=== PATIENT | male | born 1945 | race Caucasian/White ===

== ENCOUNTER 2018-04-08 09:46 | Inpatient (IN) ==
[2018-04-08] MEDS ORDERED: Morphine Inj 4 MG/ML Vial IV.PUSH ONE (11:22)
[2018-04-08] MEDS ORDERED: MethylPREDNISolone Sod Succinate Inj 125 MG/2 ML Vial IV.PUSH ONE (11:22)
[2018-04-08] MEDS ORDERED: Sod Chloride 0.9% Inj 1,000 ML IV.SIG ONE (11:22)
--- NOTE | 2018-04-08 11:30 | ED ---
HPI General Chief Complaint: Abdominal Pain Stated Complaint: Abdominal Complaint/Asthma Time Seen by Provider: 04/08/18 10:39 Source: patient Mode of arrival: ambulatory Limitations: no limitations History of Present Illness HPI narrative: 72-year-old male who presents to the ED for evaluation of abdominal pain. Patient has had abdominal pain, white stools, nausea vomiting as well as shortness of breath for the past week or 2. Per patient the pain has worsened for the past week and he has not been able to keep much down. Per patient he was seen by for his asthma and was given prednisone but he states that the pain is does he was given was too low for him. Per patient he usually takes high doses of steroids when he gets about exacerbation and believes that this is the reason his shortness of breath still present. Per patient he is never had a white stools before. The white stool starts in once today. Per patient or solid. No liquidy. No chest pain but has shortness of breath with exertion as well as with wheezing. Uses inhalers at home with some relief. He denies any vomiting today and states that yesterday he felt very thirsty and had to drink a lot of water and was able to keep it down. Patient the pain currently is 4 out of 10 and is mostly diffuse in the abdomen but nothing seems to reproduce it on not. Denies any surgeries to his abdomen. No other medical issues. No blood in his stool. No blood thinners. No cardiac history Related Data Home Medications Medication Instructions Recorded Confirmed albuterol sulfate 2 puff INHALATION Q4-6H PRN 04/08/18 04/08/18 ipratropium-albuterol 3 ml INHALATION QID PRN 04/08/18 04/08/18 montelukast 10 mg PO QPM 04/08/18 04/08/18 omeprazole 40 mg PO DAILY 04/08/18 04/08/18 tamsulosin 0.4 mg PO DAILY 04/08/18 04/08/18 Allergies Allergy/AdvReac Type Severity Reaction Status Date / Time No Known Allergies Allergy Verified 04/08/18 10:44 Review of Systems ROS: all other systems reviewed are negative [facility] Medical History Medical History Diabetes (Acute) GERD (gastroesophageal reflux disease) (Acute) GERD (gastroesophageal reflux disease) (Acute) Pneumonia (Acute) Prostate enlargement (Acute) Surgical History Surgical History H/O shoulder surgery (Acute) History of back surgery (Acute) Hx of tonsillectomy (Acute) S/P wrist surgery (Acute) Social History Social History Substance History: No History of Abuse Second Hand Smoke Exposure: No Smoking Status: Current every day smoker Tobacco Type: Cigarettes How Often Do You Have a Drink Containing Alcohol: Unable to Obtain Recent Travel in [facility] within the Last 8 Weeks: Yes Recent Out of Country Travel within the Last 8 Weeks: No Immunization History Tetanus Immunization: <5 Years Exam Narrative Exam Narrative: GENERAL: Well-appearing in no distress. SKIN: Focused skin assessment warm/dry. HEAD: Atraumatic. Normocephalic. EYES: Pupils equal and round. No scleral icterus. No injection or drainage. ENT: No nasal bleeding or discharge. Mucous membranes pink and moist. Tongue is midline. No uvula deviation. NECK: Trachea midline. No JVD. CARDIOVASCULAR: Regular rate and rhythm. No murmur appreciated. RESPIRATORY: No accessory muscle use. Clear to auscultation. Breath sounds equal bilaterally. GASTROINTESTINAL: Abdomen soft, tender to palpation of the abdomen, nondistended. Hepatic and splenic margins not palpable. MUSCULOSKELETAL: No obvious deformities. No clubbing. No cyanosis. No edema. Full range of motion of the upper and lower extremities bilaterally. 2+ pulses bilaterally. NEUROLOGICAL: Awake and alert. No obvious cranial nerve deficits. Motor grossly within normal limits. Normal speech. PSYCHIATRIC: Appropriate mood and affect; insight and judgment normal. Course Initial Documented Vital Signs Temperature 97.9 F 04/08/18 09:51 Pulse Rate 95 H 04/08/18 09:51 Respiratory Rate 22 04/08/18 09:51 Blood Pressure 166/93 H 04/08/18 09:51 Pulse Oximetry 96 04/08/18 09:51 Last Documented Vital Signs Temperature 97.9 F 04/08/18 09:51 Pulse Rate 68 04/08/18 13:30 Respiratory Rate 19 04/08/18 13:30 Blood Pressure 136/78 04/08/18 13:30 Pulse Oximetry 96 04/08/18 13:30 Medical Decision Making MDM Narrative Medical decision making narrative: 72-year-old male who presents to the ED for evaluation of abdominal pain. Patient was properly examined and was found to have signs and symptoms consistent with appears to be abdominal pain. Unclear etiology. Labs and imaging ordered. Labs and imaging showed what appears to be acute liver injury. Unclear etiology at this time. I order hepatitis panel as well as ultrasound. Ultrasound and CAT scan cannot really visualize the gallbladder although appears to be present. At this time patient would require HIDA scan for further evaluation and treatment as well as GI consult for further evaluation of the symptoms. Case discussed with my attending who agrees with plan. Case discussed with the residents for readmission to their service. Medical Screen Exam Complete: Yes Emergency Medical Condition: Yes Differential Diagnosis Differential Diagnosis: Acute abdomen versus abdominal pain versus gastroenteritis versus gastritis versus white stools versus CHF versus ACS versus diverticulitis Medical Records Medical records reviewed: Yes I reviewed the patient's medical records. Lab Data Lab results reviewed: Yes I reviewed the patient's lab results. Result diagrams: 04/08/18 11:25 04/08/18 11:25 Lab Results 04/08/18 04/08/18 04/08/18 Range/Units 11:00 11:25 11:25 WBC 8.0 (4.0-11.0) th/mm3 RBC 4.88 (4.50-5.90) mil/mm3 Hgb 15.2 (13.0-17.0) gm/dL Hct 43.6 (39.0-51.0) % MCV 89.2 (80.0-100.0) fL MCH 31.2 (27.0-34.0) pg MCHC 34.9 (32.0-36.0) % RDW 15.4 (11.6-17.2) % Plt Count 213 (150-450) th/mm3 MPV 8.7 (7.0-11.0) fL Prelim Diff (Auto) Manual diff required WBC Differential Manual diff final Seg Neuts % (Manual) 46 (16-70) % Band Neuts % (Manual) 10 H (0-6) % Lymphocytes % (Manual) 25 (9-44) % Monocytes % (Manual) 13 H (0-8) % Eosinophils % (Manual) 4 (0-4) % Basophils % (Manual) 1 (0-2) % Myelocytes % (Man) 1 H (0-0) % Abs Neuts (Manual) 4.6 (1.8-7.7) th/mm3 Differential Comment . Platelet Estimate Normal (Normal) Platelet Morphology Normal (Normal) Sodium 134 L (136-145) meq/L Potassium 3.9 (3.5-5.1) meq/L Chloride 103 (98-107) meq/L Carbon Dioxide 22.3 (21.0-32.0) meq/L Anion Gap 9 (5-15) meq/L BUN 14 (7-18) mg/dL Creatinine 1.46 H (0.60-1.30) mg/dL Estimated GFR 48 L (>89) mL/min Random Glucose 120 H (74-106) mg/dL Lactic Acid (0.4-2.0) mmol/L Calcium 8.4 L (8.5-10.1) mg/dL Magnesium 2.1 (1.5-2.5) mg/dL Total Bilirubin 6.9 H (0.2-1.0) mg/dL AST 276 H (15-37) U/L ALT 424 H (12-78) U/L Alkaline Phosphatase 540 H (45-117) U/L Troponin I Less than 0.02 L (0.02-0.05) ng/mL Total Protein 6.9 (6.4-8.2) g/dL Albumin 3.1 L (3.4-5.0) g/dL Lipase 161 (73-393) U/L Urine Color Francine (Yellw/Straw) Urine Clarity Clear (Clear) Urine pH 6.0 (5.0-8.5) Ur Specific Gardner 1.005 (1.002-1.035) Urine Protein 30 H (Neg-Trace) mg/dL Urine Glucose (UA) Negative (Negative) mg/dL Urine Ketones Negative (Negative) mg/dL Urine Occult Blood Moderate H (Negative) Urine Nitrate Negative (Negative) Urine Bilirubin Negative (Negative) Urine Urobilinogen Less than 2 (Less than 2) mg/dL Ur Leukocyte Esterase Negative (Negative) Urine RBC 4 H (0-3) /hpf Urine WBC Less than 1 (0-5) /hpf Ur Squamous Epith Cells <1 (0-5) /hpf Urine Mucus Few H (Occasional) /lpf Micro UA Comment Culture not ind Ur Microscopic Review Not Reportable Urine Culture Comments Culture not ind 04/08/18 Range/Units 11:49 WBC (4.0-11.0) th/mm3 RBC (4.50-5.90) mil/mm3 Hgb (13.0-17.0) gm/dL Hct (39.0-51.0) % MCV (80.0-100.0) fL MCH (27.0-34.0) pg MCHC (32.0-36.0) % RDW (11.6-17.2) % Plt Count (150-450) th/mm3 MPV (7.0-11.0) fL Prelim Diff (Auto) WBC Differential Seg Neuts % (Manual) (16-70) % Band Neuts % (Manual) (0-6) % Lymphocytes % (Manual) (9-44) % Monocytes % (Manual) (0-8) % Eosinophils % (Manual) (0-4) % Basophils % (Manual) (0-2) % Myelocytes % (Man) (0-0) % Abs Neuts (Manual) (1.8-7.7) th/mm3 Differential Comment Platelet Estimate (Normal) Platelet Morphology (Normal) Sodium (136-145) meq/L Potassium (3.5-5.1) meq/L Chloride (98-107) meq/L Carbon Dioxide (21.0-32.0) meq/L Anion Gap (5-15) meq/L BUN (7-18) mg/dL Creatinine (0.60-1.30) mg/dL Estimated GFR (>89) mL/min Random Glucose (74-106) mg/dL Lactic Acid Less than 0.4 L (0.4-2.0) mmol/L Calcium (8.5-10.1) mg/dL Magnesium (1.5-2.5) mg/dL Total Bilirubin (0.2-1.0) mg/dL AST (15-37) U/L ALT (12-78) U/L Alkaline Phosphatase (45-117) U/L Troponin I (0.02-0.05) ng/mL Total Protein (6.4-8.2) g/dL Albumin (3.4-5.0) g/dL Lipase (73-393) U/L Urine Color (Yellw/Straw) Urine Clarity (Clear) Urine pH (5.0-8.5) Ur Specific Gardner (1.002-1.035) Urine Protein (Neg-Trace) mg/dL Urine Glucose (UA) (Negative) mg/dL Urine Ketones (Negative) mg/dL Urine Occult Blood (Negative) Urine Nitrate (Negative) Urine Bilirubin (Negative) Urine Urobilinogen (Less than 2) mg/dL Ur Leukocyte Esterase (Negative) Urine RBC (0-3) /hpf Urine WBC (0-5) /hpf Ur Squamous Epith Cells (0-5) /hpf Urine Mucus (Occasional) /lpf Micro UA Comment Ur Microscopic Review Urine Culture Comments Imaging Data Attestation: I personally reviewed and interpreted this imaging study as follows : Radiologist's impression: Abdomen/Pelvis CT 04/08/18 11:22 CONCLUSION: 1. Unremarkable CT scan of the abdomen and pelvis for patient's age. Chest X-Ray 04/08/18 11:22 CONCLUSION: Mild left ventricular hypertrophy otherwise negative Gallbladder Ultrasound 04/08/18 12:29 CONCLUSION: 1. Poorly visualized gallbladder. HIDA scan may help if cholecystitis is suspected. ECG Data Attestation: I personally reviewed and interpreted this ECG as follows: Interpretation: EKG shows sinus rhythm with no sign of acute ischemia and arrhythmia read by me and attending. Ventricular rate of 80 bpm, VA interval of 177 ms. Discharge Plan Discharge Order Discharge Orders: ED Use Only Admit Order (Routine); Ordered 04/08/18 Ordered By: Cholo Garcia Physicians Team ED Provider: Cesar Black ED Midlevel Provider: Cholo Garcia Rxs /Orders / Referrals /Forms Prescriptions: No Action omeprazole 40 mg Capsule,Delayed Release(Dr/Ec) 40 mg PO DAILY RF: 0 tamsulosin 0.4 mg Capsule 0.4 mg PO DAILY RF: 0 montelukast 10 mg Tablet 10 mg PO QPM RF: 0 ipratropium-albuterol 0.5 mg-3 mg(2.5 mg base)/3 mL Solution For Nebulization 3 ml INHALATION QID PRN (Reason: Dyspnea) RF: 0 albuterol sulfate 90 mcg/actuation Hfa Aerosol Inhaler 2 puff INHALATION Q4-6H PRN (Reason: Respiratory Distress) RF: 0 Discharge Interventions Interventions: Vital Signs Last Done: 04/08/18 13:30 Status ED Status: Admitted Patient
[2018-04-08 12:04] LABS: Hematocrit 43.6 % (39.0-51.0); Hemoglobin 15.2 gm/dL (13.0-17.0); Mean Corpuscular HGB Conc 34.9 % (32.0-36.0); Mean Corpuscular Hemoglobin 31.2 pg (27.0-34.0); Mean Corpuscular Volume 89.2 fL (80.0-100.0); Mean Platelet Volume 8.7 fL (7.0-11.0); Platelet Count 213 th/mm3 (150-450); Red Blood Count 4.88 mil/mm3 (4.50-5.90); Red Cell Distribution Width 15.4 % (11.6-17.2)
[2018-04-08 12:12] LABS: Bilirubin,Urine Negative (Negative); Clarity,Urine Clear (Clear); Color,Urine Amber (Yellw/Straw); Glucose,Urine (UA) Negative (Negative); Leukocyte Esterase,Urine Negative (Negative); Mucus,Urine Few /lpf (Occasional); Nitrite,Urine Negative (Negative); Specific Gravity,Urine 1.005 (1.002-1.035); Squamous Epithelial Cell,Urine <1 /hpf (0-5)
[2018-04-08 12:26] LABS: Alkaline Phosphatase 540 U/L (45-117); Total Protein 6.9 g/dL (6.4-8.2)
[2018-04-08 12:29] LABS: Alanine Aminotransferase 424 U/L (12-78); Albumin 3.1 g/dL (3.4-5.0); Anion Gap 9 meq/L (5-15); Aspartate Aminotransferase 276 U/L (15-37); Blood Urea Nitrogen 14 mg/dL (7-18); Calcium 8.4 mg/dL (8.5-10.1); Carbon Dioxide 22.3 meq/L (21.0-32.0); Chloride 103 meq/L (98-107); Glomerular Filtration Rate 48 mL/min (>89); Glucose,Random 120 mg/dL (74-106); Lipase 161 U/L (73-393); Magnesium 2.1 mg/dL (1.5-2.5); Potassium 3.9 meq/L (3.5-5.1); Sodium 134 meq/L (136-145)
--- NOTE | 2018-04-08 12:31 | XR ---
EXAM DATE: 04/08/2018 12:20 PM EST AGE/SEX: 72 years / Male INDICATIONS: Cough. CLINICAL DATA: This is the patient's initial encounter. Patient reports that signs and symptoms have been present for 2 days and indicates a pain score of 0/10. MEDICAL/SURGICAL HISTORY: Diabetes mellitus type II. Gastroesophageal reflux disease. Tonsille ctomy. Shoulder surgery, back surgery. COMPARISON: No prior exams available for comparison. FINDINGS: A single AP view of the chest demonstrates the lungs to be symmetrically aerated without evidence of mass, infiltrate or effusion. Mild left ventricular hypertrophy. Osseous structures are intact. CONCLUSION: Mild left ventricular hypertrophy otherwise negative Electronically signed by: Leo Mcdonald MD Board Certified Radiologist 04/08/2018 12:30 PM EST
[2018-04-08 12:48] LABS: Eosinophils 4 % (0-4); Lymphocytes 25 % (9-44); Monocytes 13 % (0-8); Myelocytes 1 % (0-0)
[2018-04-08 12:51] LABS: Platelet Morphology Normal (Normal)
[2018-04-08 12:52] LABS: Platelet Estimate Normal (Normal)
--- NOTE | 2018-04-08 13:22 | CT ---
EXAM DATE: 04/08/2018 1:05 PM EST AGE/SEX: 72 years / Male INDICATIONS: Diffuse abdomen pain and white stool. CLINICAL DATA: This is the patient's initial encounter. Patient reports that signs and symptoms have been present for 1 day and indicates a pain score of 7/10. MEDICAL/SURGICAL HISTORY: Diabetes. Asthma. Gastroesophageal reflux disease. None. ORAL CONTRAST: No oral contrast ingested. RADIATION DOSE: 15.93 CTDI (mGy) COMPARISON: No prior exams available for comparison. TECHNIQUE: Multiple contiguous axial images were obtained through the abdomen and pelvis following b olus infusion of 95 ml Omnipaque 350 (iohexol) nonionic water-soluble contrast as a single exam dos e. No oral contrast ingested. Using automated exposure control and adjustment of the mA and/or kV ac cording to patient size, radiation dose was kept as low as reasonably achievable to obtain optimal di agnostic quality images. DICOM format image data is available electronically for review and comparis on. FINDINGS: Lower Lungs: The visualized lower lungs are clear. Liver: The liver has a homogeneous density without space-occupying lesion. There is no dilation of th e biliary tree. The gallbladder is contracted. Spleen: Homogeneous density without enlargement. Pancreas: Unremarkable without mass or calcification. Kidneys: Normal in size and shape. No evidence of mass or hydronephrosis. Adrenal Glands: Unremarkable. Aorta: The aorta and proximal iliac vessels are grossly unremarkable without aneurysmal dilation. Bowel/Mesentery: The bowel loops are grossly unremarkable. The cecum and sigmoid colon have a normal configuration. The appendix is unremarkable. No inflammatory changes. There is stool throughout the colon. No free fluid. Abdominal Wall: Intact. Retroperitoneum: No evidence of adenopathy in the retrocrural, para-aortic, or deep pelvic regions. Bladder: Contours are smooth. Reproductive Organs: No abnormal masses or calcifications seen. Inguinal: The inguinal region is unremarkable without evidence of adenopathy. Bony Structures: Primary bony degenerative changes. Lumbar spinal fusion at L4-5. CONCLUSION: 1. Unremarkable CT scan of the abdomen and pelvis for patient's age. Electronically signed by: Norbert Hendrickson MD Board Certified Radiologist 04/08/2018 1:21 PM EST
--- NOTE | 2018-04-08 13:52 | US ---
EXAM DATE: 04/08/2018 1:33 PM EST AGE/SEX: 72 years / Male INDICATIONS: Right upper quadrant pain. CLINICAL DATA: This is the patient's initial encounter. Patient reports that signs and symptoms have been present for 4 - 6 days and indicates a pain score of 3/10. MEDICAL/SURGICAL HISTORY: Gastroesophageal reflux disease. Diabetes. Pneumonia. Prostate enlarg ement. Tonsillectomy. Shoulder surgery. Back surgery. Wrist surgery. [place] [facility] [place]AST[place]. . MEASUREMENTS: Liver:__ 16.6 cm. Common Bile Duct:__ 5mm. FINDINGS: Liver: Increased echogenicity without focal lesion or ductal dilatation. Portal Vein: Hepatopedal flow seen in portal vein. Common Duct: No intraluminal mass or stone visualized. Gallbladder: Gallbladder is contracted and poorly visualized. This is similar to what was seen on th e CT scan of 04/08/2018. Chronic cholecystitis could be a consideration. Pancreas: Not well visualized. Right Kidney: Normal echogenicity and cortical thickness. No mass or hydronephrosis. CONCLUSION: 1. Poorly visualized gallbladder. HIDA scan may help if cholecystitis is suspected. Electronically signed by: Leo Mcdonald MD Board Certified Radiologist 04/08/2018 1:51 PM EST
[2018-04-08] MEDS ORDERED: Bisacodyl 10 MG Supp RECTAL PRN (15:09)
[2018-04-08 16:11] LABS: Hepatitis A IgM Antibody Nonreactive (Nonreactive); Hepatitits B Surface Antigen Nonreactive (Nonreactive)
--- NOTE | 2018-04-08 16:13 | P.HPFP ---
History of Present Illness Service: vice president of compliance inpatient medicine service Primary Care Physician: Caesar Faria History of Present Illness: Patient is a 72 yo M with hx of asthma, borderline DM, GERD, and BPH who presents with almost a week of abdominal pain after eating, white stools, lack of appetite. Patient was diagnosed with an asthma exacerbation about 2 weeks ago. He presented to an urgent care and was prescribed Augmenyin, chlorpheniramine, guaifenesin, methylprednisolone, oxymetazoline. Patient reports that the medications helped his asthma symptoms for a few days, but then 8 days into Augmentin treatment, patient started to experience upset stomach and white stools starting around Sunday of last week, which was also soon after he went to the local [employer]. While at the races, he had a beer or 2 and an energy drink. Patient reports that his breathing is still not back to baseline and he still feels like he is having an asthma exacerbation. He describes his stools as white like chalk. He had two episodes of white stools last night. When he initially presented he had a band of abdominal pain at the level of his umbilicus. He described the pain as feeling like the flu. Patient reports that he no longer has the constant abdominal pain, but rather has abdominal pain within an hour of eating. Patient reports that he has had subjective fever, chills, night swats, feeling hot and cold within the last week , including last night. He reports some nausea and vomiting, decreased appetite , tolerating liquids well. Patient reported some dysuria about 2 days ago, which he describes as mild discomfort associated with very dark urine, deep yellow almost orange. Patient reports that as a baby, he had a blood transfusion soon after for maternal hemorrhage. Patient also reports having a fish sandwich from [employer] several weeks prior to presenting today. 6-7 years ago, patient did have an episode of jaundice. He presented to the hospital where they did a bunch of tests but couldn't find anything. He has a h/o low back surgery, lumbar screws and plates. 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 This includes certification that hospital inpatient services are reasonable and necessary and in the case of services not specified as inpatient-only under 42 CFR 419.22(n), that they are appropriately provided as inpatient services in accordance to with the 2-midnight benchmark under 43 CFR 412.3(e) Estimated Total Length of Stay (Days): 2 Plans for Post Hospital Care: Not yet determined Review of Systems Reports + fever or chills No polyuria, polydipsia Denies vision changes, eye pain, hearing changes, rhinorrhea, sore throat Denies sore throat, runny nose, cough No chest pain, palpitations, reports + shortness of breath + abdominal pain after eating Denies constipation, diarrhea, vomiting, black or bloody stools, reports + nausea + some dysuria, possible hematuria Denies muscle/joint pain, weakness, headache No rashes, itching PMFSH - History History Provided By: Patient, Family Member - Medical History Medical History: Medical History (Last Reviewed 04/08/18 @ 15:13 by Ranjit Coleman MD) Diabetes GERD (gastroesophageal reflux disease) GERD (gastroesophageal reflux disease) Pneumonia Prostate enlargement - Surgical History Surgical History: Surgical History (Last Reviewed 04/08/18 @ 15:13 by Ranjit Coleman MD) H/O shoulder surgery History of back surgery Hx of tonsillectomy S/P wrist surgery - Tobacco History Second Hand Smoke Exposure: No Tobacco Use In Past 30 Days: No Smoking Status: Current every day smoker Tobacco Type: Cigarettes - Alcohol History How Often Do You Have a Drink Containing Alcohol: Unable to Obtain - Substance Use History Substance History: No History of Abuse - Travel History Recent Travel in the [place] Within the Last 8 Weeks: Yes Recent Travel Out of the Country Within the Last 8 Weeks: No - Immunization History Tetanus Immunization: <5 Years Medications and Allergies Active Medications: Active Medications Al Hydroxide/Mg Hydroxide (Milk Of Magnesia Liq) 30 ml PO Q12H PRN PRN Reason: Mild Constipation Bisacodyl (Dulcolax Supp) 10 mg RECTAL DAILY PRN PRN Reason: SEVERE CONSITIPATION Lactulose (Lactulose Liq) 30 ml PO DAILY PRN PRN Reason: SEVERE CONSITIPATION Senna/Docusate Sodium (Марина-Colace) 1 tab PO BID EVERARDO Sennosides (Senokot) 17.2 mg PO Q12H PRN PRN Reason: Moderate Constipation Sodium Chloride (Ns Flush) 2 ml IV.FLUSH BID EVERARDO Sodium Chloride (Ns Flush) 2 ml IV.FLUSH PRN PRN PRN Reason: FLUSH AFTER USING IV ACCESS Allergies Allergy/AdvReac Type Severity Reaction Status Date / Time No Known Allergies Allergy Verified 04/08/18 10:44 Home Medications Medication Instructions Recorded Confirmed Type albuterol sulfate 2 puff INHALATION Q4-6H PRN 04/08/18 04/08/18 History ipratropium-albuterol 3 ml INHALATION QID PRN 04/08/18 04/08/18 History montelukast 10 mg PO QPM 04/08/18 04/08/18 History omeprazole 40 mg PO DAILY 04/08/18 04/08/18 History tamsulosin 0.4 mg PO DAILY 04/08/18 04/08/18 History Exam Vital signs: Vital Signs 04/08/18 09:51 04/08/18 09:54 04/08/18 12:01 Temperature 97.9 F Pulse Rate 95 H 88 68 Respiratory Rate 22 19 22 Blood Pressure 166/93 H 136/78 Pulse Oximetry 96 95 04/08/18 13:30 Temperature Pulse Rate 68 Respiratory Rate 19 Blood Pressure 136/78 Pulse Oximetry 96 Intake & Output 04/07/18 04/08/18 04/08/18 18:59 06:59 18:59 Intake Total 1000 / 1000 Balance 1000 / 1000 Weight 104.326 kg Intake: IV 1000 / 1000 NS Inj 1,000 ML @ Wide Open IV. 1000 / 1000 SIG BOLUS ONE Rx#:[id number] Narrative: GENERAL: Well-appearing in no distress. SKIN: Focused skin assessment warm/dry. HEAD: Atraumatic. Normocephalic. EYES: Pupils equal and round. + scleral and sublingual icterus. No injection or drainage. ENT: No nasal bleeding or discharge. Mucous membranes pink and moist. Tongue is midline. No uvula deviation. NECK: Trachea midline. No JVD. CARDIOVASCULAR: Regular rate and rhythm. No murmur appreciated. RESPIRATORY: No accessory muscle use. Clear to auscultation. Breath sounds equal bilaterally. GASTROINTESTINAL: Abdomen soft, nontender to palpation of the abdomen, nondistended. Hepatic and splenic margins not palpable. Negative Osei sign. MUSCULOSKELETAL: No obvious deformities. No clubbing. No cyanosis. No edema. Full range of motion of the upper and lower extremities bilaterally. 2+ pulses bilaterally. NEUROLOGICAL: Awake and alert. No obvious cranial nerve deficits. Motor grossly within normal limits. Normal speech. PSYCHIATRIC: Appropriate mood and affect; insight and judgment normal. Results - Labs Result diagrams: 04/08/18 11:25 04/08/18 11:25 Abnormal lab results 04/08/18 04/08/18 04/08/18 Range/Units 11:00 11:25 11:25 Band Neuts % (Manual) 10 H (0-6) % Monocytes % (Manual) 13 H (0-8) % Myelocytes % (Man) 1 H (0-0) % Sodium 134 L (136-145) meq/L Creatinine 1.46 H (0.60-1.30) mg/dL Estimated GFR 48 L (>89) mL/min Random Glucose 120 H (74-106) mg/dL Lactic Acid (0.4-2.0) mmol/L Calcium 8.4 L (8.5-10.1) mg/dL Total Bilirubin 6.9 H (0.2-1.0) mg/dL AST 276 H (15-37) U/L ALT 424 H (12-78) U/L Alkaline Phosphatase 540 H (45-117) U/L Troponin I Less than 0.02 L (0.02-0.05) ng/mL Albumin 3.1 L (3.4-5.0) g/dL Urine Protein 30 H (Neg-Trace) mg/dL Urine Occult Blood Moderate H (Negative) Urine RBC 4 H (0-3) /hpf Urine Mucus Few H (Occasional) /lpf 04/08/18 Range/Units 11:49 Band Neuts % (Manual) (0-6) % Monocytes % (Manual) (0-8) % Myelocytes % (Man) (0-0) % Sodium (136-145) meq/L Creatinine (0.60-1.30) mg/dL Estimated GFR (>89) mL/min Random Glucose (74-106) mg/dL Lactic Acid Less than 0.4 L (0.4-2.0) mmol/L Calcium (8.5-10.1) mg/dL Total Bilirubin (0.2-1.0) mg/dL AST (15-37) U/L ALT (12-78) U/L Alkaline Phosphatase (45-117) U/L Troponin I (0.02-0.05) ng/mL Albumin (3.4-5.0) g/dL Urine Protein (Neg-Trace) mg/dL Urine Occult Blood (Negative) Urine RBC (0-3) /hpf Urine Mucus (Occasional) /lpf Short CBC 04/08/18 Range/Units 11:25 WBC 8.0 (4.0-11.0) th/mm3 Hgb 15.2 (13.0-17.0) gm/dL Hct 43.6 (39.0-51.0) % Plt Count 213 (150-450) th/mm3 BMP 04/08/18 11:25 Sodium 134 L Potassium 3.9 Chloride 103 Carbon Dioxide 22.3 BUN 14 Creatinine 1.46 H Calcium 8.4 L Cardiac Enzymes 04/08/18 Range/Units 11:25 Troponin I Less than 0.02 L (0.02-0.05) ng/mL Liver Function 04/08/18 Range/Units 11:25 Total Bilirubin 6.9 H (0.2-1.0) mg/dL AST 276 H (15-37) U/L ALT 424 H (12-78) U/L Alkaline Phosphatase 540 H (45-117) U/L Albumin 3.1 L (3.4-5.0) g/dL Urine 04/08/18 Range/Units 11:00 Urine Color Francine (Yellw/Straw) Urine Clarity Clear (Clear) Urine pH 6.0 (5.0-8.5) Ur Specific [place] 1.005 (1.002-1.035) Urine Protein 30 H (Neg-Trace) mg/dL Urine Glucose (UA) Negative (Negative) mg/dL - Imaging Impressions Abdomen/Pelvis CT 04/08/18 11:22 CONCLUSION: 1. Unremarkable CT scan of the abdomen and pelvis for patient's age. Chest X-Ray 04/08/18 11:22 CONCLUSION: Mild left ventricular hypertrophy otherwise negative Gallbladder Ultrasound 04/08/18 12:29 CONCLUSION: 1. Poorly visualized gallbladder. HIDA scan may help if cholecystitis is suspected. Caprini VTE Risk Assessment Caprini VTE Risk Assessment: Moderate/High Risk (score >= 2) Caprini Risk Assessment Model: Point Value = 1 Point Value = 2 Point Value = 3 Point Value = 5 Age 41-60 Minor surgery BMI > 25 kg/m2 Swollen legs Varicose veins or History of unexplained or recurrent spontaneous Oral contraceptives or hormone replacement Sepsis (< 1 month) Serious lung disease, including pneumonia (< 1 month) Abnormal pulmonary function Acute myocardial infarction Congestive heart failure (< 1 month) History of inflammatory bowel disease Medical patient at bed rest Age 61-74 Arthroscopic surgery Major open surgery (> 45 min) Laparoscopic surgery (> 45 min) Malignancy Confined to bed (> 72 hours) Immobilizing plaster cast Central venous access Age >= 75 History of VTE Family history of VTE Factor V Leiden Prothrombin [id number] Lupus anticoagulant Anticardiolipin antibodies Elevated serum homocysteine Heparin-induced thrombocytopenia Other congenital or acquired thrombophilia Stroke (< 1 month) Elective arthroplasty Hip, pelvis, or leg fracture Acute spinal cord injury (< 1 month) Prophylaxis Regimen: Total Risk Factor Score Risk Level Prophylaxis Regimen 0-1 Low Early ambulation 2 Moderate Order ONE of the following: *Sequential Compression Device (SCD) *Heparin 5000 units SQ BID 3-4 Higher Order ONE of the following medications: *Heparin 5000 units SQ TID *Enoxaparin/Lovenox 40 mg SQ daily (WT < 150 kg, CrCl > 30 mL/min) *Enoxaparin/Lovenox 30 mg SQ daily (WT < 150 kg, CrCl > 10-29 mL/min) *Enoxaparin/Lovenox 30 mg SQ BID (WT < 150 kg, CrCl > 30 mL/min) AND/OR *Sequential Compression Device (SCD) 5 or more Highest Order ONE of the following medications: *Heparin 5000 units SQ TID (Preferred with Epidurals) *Enoxaparin/Lovenox 40 mg SQ daily (WT < 150 kg, CrCl > 30 mL/min) *Enoxaparin/Lovenox 30 mg SQ daily (WT < 150 kg, CrCl > 10-29 mL/min) *Enoxaparin/Lovenox 30 mg SQ BID (WT < 150 kg, CrCl > 30 mL/min) AND *Sequential Compression Device (SCD) Assessment and Plan - Assessment (1) Hyperbilirubinemia Code(s): E80.6 - Other disorders of bilirubin metabolism Status: Acute Plan: Patient is elevation of both conjugated and unconjugated bilirubin, but conjugated is elevated over unconjugated. Differential diagnosis includes biliary obstruction, intrahepatic cholestasis, hepatocellular injury, hepatocellular defects of clavicular excretion or sinusoidal reuptake, others. -Total bilirubin, conjugated bilirubin, unconjugated bilirubin, alkaline phosphatase, aminotransferases, AST, ALT, PT/INR, and albumin -Right upper quadrant ultrasound -ERCP -Antimitochondrial antibody to evaluate for primary biliary cholangitis (2) Transaminitis Code(s): R74.0 - Nonspecific elevation of levels of transaminase and lactic acid dehydrogenase [LDH] Status: Acute Plan: -Trend LFTs -GGT -Alkaline phosphatase -Right upper quadrant ultrasound showed poorly visualized gallbladder -ERCP ordered -AMA -Consider liver biopsy -Hepatitis panel ordered and was negative (3) YANG (acute kidney injury) Code(s): N17.9 - Acute kidney failure, unspecified Status: Acute Plan: Unclear if YANG or CKD. Likely prerenal YANG based on the history. -Continue IV fluid hydration -Continue to monitor (4) Asthma Code(s): J45.909 - Unspecified asthma, uncomplicated Status: Acute Plan: Patient required Solu-Medrol and breathing treatments in the emergency department. -Continue prednisone 40 mg p.o. daily -Continue to alternate albuterol nebs and duo nebs -Continue home medication montelukast (5) BPH (benign prostatic hyperplasia) Code(s): N40.0 - Benign prostatic hyperplasia without lower urinary tract symptoms Status: Acute Plan: -Continue home medication of tamsulosin (6) GERD (gastroesophageal reflux disease) Code(s): K21.9 - Gastro-esophageal reflux disease without esophagitis Status: Acute Plan: -Continue home medication of omeprazole with pharmacy replacement - Assessment and Plan Patient is a 72 yo M with hx of asthma, borderline DM, GERD, and BPH who presents with 2 weeks of asthma exacerbation and almost a week of abdominal pain after eating, white stools, lack of appetite with associate fever and chills, found to have hyperbilirubinemia, transaminitis, YANG, on top of his asthma exacerbation. Plan to admit patient to workup this problem with extensive labs and imaging while treating his asthma exacerbation with steroids and breathing treatments. FEN/ppx: Fluids: Maintenance IV fluids Electrolytes: Monitor and replete Nutrition: Regular basic diet as tolerated DVT prophylaxis: Lovenox 40 mg subcu daily GI prophylaxis: Continue patient home medication of PPI
[2018-04-08] MEDS ORDERED: Naloxone Inj 0.4 MG/ML Vial IV.PUSH PRN (16:45)
[2018-04-08] MEDS ORDERED: Morphine Inj 4 MG/ML Vial IV.PUSH PRN (16:45)
[2018-04-08] MEDS: Enoxaparin Inj 40 MG/0.4 ML Syringe SQ SCH (17:57)
[2018-04-08] MEDS: Sod Chloride 0.9% Inj 1,000 ML IV.CONT SCH (17:58)
[2018-04-08] MEDS: Montelukast 10 MG Tablet PO SCH (17:58)
[2018-04-08 18:30] LABS: % Iron Saturation 29.6 % (20-50)
--- NOTE | 2018-04-08 19:54 | MR ---
EXAM DATE: 04/08/2018 7:43 PM EST AGE/SEX: 72 years / Male INDICATIONS: Jaundice. CLINICAL DATA: This is the patient's initial encounter. Patient reports that signs and symptoms have been present for 1 day and indicates a pain score of 4/10. MEDICAL/SURGICAL HISTORY: Diabetes mellitus type II. Gastric bypass. Wrist sx., Bilateral shoul tatum sx. COMPARISON: [facility], CT ABDOMEN & PELVIS W CONTRAST, 04/08/2018. . TECHNIQUE: Multiplanar, multisequence images of the abdomen were obtained without contrast including dedicated cholangiographic images. FINDINGS: Liver: The liver is mildly prominent. Tiny subcentimeter cysts are noted within the liver. No solid hepatic masses are noted.. Scattered fatty infiltration is noted. Intrahepatic Bile Ducts: There is no intrahepatic biliary ductal dilatation. Common Bile Duct: The common bile duct is normal in caliber No filling defects or obstructing lesio ns are identified. Gallbladder: The gallbladder is nondistended and somewhat difficult to evaluate on this examination. Pancreas: The pancreas appears normal in signal with no focal parenchymal abnormalities. The pancrea tic duct is normal in caliber with no filling defects, or obstructing lesions identified. Miscellaneous: The spleen is mildly enlarged. Degenerative changes and scoliosis of the thoracolumbar spine are noted. CONCLUSION: 1. Mild hepatosplenomegaly. 2. Fatty liver. 3. Several tiny subcentimeter hepatic cysts. 4. No biliary ductal dilatation. 5. Degenerative changes and scoliosis of thoracolumbar spine. Electronically signed by: Eros Parry MD Board Certified Radiologist 04/08/2018 7:52 PM EST
[2018-04-08] MEDS ORDERED: predniSONE 20 MG Tablet PO SCH (21:00)
[2018-04-08] MEDS: Senna/Docusate Sodium 8.6/50 MG Tablet PO SCH (21:02)
--- NOTE | 2018-04-08 21:46 | P.HPFP ---
History of Present Illness Primary Care Physician: Caesar Faria History of Present Illness: 72 yo M with hx of asthma, borderline DM, GERD, and BPH presents with about 10 days of intermittent RUQ and epigastric pain and nausea, decreased PO intake and weight loss recently but not before these symptoms. occasional subjective fevers. now with acholic stools as well. Visiting from [place] for two months Inpatient Certification: I certify that the inpatient services were ordered in accordance with Medicare regulations governing the order. This includes certification that hospital inpatient services are reasonable and necessary and in the case of services not specified as inpatient-only under 42 CFR 419.22(n), that they are appropriately provided as inpatient services in accordance to with the 2-midnight benchmark under 43 CFR 412.3(e) Estimated Total Length of Stay (Days): 2 Plans for Post Hospital Care: Not yet determined Review of Systems agree with resident H&P history and ROS [facility] - History History Provided By: Patient, Family Member - Medical History Medical History: Medical History (Last Reviewed 04/08/18 @ 15:13 by Ranjit Coleman MD) Diabetes GERD (gastroesophageal reflux disease) GERD (gastroesophageal reflux disease) Pneumonia Prostate enlargement - Surgical History Surgical History: Surgical History (Last Reviewed 04/08/18 @ 15:13 by Ranjit Coleman MD) H/O shoulder surgery History of back surgery Hx of tonsillectomy S/P wrist surgery - Tobacco History Second Hand Smoke Exposure: No Tobacco Use In Past 30 Days: No Smoking Status: Former smoker Tobacco Type: Cigarettes - Alcohol History How Often Do You Have a Drink Containing Alcohol: 2 to 4 times a month - Substance Use History Substance History: No History of Abuse - Travel History Recent Travel in the [place] Within the Last 8 Weeks: Yes Recent Travel Out of the Country Within the Last 8 Weeks: No - Immunization History Tetanus Immunization: <5 Years Hx Influenza Vaccine This Season: No Medications and Allergies Active Medications: Active Medications Al Hydroxide/Mg Hydroxide (Milk Of James Liq) 30 ml PO Q12H PRN PRN Reason: Mild Constipation Albuterol (Albuterol Neb (Radha)) 2.5 mg NEB Q8HR NEB RADHA Albuterol (Duoneb Neb (Radha)) 1 ampul NEB Q8HR ALT NEB RADHA Last Admin: 04/08/18 20:30 Dose: 1 ampul Bisacodyl (Dulcolax Supp) 10 mg RECTAL DAILY PRN PRN Reason: SEVERE CONSITIPATION Enoxaparin Sodium (Lovenox Inj) 40 mg SQ Q24H [facility] Last Admin: 04/08/18 17:57 Dose: 40 mg Sodium Chloride (Ns Inj) 1,000 mls @ 145 mls/hr IV.CONT .Q6H54M [facility] Last Admin: 04/08/18 17:58 Dose: 145 mls/hr Lactulose (Lactulose Liq) 30 ml PO DAILY PRN PRN Reason: SEVERE CONSITIPATION Montelukast Sodium (Singulair) 10 mg PO DAILY@1800 [facility] Last Admin: 04/08/18 17:58 Dose: 10 mg Morphine Sulfate (Morphine Inj) 4 mg IV.PUSH Q3H PRN PRN Reason: BREAKTHROUGH PAIN Naloxone HCl (Narcan Inj) 0.4 mg IV.PUSH UNSCH PRN PRN Reason: SEE LABEL COMMENTS Pantoprazole Sodium (Protonix) 40 mg PO DAILY [facility] Prednisone (Deltasone) 20 mg PO BID [facility] Senna/Docusate Sodium (Марина-Colace) 1 tab PO BID [facility] Last Admin: 04/08/18 21:02 Dose: Not Given Sennosides (Senokot) 17.2 mg PO Q12H PRN PRN Reason: Moderate Constipation Sodium Chloride (Ns Flush) 2 ml IV.FLUSH BID [facility] Last Admin: 04/08/18 21:02 Dose: Not Given Sodium Chloride (Ns Flush) 2 ml IV.FLUSH PRN PRN PRN Reason: FLUSH AFTER USING IV ACCESS Tamsulosin HCl (Flomax) 0.4 mg PO DAILY [facility] Tramadol HCl (Ultram) 50 mg PO Q4H PRN PRN Reason: PAIN SCALE 3 TO 5 Tramadol HCl (Ultram) 100 mg PO Q4H PRN PRN Reason: PAIN SCALE 6 TO 10 Allergies Allergy/AdvReac Type Severity Reaction Status Date / Time No Known Allergies Allergy Verified 04/08/18 10:44 Home Medications Medication Instructions Recorded Confirmed Type albuterol sulfate 2 puff INHALATION Q4-6H PRN 04/08/18 04/08/18 History ipratropium-albuterol 3 ml INHALATION QID PRN 04/08/18 04/08/18 History montelukast 10 mg PO QPM 04/08/18 04/08/18 History omeprazole 40 mg PO DAILY 04/08/18 04/08/18 History tamsulosin 0.4 mg PO DAILY 04/08/18 04/08/18 History Exam Vital signs: Vital Signs 04/08/18 09:51 04/08/18 09:54 04/08/18 12:01 Temperature 97.9 F Pulse Rate 95 H 88 68 Respiratory Rate 22 19 22 Blood Pressure 166/93 H 136/78 Pulse Oximetry 96 95 04/08/18 13:30 04/08/18 17:18 04/08/18 20:00 Temperature 98 F 98.0 F Pulse Rate 68 78 63 Respiratory Rate 19 17 18 Blood Pressure 136/78 151/87 H 142/67 H Pulse Oximetry 96 95 94 L 04/08/18 20:31 Temperature Pulse Rate 87 Respiratory Rate 18 Blood Pressure Pulse Oximetry 95 Intake & Output 04/08/18 04/08/18 04/09/18 06:59 18:59 06:59 Intake Total 1000 / 1000 Balance 1000 / 1000 Weight 101 kg Intake: IV 1000 / 1000 NS Inj 1,000 ML @ Wide Open IV. 1000 / 1000 SIG BOLUS ONE Rx#:[id number] Other: Weight On Admission 101 kg - Constitutional no acute distress, obese, cooperative - Routine HEENT Exam Head: Present: normocephalic Eye: Present: EOMI, PERRL, scleral injection ENT: Present: mucous membranes moist - Routine Neck Exam Present: supple, full ROM - Routine Respiratory Exam Present: CTA bilaterally. Absent: accessory muscle use, respiratory distress, wheezes, crackles - Routine Cardiovascular Exam Present: RRR, S1, S2. Absent: murmur - Routine Abdominal Exam Present: soft, normoactive bowel sounds. Absent: tenderness, distended, rebound , guarding, mass - Routine Extremities Exam Absent: cyanosis, clubbing, edema - Routine Skin Exam Present: intact, cyanosis. Absent: erythema - Routine Neurological Exam Present: alert, oriented X3. Absent: sensory deficit, motor deficit Results - Labs Result diagrams: 04/08/18 11:25 04/08/18 11:25 Abnormal lab results 04/08/18 04/08/18 04/08/18 Range/Units 11:00 11:25 11:25 Band Neuts % (Manual) 10 H (0-6) % Monocytes % (Manual) 13 H (0-8) % Myelocytes % (Man) 1 H (0-0) % Sodium 134 L (136-145) meq/L Creatinine 1.46 H (0.60-1.30) mg/dL Estimated GFR 48 L (>89) mL/min Random Glucose 120 H (74-106) mg/dL Lactic Acid (0.4-2.0) mmol/L Calcium 8.4 L (8.5-10.1) mg/dL TIBC (250-450) mcg/dL Ferritin (26-388) ng/mL Total Bilirubin 6.9 H (0.2-1.0) mg/dL Direct Bilirubin (0.0-0.2) mg/dL Indirect Bilirubin (0.0-0.8) mg/dL GGT (15-85) U/L AST 276 H (15-37) U/L ALT 424 H (12-78) U/L Alkaline Phosphatase 540 H (45-117) U/L Troponin I Less than 0.02 L (0.02-0.05) ng/mL Albumin 3.1 L (3.4-5.0) g/dL Urine Protein 30 H (Neg-Trace) mg/dL Urine Occult Blood Moderate H (Negative) Urine RBC 4 H (0-3) /hpf Urine Mucus Few H (Occasional) /lpf 04/08/18 04/08/18 Range/Units 11:25 11:49 Band Neuts % (Manual) (0-6) % Monocytes % (Manual) (0-8) % Myelocytes % (Man) (0-0) % Sodium (136-145) meq/L Creatinine (0.60-1.30) mg/dL Estimated GFR (>89) mL/min Random Glucose (74-106) mg/dL Lactic Acid Less than 0.4 L (0.4-2.0) mmol/L Calcium (8.5-10.1) mg/dL TIBC 237 L (250-450) mcg/dL Ferritin 1011 H (26-388) ng/mL Total Bilirubin 7.0 H (0.2-1.0) mg/dL Direct Bilirubin 5.2 H (0.0-0.2) mg/dL Indirect Bilirubin 1.8 H (0.0-0.8) mg/dL GGT 808 H (15-85) U/L AST (15-37) U/L ALT (12-78) U/L Alkaline Phosphatase (45-117) U/L Troponin I (0.02-0.05) ng/mL Albumin (3.4-5.0) g/dL Urine Protein (Neg-Trace) mg/dL Urine Occult Blood (Negative) Urine RBC (0-3) /hpf Urine Mucus (Occasional) /lpf Short CBC 04/08/18 Range/Units 11:25 WBC 8.0 (4.0-11.0) th/mm3 Hgb 15.2 (13.0-17.0) gm/dL Hct 43.6 (39.0-51.0) % Plt Count 213 (150-450) th/mm3 BMP 04/08/18 11:25 Sodium 134 L Potassium 3.9 Chloride 103 Carbon Dioxide 22.3 BUN 14 Creatinine 1.46 H Calcium 8.4 L Cardiac Enzymes 04/08/18 Range/Units 11:25 Troponin I Less than 0.02 L (0.02-0.05) ng/mL Liver Function 04/08/18 04/08/18 Range/Units 11:25 11:25 Total Bilirubin 6.9 H 7.0 H (0.2-1.0) mg/dL Direct Bilirubin 5.2 H (0.0-0.2) mg/dL GGT 808 H (15-85) U/L AST 276 H (15-37) U/L ALT 424 H (12-78) U/L Alkaline Phosphatase 540 H (45-117) U/L Albumin 3.1 L (3.4-5.0) g/dL Urine 04/08/18 Range/Units 11:00 Urine Color Francine (Yellw/Straw) Urine Clarity Clear (Clear) Urine pH 6.0 (5.0-8.5) Ur Specific [place] 1.005 (1.002-1.035) Urine Protein 30 H (Neg-Trace) mg/dL Urine Glucose (UA) Negative (Negative) mg/dL - Imaging Impressions Cholangiopancreatography MRI 04/08/18 00:00 CONCLUSION: 1. Mild hepatosplenomegaly. 2. Fatty liver. 3. Several tiny subcentimeter hepatic cysts. 4. No biliary ductal dilatation. 5. Degenerative changes and scoliosis of thoracolumbar spine. Abdomen/Pelvis CT 04/08/18 11:22 CONCLUSION: 1. Unremarkable CT scan of the abdomen and pelvis for patient's age. Chest X-Ray 04/08/18 11:22 CONCLUSION: Mild left ventricular hypertrophy otherwise negative Gallbladder Ultrasound 04/08/18 12:29 CONCLUSION: 1. Poorly visualized gallbladder. HIDA scan may help if cholecystitis is suspected. Caprini VTE Risk Assessment Caprini VTE Risk Assessment: Moderate/High Risk (score >= 2) (COPD, age of 72) Caprini Risk Assessment Model: Point Value = 1 Point Value = 2 Point Value = 3 Point Value = 5 Age 41-60 Minor surgery BMI > 25 kg/m2 Swollen legs Varicose veins or History of unexplained or recurrent spontaneous Oral contraceptives or hormone replacement Sepsis (< 1 month) Serious lung disease, including pneumonia (< 1 month) Abnormal pulmonary function Acute myocardial infarction Congestive heart failure (< 1 month) History of inflammatory bowel disease Medical patient at bed rest Age 61-74 Arthroscopic surgery Major open surgery (> 45 min) Laparoscopic surgery (> 45 min) Malignancy Confined to bed (> 72 hours) Immobilizing plaster cast Central venous access Age >= 75 History of VTE Family history of VTE Factor V Leiden Prothrombin [id number] Lupus anticoagulant Anticardiolipin antibodies Elevated serum homocysteine Heparin-induced thrombocytopenia Other congenital or acquired thrombophilia Stroke (< 1 month) Elective arthroplasty Hip, pelvis, or leg fracture Acute spinal cord injury (< 1 month) Prophylaxis Regimen: Total Risk Factor Score Risk Level Prophylaxis Regimen 0-1 Low Early ambulation 2 Moderate Order ONE of the following: *Sequential Compression Device (SCD) *Heparin 5000 units SQ BID 3-4 Higher Order ONE of the following medications: *Heparin 5000 units SQ TID *Enoxaparin/Lovenox 40 mg SQ daily (WT < 150 kg, CrCl > 30 mL/min) *Enoxaparin/Lovenox 30 mg SQ daily (WT < 150 kg, CrCl > 10-29 mL/min) *Enoxaparin/Lovenox 30 mg SQ BID (WT < 150 kg, CrCl > 30 mL/min) AND/OR *Sequential Compression Device (SCD) 5 or more Highest Order ONE of the following medications: *Heparin 5000 units SQ TID (Preferred with Epidurals) *Enoxaparin/Lovenox 40 mg SQ daily (WT < 150 kg, CrCl > 30 mL/min) *Enoxaparin/Lovenox 30 mg SQ daily (WT < 150 kg, CrCl > 10-29 mL/min) *Enoxaparin/Lovenox 30 mg SQ BID (WT < 150 kg, CrCl > 30 mL/min) AND *Sequential Compression Device (SCD) Assessment and Plan - Assessment and Plan 1. Acholic stools/ Jaundice: no biliary obstruction on initial imaging including MRCP. however evidence of non specific hepatitis and small hepatic cysts start basic serology work up and will need to consult GI tomorrow 2. Transaminitis: see above 3. YANG recheck after IVF, no baseline established 4. DM: monitor, SSI 5. GERD PPI 6. BPH flomax 7. Asthma home inhalers with this and liver disease, consider A1AT? H&P: Quality - VTE Deep Vein Thrombosis/Pulmonary Embolism Present on Admission: No
[2018-04-09] MEDS: Sod Chloride 0.9% Inj 1,000 ML IV.CONT SCH ×3 (03:10→22:02)
[2018-04-09 08:22] LABS: Hematocrit 40.4 % (39.0-51.0); Mean Corpuscular HGB Conc 34.7 % (32.0-36.0); Mean Corpuscular Volume 89.3 fL (80.0-100.0); Mean Platelet Volume 9.3 fL (7.0-11.0); Platelet Count 220 th/mm3 (150-450); Red Blood Count 4.53 mil/mm3 (4.50-5.90); Red Cell Distribution Width 15.8 % (11.6-17.2); White Blood Count 7.9 th/mm3 (4.0-11.0)
[2018-04-09 08:27] LABS: INR 1.2 Ratio; Prothrombin Time 12.2 sec (9.8-11.6)
[2018-04-09] MEDS: predniSONE 20 MG Tablet PO SCH ×2 (08:27→21:27)
[2018-04-09] MEDS: Senna/Docusate Sodium 8.6/50 MG Tablet PO SCH ×2 (08:27→21:27)
[2018-04-09 08:46] LABS: Anion Gap 10 meq/L (5-15); Aspartate Aminotransferase 301 U/L (15-37); Blood Urea Nitrogen 19 mg/dL (7-18); Calcium 8.4 mg/dL (8.5-10.1); Carbon Dioxide 20.6 meq/L (21.0-32.0); Chloride 104 meq/L (98-107); Glomerular Filtration Rate 52 mL/min (>89); Glucose,Random 159 mg/dL (74-106); Lipase 105 U/L (73-393); Sodium 135 meq/L (136-145)
[2018-04-09 08:49] LABS: Alanine Aminotransferase 447 U/L (12-78); Alkaline Phosphatase 618 U/L (45-117); Total Protein 6.9 g/dL (6.4-8.2)
[2018-04-09 09:12] LABS: Reticulocyte Percent 0.9 % (0.4-3.0)
[2018-04-09] MEDS ORDERED: SINCALIDE IV.SIG ONE (09:23)
[2018-04-09] MEDS ORDERED: SODIUM CHLOR 0.9% IV.SIG ONE (09:23)
[2018-04-09 09:29] LABS: Lactate Dehydrogenase 364 U/L (87-241)
[2018-04-09 09:32] LABS: Lymphocytes 21 % (9-44); Monocytes 7 % (0-8)
[2018-04-09 09:34] LABS: Target Cells 1+
[2018-04-09 09:35] LABS: Platelet Estimate Normal (Normal); Platelet Morphology Normal (Normal)
[2018-04-09 09:47] LABS: Haptoglobin 167 mg/dL (30-200)
--- NOTE | 2018-04-09 11:55 | P.PNFP ---
Subjective Interval history: Patient reports feeling about the same. He denies any significant changes. We discussed his workup and plan of care so far. Patient expressed understanding and consent. <Gab CoreyRanjitAbimael - 04/09/18 11:55> Results - Labs Result diagrams: 04/09/18 07:00 04/09/18 07:00 <JaredRanjit Jasbir - 04/09/18 17:02> Abnormal lab results 04/08/18 04/09/18 04/09/18 Range/Units 11:25 07:00 07:00 Band Neuts % (Manual) 8 H (0-6) % Target Cells 1+ H (None) PT 12.2 H (9.8-11.6) sec Sodium (136-145) meq/L Carbon Dioxide (21.0-32.0) meq/L BUN (7-18) mg/dL Creatinine (0.60-1.30) mg/dL Estimated GFR (>89) mL/min Random Glucose (74-106) mg/dL Calcium (8.5-10.1) mg/dL TIBC 237 L (250-450) mcg/dL % Saturation (20-50) % Ferritin 1011 H (26-388) ng/mL Total Bilirubin 7.0 H (0.2-1.0) mg/dL Direct Bilirubin 5.2 H (0.0-0.2) mg/dL Indirect Bilirubin 1.8 H (0.0-0.8) mg/dL GGT 808 H (15-85) U/L AST (15-37) U/L ALT (12-78) U/L Alkaline Phosphatase (45-117) U/L Lactate Dehydrogenase (87-241) U/L Albumin (3.4-5.0) g/dL 04/09/18 04/09/18 04/09/18 Range/Units 07:00 07:00 07:00 Band Neuts % (Manual) (0-6) % Target Cells (None) PT (9.8-11.6) sec Sodium 135 L (136-145) meq/L Carbon Dioxide 20.6 L (21.0-32.0) meq/L BUN 19 H (7-18) mg/dL Creatinine 1.35 H (0.60-1.30) mg/dL Estimated GFR 52 L (>89) mL/min Random Glucose 159 H (74-106) mg/dL Calcium 8.4 L (8.5-10.1) mg/dL TIBC 235 L (250-450) mcg/dL % Saturation 50.2 H (20-50) % Ferritin 1198 H (26-388) ng/mL Total Bilirubin 7.8 H (0.2-1.0) mg/dL Direct Bilirubin 6.3 H (0.0-0.2) mg/dL Indirect Bilirubin 1.5 H (0.0-0.8) mg/dL GGT (15-85) U/L AST 301 H (15-37) U/L ALT 447 H (12-78) U/L Alkaline Phosphatase 618 H (45-117) U/L Lactate Dehydrogenase 364 H (87-241) U/L Albumin 3.0 L (3.4-5.0) g/dL Short CBC 04/09/18 Range/Units 07:00 WBC 7.9 (4.0-11.0) th/mm3 Hgb 14.0 (13.0-17.0) gm/dL Hct 40.4 (39.0-51.0) % Plt Count 220 (150-450) th/mm3 BMP 04/09/18 07:00 Sodium 135 L Potassium 4.0 Chloride 104 Carbon Dioxide 20.6 L BUN 19 H Creatinine 1.35 H Calcium 8.4 L Liver Function 04/08/18 04/09/18 Range/Units 11:25 07:00 Total Bilirubin 7.0 H 7.8 H (0.2-1.0) mg/dL Direct Bilirubin 5.2 H 6.3 H (0.0-0.2) mg/dL GGT 808 H (15-85) U/L AST 301 H (15-37) U/L ALT 447 H (12-78) U/L Alkaline Phosphatase 618 H (45-117) U/L Albumin 3.0 L (3.4-5.0) g/dL <Ranjit Coleman - 04/09/18 17:02> Abnormal lab results 04/08/18 04/08/18 04/08/18 Range/Units 11:00 11:25 11:25 Band Neuts % (Manual) 10 H (0-6) % Monocytes % (Manual) 13 H (0-8) % Myelocytes % (Man) 1 H (0-0) % Target Cells (None) PT (9.8-11.6) sec Sodium 134 L (136-145) meq/L Carbon Dioxide (21.0-32.0) meq/L BUN (7-18) mg/dL Creatinine 1.46 H (0.60-1.30) mg/dL Estimated GFR 48 L (>89) mL/min Random Glucose 120 H (74-106) mg/dL Lactic Acid (0.4-2.0) mmol/L Calcium 8.4 L (8.5-10.1) mg/dL TIBC (250-450) mcg/dL Ferritin (26-388) ng/mL Total Bilirubin 6.9 H (0.2-1.0) mg/dL Direct Bilirubin (0.0-0.2) mg/dL Indirect Bilirubin (0.0-0.8) mg/dL GGT (15-85) U/L AST 276 H (15-37) U/L ALT 424 H (12-78) U/L Alkaline Phosphatase 540 H (45-117) U/L Lactate Dehydrogenase (87-241) U/L Troponin I Less than 0.02 L (0.02-0.05) ng/mL Albumin 3.1 L (3.4-5.0) g/dL Urine Protein 30 H (Neg-Trace) mg/dL Urine Occult Blood Moderate H (Negative) Urine RBC 4 H (0-3) /hpf Urine Mucus Few H (Occasional) /lpf 04/08/18 04/08/18 04/09/18 Range/Units 11:25 11:49 07:00 Band Neuts % (Manual) 8 H (0-6) % Monocytes % (Manual) (0-8) % Myelocytes % (Man) (0-0) % Target Cells 1+ H (None) PT (9.8-11.6) sec Sodium (136-145) meq/L Carbon Dioxide (21.0-32.0) meq/L BUN (7-18) mg/dL Creatinine (0.60-1.30) mg/dL Estimated GFR (>89) mL/min Random Glucose (74-106) mg/dL Lactic Acid Less than 0.4 L (0.4-2.0) mmol/L Calcium (8.5-10.1) mg/dL TIBC 237 L (250-450) mcg/dL Ferritin 1011 H (26-388) ng/mL Total Bilirubin 7.0 H (0.2-1.0) mg/dL Direct Bilirubin 5.2 H (0.0-0.2) mg/dL Indirect Bilirubin 1.8 H (0.0-0.8) mg/dL GGT 808 H (15-85) U/L AST (15-37) U/L ALT (12-78) U/L Alkaline Phosphatase (45-117) U/L Lactate Dehydrogenase (87-241) U/L Troponin I (0.02-0.05) ng/mL Albumin (3.4-5.0) g/dL Urine Protein (Neg-Trace) mg/dL Urine Occult Blood (Negative) Urine RBC (0-3) /hpf Urine Mucus (Occasional) /lpf 04/09/18 04/09/18 04/09/18 Range/Units 07:00 07:00 07:00 Band Neuts % (Manual) (0-6) % Monocytes % (Manual) (0-8) % Myelocytes % (Man) (0-0) % Target Cells (None) PT 12.2 H (9.8-11.6) sec Sodium 135 L (136-145) meq/L Carbon Dioxide 20.6 L (21.0-32.0) meq/L BUN 19 H (7-18) mg/dL Creatinine 1.35 H (0.60-1.30) mg/dL Estimated GFR 52 L (>89) mL/min Random Glucose 159 H (74-106) mg/dL Lactic Acid (0.4-2.0) mmol/L Calcium 8.4 L (8.5-10.1) mg/dL TIBC (250-450) mcg/dL Ferritin (26-388) ng/mL Total Bilirubin 7.8 H (0.2-1.0) mg/dL Direct Bilirubin 6.3 H (0.0-0.2) mg/dL Indirect Bilirubin 1.5 H (0.0-0.8) mg/dL GGT (15-85) U/L AST 301 H (15-37) U/L ALT 447 H (12-78) U/L Alkaline Phosphatase 618 H (45-117) U/L Lactate Dehydrogenase 364 H (87-241) U/L Troponin I (0.02-0.05) ng/mL Albumin 3.0 L (3.4-5.0) g/dL Urine Protein (Neg-Trace) mg/dL Urine Occult Blood (Negative) Urine RBC (0-3) /hpf Urine Mucus (Occasional) /lpf Short CBC 04/08/18 04/09/18 Range/Units 11:25 07:00 WBC 8.0 7.9 (4.0-11.0) th/mm3 Hgb 15.2 14.0 (13.0-17.0) gm/dL Hct 43.6 40.4 (39.0-51.0) % Plt Count 213 220 (150-450) th/mm3 BMP 04/08/18 04/09/18 11:25 07:00 Sodium 134 L 135 L Potassium 3.9 4.0 Chloride 103 104 Carbon Dioxide 22.3 20.6 L BUN 14 19 H Creatinine 1.46 H 1.35 H Calcium 8.4 L 8.4 L Cardiac Enzymes 04/08/18 Range/Units 11:25 Troponin I Less than 0.02 L (0.02-0.05) ng/mL Liver Function 04/08/18 04/08/18 04/09/18 Range/Units 11:25 11:25 07:00 Total Bilirubin 6.9 H 7.0 H 7.8 H (0.2-1.0) mg/dL Direct Bilirubin 5.2 H 6.3 H (0.0-0.2) mg/dL GGT 808 H (15-85) U/L AST 276 H 301 H (15-37) U/L ALT 424 H 447 H (12-78) U/L Alkaline Phosphatase 540 H 618 H (45-117) U/L Albumin 3.1 L 3.0 L (3.4-5.0) g/dL Urine 04/08/18 Range/Units 11:00 Urine Color Francine (Yellw/Straw) Urine Clarity Clear (Clear) Urine pH 6.0 (5.0-8.5) Ur Specific [place] 1.005 (1.002-1.035) Urine Protein 30 H (Neg-Trace) mg/dL Urine Glucose (UA) Negative (Negative) mg/dL <Gab Ranjit Nicole - 04/09/18 11:55> - Imaging Impressions Cholangiopancreatography MRI 04/08/18 00:00 CONCLUSION: 1. Mild hepatosplenomegaly. 2. Fatty liver. 3. Several tiny subcentimeter hepatic cysts. 4. No biliary ductal dilatation. 5. Degenerative changes and scoliosis of thoracolumbar spine. Hepatobiliary Scan Nuclear Medicine 04/09/18 00:00 CONCLUSION: 1. Suspected poor hepatic function with not only slow uptake of radiotracer from the blood stream but no activity identified in the common bile duct or small bowel. No active disease in the gallbladder which is markedly decompressed. I reviewed the recent CT scan without evidence of biliary dilatation, pancreatic mass, or any other cause for common bile duct obstruction. <JaredRanjit Jasbir - 04/09/18 17:02> Impressions Cholangiopancreatography MRI 04/08/18 00:00 CONCLUSION: 1. Mild hepatosplenomegaly. 2. Fatty liver. 3. Several tiny subcentimeter hepatic cysts. 4. No biliary ductal dilatation. 5. Degenerative changes and scoliosis of thoracolumbar spine. Abdomen/Pelvis CT 04/08/18 11:22 CONCLUSION: 1. Unremarkable CT scan of the abdomen and pelvis for patient's age. Chest X-Ray 04/08/18 11:22 CONCLUSION: Mild left ventricular hypertrophy otherwise negative Gallbladder Ultrasound 04/08/18 12:29 CONCLUSION: 1. Poorly visualized gallbladder. HIDA scan may help if cholecystitis is suspected. <Gab NicoleRanjit - 04/09/18 11:55> Physical Exam Vital signs: Vital Signs 04/08/18 17:18 04/08/18 20:00 04/08/18 20:31 Temperature 98 F 98.0 F Pulse Rate 78 63 87 Respiratory Rate 17 18 18 Blood Pressure 151/87 H 142/67 H Pulse Oximetry 95 94 L 95 04/09/18 00:00 04/09/18 01:05 04/09/18 04:54 Temperature 98.0 F Pulse Rate 72 74 88 Respiratory Rate 20 18 17 Blood Pressure 125/70 Pulse Oximetry 94 L 04/09/18 07:45 04/09/18 07:46 04/09/18 08:00 Temperature 97.4 F L Pulse Rate 66 100 H Respiratory Rate 18 19 Blood Pressure 123/76 Pulse Oximetry 94 L 94 L 94 L 04/09/18 11:00 04/09/18 12:00 Temperature 96.5 F L Pulse Rate 87 87 Respiratory Rate 18 18 Blood Pressure 136/66 Pulse Oximetry 94 L Intake & Output 04/08/18 04/09/18 04/09/18 18:59 06:59 18:59 Intake Total 1000 / 1000 1580 / 1580 Balance 1000 / 1000 1580 / 1580 Weight 101 kg 101 kg Intake: IV 1000 / 1000 1000 / 1000 NS Inj 1,000 ML @ 145 mls/hr IV 1000 / 1000 .CONT .Q6H54M FOR[facility]LY [facility], [facility] Rx#:[id number] NS Inj 1,000 ML @ Wide Open IV. 1000 / 1000 SIG BOLUS ONE Rx#:[id number] Oral 580 / 580 Other: # Voids 3 Weight On Admission 101 kg <Ranjit Coleman - 04/09/18 17:02> Vital Signs 04/08/18 12:01 04/08/18 13:30 04/08/18 17:18 Temperature 98 F Pulse Rate 68 68 78 Respiratory Rate 22 19 17 Blood Pressure 136/78 151/87 H Pulse Oximetry 96 95 04/08/18 20:00 04/08/18 20:31 04/09/18 00:00 Temperature 98.0 F 98.0 F Pulse Rate 63 87 72 Respiratory Rate 18 18 20 Blood Pressure 142/67 H 125/70 Pulse Oximetry 94 L 95 94 L 04/09/18 01:05 04/09/18 04:54 04/09/18 07:45 Temperature Pulse Rate 74 88 66 Respiratory Rate 18 17 18 Blood Pressure Pulse Oximetry 94 L 04/09/18 07:46 04/09/18 08:00 04/09/18 11:00 Temperature 97.4 F L Pulse Rate 100 H 87 Respiratory Rate 19 18 Blood Pressure 123/76 Pulse Oximetry 94 L 94 L Intake & Output 04/08/18 04/09/18 04/09/18 18:59 06:59 18:59 Intake Total 1000 / 1000 1580 / 1580 Balance 1000 / 1000 1580 / 1580 Weight 101 kg 101 kg Intake: IV 1000 / 1000 1000 / 1000 NS Inj 1,000 ML @ 145 mls/hr IV 1000 / 1000 .CONT .Q6H54M [facility] Rx#:[id number] NS Inj 1,000 ML @ Wide Open IV. 1000 / 1000 SIG BOLUS ONE Rx#:[id number] Oral 580 / 580 Other: # Voids 3 Weight On Admission 101 kg <Ranjit Jenkins - 04/09/18 11:55> Narrative: GENERAL: Well-appearing in no distress. SKIN: Focused skin assessment warm/dry. HEAD: Atraumatic. Normocephalic. EYES: Pupils equal and round. + scleral and sublingual icterus. No injection or drainage. ENT: No nasal bleeding or discharge. Mucous membranes pink and moist. Tongue is midline. No uvula deviation. NECK: Trachea midline. No JVD. CARDIOVASCULAR: Regular rate and rhythm. No murmur appreciated. RESPIRATORY: No accessory muscle use. Clear to auscultation. Breath sounds equal bilaterally. GASTROINTESTINAL: Abdomen soft, nontender to palpation of the abdomen, nondistended. Hepatic and splenic margins not palpable. Negative Osei sign. MUSCULOSKELETAL: No obvious deformities. No clubbing. No cyanosis. No edema. Full range of motion of the upper and lower extremities bilaterally. 2+ pulses bilaterally. NEUROLOGICAL: Awake and alert. No obvious cranial nerve deficits. Motor grossly within normal limits. Normal speech. PSYCHIATRIC: Appropriate mood and affect; insight and judgment normal. <Ranjit Jenkins - 04/09/18 14:10> Assessment and Plan - Assessment (1) Hyperbilirubinemia Code(s): E80.6 - Other disorders of bilirubin metabolism Status: Acute (2) Transaminitis Code(s): R74.0 - Nonspecific elevation of levels of transaminase and lactic acid dehydrogenase [LDH] Status: Acute (3) YANG (acute kidney injury) Code(s): N17.9 - Acute kidney failure, unspecified Status: Acute (4) Asthma Code(s): J45.909 - Unspecified asthma, uncomplicated Status: Acute (5) BPH (benign prostatic hyperplasia) Code(s): N40.0 - Benign prostatic hyperplasia without lower urinary tract symptoms Status: Acute (6) GERD (gastroesophageal reflux disease) Code(s): K21.9 - Gastro-esophageal reflux disease without esophagitis Status: Acute <Ranijt Coleman - 04/09/18 17:02> (1) Hyperbilirubinemia Code(s): E80.6 - Other disorders of bilirubin metabolism Status: Acute Plan: Patient is elevation of both conjugated and unconjugated bilirubin, but conjugated is elevated over unconjugated. Differential diagnosis includes biliary obstruction, intrahepatic cholestasis, hepatocellular injury, hepatocellular defects of clavicular excretion or sinusoidal reuptake, others. -Total bilirubin: 6.9, 7.0, 7.8, conjugated/direct bilirubin: 5.2, 6.3, unconjugated/indirect bilirubin: 1.8, 1.5, alkaline phosphatase: 540, 618, aminotransferases, AST: 276, 301, ALT: 424, 447, LDH: 364, PT: 12.2, INR: 1.2, aPTT: 28.5, and albumin: 3.1, 3.0 -Right upper quadrant ultrasound showed: 1. Poorly visualized gallbladder. HIDA scan may help if cholecystitis is suspected. -ERCP showed 1. Mild hepatosplenomegaly. 2. Fatty liver. 3. Several tiny subcentimeter hepatic cysts. 4. No biliary ductal dilatation. 5. Degenerative changes and scoliosis of thoracolumbar spine. -Antimitochondrial antibody pending -considering HIDA -GI consulted (2) Transaminitis Code(s): R74.0 - Nonspecific elevation of levels of transaminase and lactic acid dehydrogenase [LDH] Status: Acute Plan: -Trend LFTs -GGT 808 -Consider liver biopsy -Hepatitis panel ordered and was negative -Total bilirubin: 6.9, 7.0, 7.8, conjugated/direct bilirubin: 5.2, 6.3, unconjugated/indirect bilirubin: 1.8, 1.5, alkaline phosphatase: 540, 618, aminotransferases, AST: 276, 301, ALT: 424, 447, LDH: 364, PT: 12.2, INR: 1.2, aPTT: 28.5, and albumin: 3.1, 3.0 -Right upper quadrant ultrasound showed: 1. Poorly visualized gallbladder. HIDA scan may help if cholecystitis is suspected. -ERCP showed 1. Mild hepatosplenomegaly. 2. Fatty liver. 3. Several tiny subcentimeter hepatic cysts. 4. No biliary ductal dilatation. 5. Degenerative changes and scoliosis of thoracolumbar spine. -Antimitochondrial antibody pending -considering HIDA -GI consulted -Ferritin of 1011, iron 70, TIBC 237, percent saturation 29.6 -Hereditary hemochromatosis DNA ordered (3) YANG (acute kidney injury) Code(s): N17.9 - Acute kidney failure, unspecified Status: Acute Plan: Unclear if YANG or CKD. Likely prerenal YANG based on the history. -Continue IV fluid hydration -Continue to monitor (4) Asthma Code(s): J45.909 - Unspecified asthma, uncomplicated Status: Acute Plan: Patient required Solu-Medrol and breathing treatments in the emergency department. -Continue prednisone 20 mg p.o. bid -Continue to alternate albuterol nebs and duo nebs -Continue home medication montelukast (5) BPH (benign prostatic hyperplasia) Code(s): N40.0 - Benign prostatic hyperplasia without lower urinary tract symptoms Status: Acute Plan: -Continue home medication of tamsulosin (6) GERD (gastroesophageal reflux disease) Code(s): K21.9 - Gastro-esophageal reflux disease without esophagitis Status: Acute Plan: -Continue home medication of omeprazole with pharmacy replacement <Gab NicoleAbimael - 04/09/18 14:14> - Assessment and Plan Patient is a 72 yo M with hx of asthma, borderline DM, GERD, and BPH who presents with 2 weeks of asthma exacerbation and almost a week of abdominal pain after eating, white stools, lack of appetite with associate fever and chills, found to have hyperbilirubinemia, transaminitis, YANG, on top of his asthma exacerbation. Plan to admit patient to workup this problem with extensive labs and imaging while treating his asthma exacerbation with steroids and breathing treatments. FEN/ppx: Fluids: Maintenance IV fluids Electrolytes: Monitor and replete Nutrition: Regular basic diet as tolerated DVT prophylaxis: Lovenox 40 mg subcu daily GI prophylaxis: Continue patient home medication of PPI <Ranjit Jenkins - 04/09/18 14:20> - Attending Attestation The exam, history, and the medical decision-making described in the above note were completed with the assistance of the resident physician. I reviewed and agree with the findings presented. I attest that I had a [id number] encounter with the patient on the same day, and personally performed and documented my assessment and findings in the medical record. feeling better today, no new stool to look at. jaundice improving today. no pain. HIDA showing significant hepatic dysfunction. no clear etiology but much serologic work up pending at this point still. GI consulted to help. Thank you. <Ranjit Coleman - 04/09/18 17:02>
[2018-04-09 13:50] LABS: % Iron Saturation 50.2 % (20-50)
[2018-04-09 13:53] LABS: Alpha Fetoprotein Tumor Marker 1.8 ng/mL (0.5-8.0)
--- NOTE | 2018-04-09 15:50 | NM ---
EXAM DATE: 04/09/2018 3:45 PM EST AGE/SEX: 72 years / Male INDICATIONS: Right upper quadrant pain. CLINICAL DATA: This is the patient's initial encounter. Patient reports that signs and symptoms have been present for 3 days and indicates a pain score of 4/10. MEDICAL/SURGICAL HISTORY: Diabetes mellitus type II. Gastroesophageal reflux disease. Fusion, lumbar. COMPARISON: [facility] [place], CT ABDOMEN & PELVIS W CONTRAST, 04/08/2018. . DOSE: 4.2 mCi Tc-99m mebrofenin i.v. TECHNIQUE: Following the intravenous administration of radiotracer, dynamic sequential images were pe rformed with continuous acquisition. Time-activity curves were generated. FINDINGS: Hepatic Kinetics: There is poor uptake of radiotracer in the liver. No focal defects are seen. The re is decreased rate of washout from the hepatic parenchyma. Biliary Clearance: No activity is identified in the common bile duct, gallbladder or small bowel. Gallbladder: The gallbladder was not identified. The gallbladder was decompressed on the recent CT sc an Biliary-Enteric Reflux: No small bowel activity is identified. CONCLUSION: 1. Suspected poor hepatic function with not only slow uptake of radiotracer from the blood stream bu t no activity identified in the common bile duct or small bowel. No active disease in the gallbladder which is markedly decompressed. I reviewed the recent CT scan without evidence of biliary dilatation , pancreatic mass, or any other cause for common bile duct obstruction. Electronically signed by: Antonio Garcia MD Board Certified Radiologist 04/09/2018 3:48 PM EST
[2018-04-09] MEDS: Enoxaparin Inj 40 MG/0.4 ML Syringe SQ SCH (17:32)
[2018-04-09] MEDS: Montelukast 10 MG Tablet PO SCH (17:32)
--- NOTE | 2018-04-09 19:51 | ECG ---
Date Performed: 04/08/2018 Time Performed: 11:36:25 PTAGE: 72 years EKG: Sinus rhythm MARKED LEFT AXIS DEVIATION RIGHT BUNDLE BRANCH BLOCK POSSIBLE SEPTAL MYOCARDIAL INFARCTION ABNORMAL ECG NO PREVIOUS TRACING DOCTOR: Royer Quigley Interpretating Date/Time 04/09/2018 19:48:57
--- NOTE | 2018-04-09 20:33 | P.CONGI ---
History of Present Illness Consult date: 04/09/18 Consult reason: Possible biliary obstruction Chief complaint: Acute liver injury, cholecystitis vs stone History of Present Illness: Patient seen earlier today. This patient is a 72-year-old male with past medical history significant for asthma, GERD, diabetes and BPH. Surgical history significant for shoulder history, back surgery, tonsillectomy and wrist surgery. Patient presented to [facility] with report of 10-day history of right upper quadrant sharp pain that radiated to epigastric area with nausea. Patient also endorses poor appetite. Upon arrival, patient was noted to have elevated transaminases. Patient reports subjective fevers denies chills. Our service has been consulted to evaluate patient for possible biliary obstruction. Review of Systems All other systems reviewed negative except as stated in HPI PMF - History History Provided By: Patient, Family Member - Medical History Medical History: Medical History (Last Reviewed 04/08/18 @ 15:13 by Ranjit Coleman MD) Diabetes GERD (gastroesophageal reflux disease) GERD (gastroesophageal reflux disease) Pneumonia Prostate enlargement - Surgical History Surgical History: Surgical History (Last Reviewed 04/08/18 @ 15:13 by Ranjit Coleman MD) H/O shoulder surgery History of back surgery Hx of tonsillectomy S/P wrist surgery - Tobacco History Second Hand Smoke Exposure: No Tobacco Use In Past 30 Days: No Smoking Status: Current every day smoker Tobacco Type: Cigarettes - Alcohol History How Often Do You Have a Drink Containing Alcohol: Unable to Obtain - Substance Use History Substance History: No History of Abuse - Travel History Recent Travel in the [place] Within the Last 8 Weeks: Yes Recent Travel Out of the Country Within the Last 8 Weeks: No - Immunization History Tetanus Immunization: <5 Years Hx Influenza Vaccine This Season: No Medications and Allergies Active Medications: Active Medications Al Hydroxide/Mg Hydroxide (Milk Of Magnkd Liq) 30 ml PO Q12H PRN PRN Reason: Mild Constipation Albuterol (Albuterol Neb (Radha)) 2.5 mg NEB Q8HR NEB RADHA Last Admin: 04/09/18 15:17 Dose: Not Given Albuterol (Duoneb Neb (Radha)) 1 ampul NEB Q8HR ALT NEB RADHA Last Admin: 04/09/18 11:00 Dose: 1 ampul Bisacodyl (Dulcolax Supp) 10 mg RECTAL DAILY PRN PRN Reason: SEVERE CONSITIPATION Calcium Carbonate (Tums Chew) 500 mg CHEW BID [facility] Enoxaparin Sodium (Lovenox Inj) 40 mg SQ Q24H [facility] Last Admin: 04/09/18 17:32 Dose: 40 mg Sodium Chloride (Ns Inj) 1,000 mls @ 145 mls/hr IV.CONT .Q6H54M [facility] Last Admin: 04/09/18 03:10 Dose: 145 mls/hr Lactulose (Lactulose Liq) 30 ml PO DAILY PRN PRN Reason: SEVERE CONSITIPATION Latanoprost (Xalatan 0.005% Opth Drops) 1 drop EACH [facility] Montelukast Sodium (Singulair) 10 mg PO DAILY@1800 [facility] Last Admin: 04/09/18 17:32 Dose: Not Given Morphine Sulfate (Morphine Inj) 4 mg IV.PUSH Q3H PRN PRN Reason: BREAKTHROUGH PAIN Naloxone HCl (Narcan Inj) 0.4 mg IV.PUSH UNSCH PRN PRN Reason: SEE LABEL COMMENTS Pantoprazole Sodium (Protonix) 40 mg PO DAILY [facility] Last Admin: 04/09/18 08:27 Dose: 40 mg Prednisone (Deltasone) 20 mg PO BID [facility] Last Admin: 04/09/18 08:27 Dose: 20 mg Senna/Docusate Sodium (Марина-Colace) 1 tab PO BID [facility] Last Admin: 04/09/18 08:27 Dose: 1 tab Sennosides (Senokot) 17.2 mg PO Q12H PRN PRN Reason: Moderate Constipation Sodium Chloride (Ns Flush) 2 ml IV.FLUSH BID [facility] Last Admin: 04/09/18 08:34 Dose: 2 ml Sodium Chloride (Ns Flush) 2 ml IV.FLUSH PRN PRN PRN Reason: FLUSH AFTER USING IV ACCESS Tamsulosin HCl (Flomax) 0.4 mg PO DAILY [facility] Last Admin: 04/09/18 08:27 Dose: 0.4 mg Tramadol HCl (Ultram) 50 mg PO Q4H PRN PRN Reason: PAIN SCALE 3 TO 5 Tramadol HCl (Ultram) 100 mg PO Q4H PRN PRN Reason: PAIN SCALE 6 TO 10 Allergies Allergy/AdvReac Type Severity Reaction Status Date / Time No Known Allergies Allergy Verified 04/08/18 10:44 Home Medications Medication Instructions Recorded Confirmed Type albuterol sulfate 2 puff INHALATION Q4-6H PRN 04/08/18 04/08/18 History ipratropium-albuterol 3 ml INHALATION QID PRN 04/08/18 04/08/18 History montelukast 10 mg PO QPM 04/08/18 04/08/18 History omeprazole 40 mg PO DAILY 04/08/18 04/08/18 History tamsulosin 0.4 mg PO DAILY 04/08/18 04/08/18 History Exam Vital signs: Vital Signs 04/08/18 20:31 04/09/18 00:00 04/09/18 01:05 Temperature 98.0 F Pulse Rate 87 72 74 Respiratory Rate 18 20 18 Blood Pressure 125/70 Pulse Oximetry 95 94 L 04/09/18 04:54 04/09/18 07:45 04/09/18 07:46 Temperature Pulse Rate 88 66 Respiratory Rate 17 18 Blood Pressure Pulse Oximetry 94 L 94 L 04/09/18 08:00 04/09/18 11:00 04/09/18 12:00 Temperature 97.4 F L 96.5 F L Pulse Rate 100 H 87 87 Respiratory Rate 19 18 18 Blood Pressure 123/76 136/66 Pulse Oximetry 94 L 94 L Intake & Output 04/09/18 04/09/18 04/10/18 06:59 18:59 06:59 Intake Total 1580 / 1580 475 / 475 Balance 1580 / 1580 475 / 475 Weight 101 kg Intake: IV 1000 / 1000 NS Inj 1,000 ML @ 145 mls/hr IV 1000 / 1000 .CONT .Q6H54M [facility] Rx#:[id number] Oral 580 / 580 475 / 475 Other: # Voids 3 4 - Constitutional no acute distress, cooperative - Routine HEENT Exam Head: Present: normocephalic - Routine Neck Exam Present: supple - Routine Respiratory Exam Present: accessory muscle use, CTA bilaterally - Routine Cardiovascular Exam Present: RRR - Routine Abdominal Exam Present: soft, normoactive bowel sounds. Absent: tenderness, distended - Routine Extremities Exam Absent: edema - Routine Skin Exam Present: dry, warm - Routine Neurological Exam Present: alert, oriented X3 Results - Labs CBC & Chem 7: 04/09/18 07:00 04/09/18 07:00 Labs: Laboratory Results - last 24 hr 04/08/18 04/09/18 04/09/18 22:15 07:00 07:00 WBC 7.9 RBC 4.53 Hgb 14.0 Hct 40.4 MCV 89.3 MCH 31.0 MCHC 34.7 RDW 15.8 Plt Count 220 MPV 9.3 Prelim Diff (Auto) Manual diff required WBC Differential Manual diff final Seg Neuts % (Manual) 63 Band Neuts % (Manual) 8 H Lymphocytes % (Manual) 21 Monocytes % (Manual) 7 Basophils % (Manual) 1 Abs Neuts (Manual) 5.6 Differential Comment . Platelet Estimate Normal Platelet Morphology Normal Target Cells 1+ H Smear Path Review Retic Count Absolute Retic Haptoglobin PT 12.2 H INR 1.2 APTT 28.5 Sodium Potassium Chloride Carbon Dioxide Anion Gap BUN Creatinine Estimated GFR Random Glucose Calcium Iron TIBC % Saturation Ferritin Total Bilirubin Direct Bilirubin Indirect Bilirubin AST ALT Alkaline Phosphatase Lactate Dehydrogenase Total Protein Albumin Lipase Tumor Marker AFP 04/09/18 04/09/18 04/09/18 07:00 07:00 07:00 WBC RBC Hgb Hct MCV MCH MCHC RDW Plt Count MPV Prelim Diff (Auto) WBC Differential Seg Neuts % (Manual) Band Neuts % (Manual) Lymphocytes % (Manual) Monocytes % (Manual) Basophils % (Manual) Abs Neuts (Manual) Differential Comment Platelet Estimate Platelet Morphology Target Cells Smear Path Review Retic Count 0.9 Absolute Retic 42.0 Haptoglobin 167 PT INR APTT Sodium 135 L Potassium 4.0 Chloride 104 Carbon Dioxide 20.6 L Anion Gap 10 BUN 19 H Creatinine 1.35 H Estimated GFR 52 L Random Glucose 159 H Calcium 8.4 L Iron TIBC % Saturation Ferritin Total Bilirubin 7.8 H Direct Bilirubin 6.3 H Indirect Bilirubin 1.5 H AST 301 H ALT 447 H Alkaline Phosphatase 618 H Lactate Dehydrogenase 364 H Total Protein 6.9 Albumin 3.0 L Lipase 105 Tumor Marker AFP 04/09/18 04/09/18 07:00 07:00 WBC RBC Hgb Hct MCV MCH MCHC RDW Plt Count MPV Prelim Diff (Auto) WBC Differential Seg Neuts % (Manual) Band Neuts % (Manual) Lymphocytes % (Manual) Monocytes % (Manual) Basophils % (Manual) Abs Neuts (Manual) Differential Comment Platelet Estimate Platelet Morphology Target Cells Smear Path Review Retic Count Absolute Retic Haptoglobin PT INR APTT Sodium Potassium Chloride Carbon Dioxide Anion Gap BUN Creatinine Estimated GFR Random Glucose Calcium Iron 118 TIBC 235 L % Saturation 50.2 H Ferritin 1198 H Total Bilirubin Direct Bilirubin Indirect Bilirubin AST ALT Alkaline Phosphatase Lactate Dehydrogenase Total Protein Albumin Lipase Tumor Marker AFP 1.8 - Imaging Impressions Hepatobiliary Scan Nuclear Medicine 04/09/18 00:00 CONCLUSION: 1. Suspected poor hepatic function with not only slow uptake of radiotracer from the blood stream but no activity identified in the common bile duct or small bowel. No active disease in the gallbladder which is markedly decompressed. I reviewed the recent CT scan without evidence of biliary dilatation, pancreatic mass, or any other cause for common bile duct obstruction. Assessment and Plan (1) Biliary obstruction Status: Acute Code(s): K83.1 - Obstruction of bile duct (2) Hyperbilirubinemia Status: Acute Code(s): E80.6 - Other disorders of bilirubin metabolism (3) Transaminitis Status: Acute Code(s): R74.0 - Nonspecific elevation of levels of transaminase and lactic acid dehydrogenase [LDH] - Plan Patient seen earlier today. This patient is a 72-year-old male with past medical history significant for asthma, GERD, diabetes and BPH. Surgical history significant for shoulder history, back surgery, tonsillectomy and wrist surgery. Patient presented to [facility] with report of 10-day history of right upper quadrant sharp pain that radiated to epigastric area with nausea. Patient also endorses poor appetite. Upon arrival, patient was noted to have elevated transaminases. Patient reports subjective fevers denies chills. Our service has been consulted to evaluate patient for possible biliary obstruction. Transaminitis Hyperbilirubinemia Jaundice 04/09/2018 HIDA scan:. Suspected poor hepatic function with not only slow uptake of radiotracer from the blood stream but no activity identified in the common bile duct or small bowel. No active disease in the gallbladder which is markedly decompressed. I reviewed the recent CT scan without evidence of biliary dilatation, pancreatic mass, or any other cause for common bile duct obstruction. 04/08/2018 gallbladder ultrasound:. Poorly visualized gallbladder. HIDA scan may help if cholecystitis is suspected. 04/08/2018 MRCP: Mild hepatosplenomegaly. Fatty liver. Several tiny subcentimeter hepatic cysts. No biliary ductal dilatation. Degenerative changes and scoliosis of thoracolumbar spine. WBC 7.9 hemoglobin 14 hematocrit 40 platelet count 220 INR 1.2 Total bilirubin 7.8 AST 301 ALT 447 alk phos 618 GGT 808 Hepatitis panel nonreactive Plan Regular diet Liver immunology pending HFE pending Avoid hepatotoxins Supportive care PPI Analgesics and antiemetics as per attending Further recommendations to follow This patient has been seen by myself and Dr. Laird and this note is written on his behalf - Attending Attestation Dr. Laird
[2018-04-09] MEDS: Latanoprost 0.005% Opth Drops 2.5 ML Bottle EACH EYE SCH (21:27)
[2018-04-10] MEDS: Sod Chloride 0.9% Inj 1,000 ML IV.CONT SCH ×4 (03:08→23:12)
[2018-04-10 08:08] LABS: Hematocrit 37.6 % (39.0-51.0); Hemoglobin 13.1 gm/dL (13.0-17.0); Mean Corpuscular HGB Conc 34.8 % (32.0-36.0); Mean Corpuscular Hemoglobin 31.6 pg (27.0-34.0); Mean Corpuscular Volume 90.8 fL (80.0-100.0); Mean Platelet Volume 9.4 fL (7.0-11.0); Platelet Count 228 th/mm3 (150-450); Red Blood Count 4.14 mil/mm3 (4.50-5.90); Red Cell Distribution Width 15.9 % (11.6-17.2); White Blood Count 10.2 th/mm3 (4.0-11.0)
[2018-04-10] MEDS: predniSONE 20 MG Tablet PO SCH ×2 (08:17→23:08)
[2018-04-10] MEDS: Senna/Docusate Sodium 8.6/50 MG Tablet PO SCH ×2 (08:17→23:08)
[2018-04-10 08:39] LABS: Albumin 2.8 g/dL (3.4-5.0); Anion Gap 8 meq/L (5-15); Aspartate Aminotransferase 534 U/L (15-37); Blood Urea Nitrogen 21 mg/dL (7-18); Calcium 8.1 mg/dL (8.5-10.1); Carbon Dioxide 22.2 meq/L (21.0-32.0); Chloride 109 meq/L (98-107); Glomerular Filtration Rate 62 mL/min (>89); Glucose,Random 136 mg/dL (74-106); Potassium 4.4 meq/L (3.5-5.1); Sodium 139 meq/L (136-145)
[2018-04-10 08:42] LABS: Alanine Aminotransferase 568 U/L (12-78); Alkaline Phosphatase 556 U/L (45-117); Total Protein 6.1 g/dL (6.4-8.2)
--- NOTE | 2018-04-10 09:15 | P.PNFP ---
Subjective Interval history: Patient complaining of worsening reflux since yesterday afternoon. Patient states that he normally takes his omeprazole in the morning just before breakfast, which she did not get until later in the day yesterday. He notes that the Tums given overnight did hep relieve some of his burning epigastric pain. He also notes that he normally uses Symbicort at home, 2 puffs in the morning 2 puffs in the evening for his asthma. He does not feel significantly short of breath at the moment, but is receiving a breathing treatment. Denies any abdominal pain. Notes that his stools are "creamy white" this morning, which is improved from the chalk white seen prior to admission. He denies headache, nausea, vomiting, chest pain, abdominal pain, leg pain or swelling. Patient would like to discuss the results of the HIDA scan further with GI later today. All questions answered. <Nneka Norman - 04/10/18 09:55> Results - Labs Result diagrams: 04/10/18 06:59 04/10/18 06:59 <Ranjit Coleman - 04/10/18 11:05> Abnormal lab results 04/09/18 04/10/18 04/10/18 Range/Units 07:00 06:59 06:59 RBC 4.14 L (4.50-5.90) mil/mm3 Hct 37.6 L (39.0-51.0) % Chloride 109 H (98-107) meq/L BUN 21 H (7-18) mg/dL Estimated GFR 62 L (>89) mL/min Random Glucose 136 H (74-106) mg/dL Calcium 8.1 L (8.5-10.1) mg/dL TIBC 235 L (250-450) mcg/dL % Saturation 50.2 H (20-50) % Ferritin 1198 H (26-388) ng/mL Total Bilirubin 7.6 H (0.2-1.0) mg/dL AST 534 H (15-37) U/L ALT 568 H (12-78) U/L Alkaline Phosphatase 556 H (45-117) U/L Total Protein 6.1 L D (6.4-8.2) g/dL Albumin 2.8 L (3.4-5.0) g/dL Short CBC 04/10/18 Range/Units 06:59 WBC 10.2 (4.0-11.0) th/mm3 Hgb 13.1 (13.0-17.0) gm/dL Hct 37.6 L (39.0-51.0) % Plt Count 228 (150-450) th/mm3 BMP 04/10/18 06:59 Sodium 139 Potassium 4.4 Chloride 109 H Carbon Dioxide 22.2 BUN 21 H Creatinine 1.16 Calcium 8.1 L Liver Function 04/10/18 Range/Units 06:59 Total Bilirubin 7.6 H (0.2-1.0) mg/dL AST 534 H (15-37) U/L ALT 568 H (12-78) U/L Alkaline Phosphatase 556 H (45-117) U/L Albumin 2.8 L (3.4-5.0) g/dL <Ranjit Coleman - 04/10/18 11:05> Abnormal lab results 04/09/18 04/09/18 04/09/18 Range/Units 07:00 07:00 07:00 RBC (4.50-5.90) mil/mm3 Hct (39.0-51.0) % Band Neuts % (Manual) 8 H (0-6) % Target Cells 1+ H (None) Chloride (98-107) meq/L BUN (7-18) mg/dL Estimated GFR (>89) mL/min Random Glucose (74-106) mg/dL Calcium (8.5-10.1) mg/dL TIBC 235 L (250-450) mcg/dL % Saturation 50.2 H (20-50) % Ferritin 1198 H (26-388) ng/mL Total Bilirubin (0.2-1.0) mg/dL AST (15-37) U/L ALT (12-78) U/L Alkaline Phosphatase (45-117) U/L Lactate Dehydrogenase 364 H (87-241) U/L Total Protein (6.4-8.2) g/dL Albumin (3.4-5.0) g/dL 04/10/18 04/10/18 Range/Units 06:59 06:59 RBC 4.14 L (4.50-5.90) mil/mm3 Hct 37.6 L (39.0-51.0) % Band Neuts % (Manual) (0-6) % Target Cells (None) Chloride 109 H (98-107) meq/L BUN 21 H (7-18) mg/dL Estimated GFR 62 L (>89) mL/min Random Glucose 136 H (74-106) mg/dL Calcium 8.1 L (8.5-10.1) mg/dL TIBC (250-450) mcg/dL % Saturation (20-50) % Ferritin (26-388) ng/mL Total Bilirubin 7.6 H (0.2-1.0) mg/dL AST 534 H (15-37) U/L ALT 568 H (12-78) U/L Alkaline Phosphatase 556 H (45-117) U/L Lactate Dehydrogenase (87-241) U/L Total Protein 6.1 L D (6.4-8.2) g/dL Albumin 2.8 L (3.4-5.0) g/dL Short CBC 04/10/18 Range/Units 06:59 WBC 10.2 (4.0-11.0) th/mm3 Hgb 13.1 (13.0-17.0) gm/dL Hct 37.6 L (39.0-51.0) % Plt Count 228 (150-450) th/mm3 BMP 04/10/18 06:59 Sodium 139 Potassium 4.4 Chloride 109 H Carbon Dioxide 22.2 BUN 21 H Creatinine 1.16 Calcium 8.1 L Liver Function 04/10/18 Range/Units 06:59 Total Bilirubin 7.6 H (0.2-1.0) mg/dL AST 534 H (15-37) U/L ALT 568 H (12-78) U/L Alkaline Phosphatase 556 H (45-117) U/L Albumin 2.8 L (3.4-5.0) g/dL <Nneka Norman - 04/10/18 09:15> - Imaging Impressions Hepatobiliary Scan Nuclear Medicine 04/09/18 00:00 CONCLUSION: 1. Suspected poor hepatic function with not only slow uptake of radiotracer from the blood stream but no activity identified in the common bile duct or small bowel. No active disease in the gallbladder which is markedly decompressed. I reviewed the recent CT scan without evidence of biliary dilatation, pancreatic mass, or any other cause for common bile duct obstruction. <Ranjit Coleman - 04/10/18 11:05> Impressions Hepatobiliary Scan Nuclear Medicine 04/09/18 00:00 CONCLUSION: 1. Suspected poor hepatic function with not only slow uptake of radiotracer from the blood stream but no activity identified in the common bile duct or small bowel. No active disease in the gallbladder which is markedly decompressed. I reviewed the recent CT scan without evidence of biliary dilatation, pancreatic mass, or any other cause for common bile duct obstruction. <Nneka Norman Pearl - 04/10/18 09:15> Physical Exam Vital signs: Vital Signs 04/09/18 12:00 04/09/18 20:00 04/09/18 21:22 Temperature 96.5 F L 97.2 F L Pulse Rate 87 68 89 Respiratory Rate 18 17 16 Blood Pressure 136/66 129/73 Pulse Oximetry 94 L 95 97 04/10/18 00:00 04/10/18 08:00 04/10/18 08:35 Temperature 98.4 F 98.0 F Pulse Rate 77 62 78 Respiratory Rate 17 18 18 Blood Pressure 137/79 142/74 H Pulse Oximetry 94 L 93 L Intake & Output 04/09/18 04/10/18 04/10/18 18:59 06:59 18:59 Intake Total 1475 / 1475 1600 / 1600 Balance 1475 / 1475 1600 / 1600 Weight 101.1 kg Intake: IV 1000 / 1000 1000 / 1000 NS Inj 1,000 ML @ 145 mls/hr IV 1000 / 1000 1000 / 1000 .CONT .Q6H54M [facility] Rx#:[id number] Oral 475 / 475 600 / 600 Other: # Voids 4 2 Date of Last Bowel Movement 04/07/18 <Ranjit Coleman - 04/10/18 11:05> Vital Signs 04/09/18 11:00 04/09/18 12:00 04/09/18 20:00 Temperature 96.5 F L 97.2 F L Pulse Rate 87 87 68 Respiratory Rate 18 18 17 Blood Pressure 136/66 129/73 Pulse Oximetry 94 L 95 04/09/18 21:22 04/10/18 00:00 04/10/18 08:00 Temperature 98.4 F 98.0 F Pulse Rate 89 77 62 Respiratory Rate 16 17 18 Blood Pressure 137/79 142/74 H Pulse Oximetry 97 94 L 93 L 04/10/18 08:35 Temperature Pulse Rate 78 Respiratory Rate 18 Blood Pressure Pulse Oximetry Intake & Output 04/09/18 04/10/18 04/10/18 18:59 06:59 18:59 Intake Total 1475 / 1475 1600 / 1600 Balance 1475 / 1475 1600 / 1600 Weight 101.1 kg Intake: IV 1000 / 1000 1000 / 1000 NS Inj 1,000 ML @ 145 mls/hr IV 1000 / 1000 1000 / 1000 .CONT .Q6H54M [facility] Rx#:[id number] Oral 475 / 475 600 / 600 Other: # Voids 4 2 Date of Last Bowel Movement 04/07/18 <Nneka Norman 04/10/18 09:15> Narrative: GENERAL: Well-appearing in no distress. Currently receiving breathing treatment. SKIN: Warm and dry. HEAD: Atraumatic. Normocephalic. EYES: EOMI. Pupils equal and round. Mild scleral icterus. No injection or drainage. ENT: No nasal bleeding or discharge. Mucous membranes pink and moist. Tongue is midline. No uvula deviation. NECK: Trachea midline. No JVD. CARDIOVASCULAR: Regular rate and rhythm. No murmur appreciated. RESPIRATORY: No accessory muscle use. Clear to auscultation. Breath sounds equal bilaterally. GASTROINTESTINAL: Abdomen soft, nontender to palpation of the abdomen, nondistended. Hepatic and splenic margins not palpable. Negative Osei sign. MUSCULOSKELETAL: No obvious deformities. No clubbing. No cyanosis. No edema. Full range of motion of the upper and lower extremities bilaterally. 2+ pulses bilaterally. NEUROLOGICAL: Awake and alert. No obvious cranial nerve deficits. Motor grossly within normal limits. Normal speech. PSYCHIATRIC: Appropriate mood and affect; insight and judgment normal. <Nneka Norman 04/10/18 09:55> Assessment and Plan - Assessment (1) Hyperbilirubinemia Code(s): E80.6 - Other disorders of bilirubin metabolism Status: Acute (2) Transaminitis Code(s): R74.0 - Nonspecific elevation of levels of transaminase and lactic acid dehydrogenase [LDH] Status: Acute (3) YANG (acute kidney injury) Code(s): N17.9 - Acute kidney failure, unspecified Status: Acute (4) Asthma Code(s): J45.909 - Unspecified asthma, uncomplicated Status: Acute (5) BPH (benign prostatic hyperplasia) Code(s): N40.0 - Benign prostatic hyperplasia without lower urinary tract symptoms Status: Acute (6) GERD (gastroesophageal reflux disease) Code(s): K21.9 - Gastro-esophageal reflux disease without esophagitis Status: Acute <Ranjit Coleman - 04/10/18 11:05> (1) Hyperbilirubinemia Code(s): E80.6 - Other disorders of bilirubin metabolism Status: Acute Plan: Patient is elevation of both conjugated and unconjugated bilirubin, but conjugated is elevated over unconjugated. Differential diagnosis includes biliary obstruction, intrahepatic cholestasis, hepatocellular injury, hepatocellular defects of clavicular excretion or sinusoidal reuptake, others. -Total bilirubin: 7.0 to 7.6 conjugated/direct bilirubin: 5.2 to 6.3 unconjugated/indirect bilirubin: 1.8 to 1.5 -alkaline phosphatase: 540 to 556 -aminotransferases, AST: 276 to 301, ALT: 424 to 447 -LDH: 364 -PT: 12.2, INR: 1.2, aPTT: 28.5, and albumin: 3.1, 3.0 -Hepatitis panel non-reactive -Right upper quadrant ultrasound showed: 1. Poorly visualized gallbladder. HIDA scan may help if cholecystitis is suspected. -ERCP showed 1. Mild hepatosplenomegaly. 2. Fatty liver. 3. Several tiny subcentimeter hepatic cysts. 4. No biliary ductal dilatation. 5. Degenerative changes and scoliosis of thoracolumbar spine. -HIDA scan showed . Suspected poor hepatic function with not only slow uptake of radiotracer from the blood stream but no activity identified in the common bile duct or small bowel. No active disease in the gallbladder which is markedly decompressed. (2) Transaminitis Code(s): R74.0 - Nonspecific elevation of levels of transaminase and lactic acid dehydrogenase [LDH] Status: Acute Plan: Continue to trend LFTs -aminotransferases, AST: 276 to 301, ALT: 424 to 447 -GGT 808 -Consider liver biopsy -Hepatitis panel nonreactive -Ferritin of 1011, iron 70, TIBC 237, percent saturation 29.6 GI consulted: -Ordered liver immunology and HFE, pending -Recommend supportive care (3) YANG (acute kidney injury) Code(s): N17.9 - Acute kidney failure, unspecified Status: Acute Plan: Unclear if YANG or CKD. Likely prerenal YANG based on the history. -Continue IV fluid hydration -Continue to monitor (4) Asthma Code(s): J45.909 - Unspecified asthma, uncomplicated Status: Acute Plan: Patient required Solu-Medrol and breathing treatments in the emergency department. -Continue prednisone 20 mg p.o. bid -Continue to alternate albuterol nebs and duo nebs -Continue home medication montelukast -Continue home Symbicort 2 puffs twice daily (5) BPH (benign prostatic hyperplasia) Code(s): N40.0 - Benign prostatic hyperplasia without lower urinary tract symptoms Status: Acute Plan: -Continue home medication of tamsulosin (6) GERD (gastroesophageal reflux disease) Code(s): K21.9 - Gastro-esophageal reflux disease without esophagitis Status: Acute Plan: -Continue home medication of omeprazole with pharmacy replacement -Given TUMS overnight <Nneka Norman - 04/10/18 11:01> - Assessment and Plan Patient is a 72 yo M with hx of asthma, borderline DM, GERD, and BPH who presents with 2 weeks of asthma exacerbation and almost a week of abdominal pain after eating, white stools, lack of appetite with associate fever and chills, found to have hyperbilirubinemia, transaminitis, YANG, on top of his asthma exacerbation. Plan to admit patient to workup this problem with extensive labs and imaging while treating his asthma exacerbation with steroids and breathing treatments. FEN/ppx: Fluids: Maintenance IV fluids Electrolytes: Monitor and replete Nutrition: Regular basic diet as tolerated DVT prophylaxis: Lovenox 40 mg subcu daily GI prophylaxis: Continue patient home medication of PPI <Nneka Norman - 04/10/18 09:55> - Attending Attestation The exam, history, and the medical decision-making described in the above note were completed with the assistance of the resident physician. I reviewed and agree with the findings presented. I attest that I had a [id number] encounter with the patient on the same day, and personally performed and documented my assessment and findings in the medical record. Patient getting further scanning, discussed poor hepatic function seen on initial HIDA and how he was probably going back today to see where the tracer is now. explained how we are doing a lot of serologic/immunologic testing to see the cause of this hepatic dysfunction but dont have a clear answer yet. Ferritin was very high so HFE pending. other tests negative or pending so far. will add A1c today but no further testing, appreciate GI recommendations. He is not in pain but still having acholic stool. <Ranjit Coleman - 04/10/18 11:05>
[2018-04-10] MEDS: Budesonide-Formoterol 160/4.5 MCG 6 GM Inhaler INH SCH ×2 (12:38→23:09)
[2018-04-10] MEDS: Enoxaparin Inj 40 MG/0.4 ML Syringe SQ SCH (17:23)
[2018-04-10] MEDS: Montelukast 10 MG Tablet PO SCH (17:23)
--- NOTE | 2018-04-10 18:39 | P.PNGI ---
Subjective Interval history: Patient sitting in chair No nausea no vomiting no abdominal pain Agrees to undergo CT guided biopsy of the liver Physical Exam Vital signs: Vital Signs 04/09/18 20:00 04/09/18 21:22 04/10/18 00:00 Temperature 97.2 F L 98.4 F Pulse Rate 68 89 77 Respiratory Rate 17 16 17 Blood Pressure 129/73 137/79 Pulse Oximetry 95 97 94 L 04/10/18 08:00 04/10/18 08:35 04/10/18 11:22 Temperature 98.0 F Pulse Rate 62 78 69 Respiratory Rate 18 18 17 Blood Pressure 142/74 H Pulse Oximetry 93 L 04/10/18 11:43 04/10/18 16:00 04/10/18 16:45 Temperature 98.0 F 97.9 F Pulse Rate 70 92 H 92 H Respiratory Rate 20 20 18 Blood Pressure 162/81 H 160/87 H Pulse Oximetry 93 L 95 Intake & Output 04/09/18 04/10/18 04/10/18 18:59 06:59 18:59 Intake Total 1475 / 1475 1600 / 1600 1999 Balance 1475 / 1475 1600 / 1600 1999 Weight 101.1 kg Intake: IV 1000 / 1000 1000 / 1000 1999 NS Inj 1,000 ML @ 145 mls/hr IV 1000 / 1000 1000 / 1000 1999 .CONT .Q6H54M [facility] Rx#:[id number] Oral 475 / 475 600 / 600 Other: # Voids 4 2 4 Date of Last Bowel Movement 04/10/18 # Bowel Movements 2 - Constitutional no acute distress - Routine HEENT Exam Head: Present: normocephalic, atraumatic Eye: Present: conjunctival icterus - Routine Neck Exam Present: supple - Routine Respiratory Exam Present: CTA bilaterally - Routine Cardiovascular Exam Present: RRR, S1, S2 - Routine Abdominal Exam Present: soft, normoactive bowel sounds. Absent: tenderness, distended - Routine Extremities Exam Present: pulses intact, normal capillary refill - Routine Skin Exam Present: intact, jaundice - Routine Neurological Exam Present: alert, oriented X3 Results - Labs CBC & Chem 7: 04/10/18 06:59 04/10/18 06:59 Laboratory Results - last 24 hr 04/09/18 04/09/18 04/09/18 07:00 07:00 07:00 WBC RBC Hgb Hct MCV MCH MCHC RDW Plt Count MPV Sodium Potassium Chloride Carbon Dioxide Anion Gap BUN Creatinine Estimated GFR Random Glucose Calcium Total Bilirubin AST ALT Alkaline Phosphatase Total Protein Albumin Fkret-9-Tbjgwxkivec 274 H JESSI Screen Neg Anti-Smooth Muscle Ab Negative 04/10/18 04/10/18 06:59 06:59 WBC 10.2 RBC 4.14 L Hgb 13.1 Hct 37.6 L MCV 90.8 MCH 31.6 MCHC 34.8 RDW 15.9 Plt Count 228 MPV 9.4 Sodium 139 Potassium 4.4 Chloride 109 H Carbon Dioxide 22.2 Anion Gap 8 BUN 21 H Creatinine 1.16 Estimated GFR 62 L Random Glucose 136 H Calcium 8.1 L Total Bilirubin 7.6 H AST 534 H ALT 568 H Alkaline Phosphatase 556 H Total Protein 6.1 L D Albumin 2.8 L Xxtst-2-Pxejzlzbksz JESSI Screen Anti-Smooth Muscle Ab Microbiology 04/10/18 08:25 Stool Enteric Pathogens (PCR) - Final No enteric pathogens detected by PCR (No Salmonella sp., Shigella sp., Campylobacter sp., Yersinia enterocolitica, Vibrio sp., Norovirus, or EHEC (Shiga Toxin 1 or Shiga Toxin 2) detected. - Imaging Impressions Hepatobiliary Scan Nuclear Medicine 04/09/18 00:00 CONCLUSION: 1. Suspected poor hepatic function with not only slow uptake of radiotracer from the blood stream but no activity identified in the common bile duct or small bowel. No active disease in the gallbladder which is markedly decompressed. I reviewed the recent CT scan without evidence of biliary dilatation, pancreatic mass, or any other cause for common bile duct obstruction. Assessment and Plan (1) Biliary obstruction Status: Acute Code(s): K83.1 - Obstruction of bile duct (2) Hyperbilirubinemia Status: Acute Code(s): E80.6 - Other disorders of bilirubin metabolism (3) Transaminitis Status: Acute Code(s): R74.0 - Nonspecific elevation of levels of transaminase and lactic acid dehydrogenase [LDH] - Plan Patient seen earlier today. This patient is a 72-year-old male with past medical history significant for asthma, GERD, diabetes and BPH. Surgical history significant for shoulder history, back surgery, tonsillectomy and wrist surgery. Patient presented to [facility] with report of 10-day history of right upper quadrant sharp pain that radiated to epigastric area with nausea. Patient also endorses poor appetite. Upon arrival, patient was noted to have elevated transaminases. Patient reports subjective fevers denies chills. Our service has been consulted to evaluate patient for possible biliary obstruction. Transaminitis Hyperbilirubinemia Jaundice 04/09/2018 HIDA scan:. Suspected poor hepatic function with not only slow uptake of radiotracer from the blood stream but no activity identified in the common bile duct or small bowel. No active disease in the gallbladder which is markedly decompressed. I reviewed the recent CT scan without evidence of biliary dilatation, pancreatic mass, or any other cause for common bile duct obstruction. 04/08/2018 gallbladder ultrasound:. Poorly visualized gallbladder. HIDA scan may help if cholecystitis is suspected. 04/08/2018 MRCP: Mild hepatosplenomegaly. Fatty liver. Several tiny subcentimeter hepatic cysts. No biliary ductal dilatation. Degenerative changes and scoliosis of thoracolumbar spine. WBC 7.9 hemoglobin 14 hematocrit 40 platelet count 220 INR 1.2 Total bilirubin 7.8 AST 301 ALT 447 alk phos 618 GGT 808 Hepatitis panel nonreactive 04/10/2018 Assessment Fatty liver Elevated transaminases Elevated alkaline phosphatase Patient agrees to do CT-guided biopsy of the liver in light of increasing transaminases Today's lab hematocrit 37.6 hemoglobin 13.1 AST 534 ALT 568 alkaline phosphatase 556 Plan Cardiac diet Awaiting liver immunology as well as HFE for hemochromatosis to be resulted CT biopsy of the liver Monitor labs we will do PT/INR in the morning and CBC Avoid hepatotoxins Supportive care PPI Analgesics and antiemetics as per attending Further recommendations to follow This patient has been seen by myself and Dr. Laird and this note is written on his behalf - Attending Attestation Dr. Laird
[2018-04-10 21:42] LABS: Anion Gap 9 meq/L (5-15); Blood Urea Nitrogen 21 mg/dL (7-18); Carbon Dioxide 19.2 meq/L (21.0-32.0); Chloride 107 meq/L (98-107); Glomerular Filtration Rate 52 mL/min (>89); Potassium 4.3 meq/L (3.5-5.1); Sodium 135 meq/L (136-145)
[2018-04-10 21:43] LABS: Albumin 2.9 g/dL (3.4-5.0); Aspartate Aminotransferase 567 U/L (15-37); Calcium 8.3 mg/dL (8.5-10.1); Glucose,Random 180 mg/dL (74-106)
[2018-04-10 21:46] LABS: Alanine Aminotransferase 729 U/L (12-78); Alkaline Phosphatase 570 U/L (45-117); Total Protein 6.4 g/dL (6.4-8.2)
[2018-04-10] MEDS: Latanoprost 0.005% Opth Drops 2.5 ML Bottle EACH EYE SCH (23:10)
[2018-04-11 06:16] LABS: Hematocrit 37.9 % (39.0-51.0); Hemoglobin 13.3 gm/dL (13.0-17.0); Mean Corpuscular Hemoglobin 31.2 pg (27.0-34.0); Mean Corpuscular Volume 89.2 fL (80.0-100.0); Mean Platelet Volume 8.7 fL (7.0-11.0); Platelet Count 255 th/mm3 (150-450); Red Blood Count 4.26 mil/mm3 (4.50-5.90); Red Cell Distribution Width 15.6 % (11.6-17.2); White Blood Count 9.9 th/mm3 (4.0-11.0)
[2018-04-11 06:23] LABS: INR 1.2 Ratio; Prothrombin Time 12.3 sec (9.8-11.6)
[2018-04-11] MEDS: Sod Chloride 0.9% Inj 1,000 ML IV.CONT SCH ×4 (06:28→21:23)
[2018-04-11 06:48] LABS: Alanine Aminotransferase 815 U/L (12-78); Albumin 3.1 g/dL (3.4-5.0); Anion Gap 9 meq/L (5-15); Aspartate Aminotransferase 654 U/L (15-37); Blood Urea Nitrogen 17 mg/dL (7-18); Calcium 8.2 mg/dL (8.5-10.1); Carbon Dioxide 21.9 meq/L (21.0-32.0); Chloride 107 meq/L (98-107); Glomerular Filtration Rate 58 mL/min (>89); Glucose,Random 132 mg/dL (74-106); Potassium 4.3 meq/L (3.5-5.1); Sodium 138 meq/L (136-145)
[2018-04-11 06:51] LABS: Alkaline Phosphatase 595 U/L (45-117); Total Protein 6.6 g/dL (6.4-8.2)
[2018-04-11] MEDS: Budesonide-Formoterol 160/4.5 MCG 6 GM Inhaler INH SCH ×2 (09:48→21:24)
[2018-04-11] MEDS: predniSONE 20 MG Tablet PO SCH ×2 (09:53→21:23)
[2018-04-11] MEDS: Senna/Docusate Sodium 8.6/50 MG Tablet PO SCH ×2 (09:54→21:23)
--- NOTE | 2018-04-11 10:04 | P.PNFP ---
Subjective Interval history: Patient seen examined this morning. Patient states that he is feeling well this morning, denies fever, nausea, vomiting, chest pain, shortness of breath, abdominal pain, or leg pain or swelling. He is to undergo CT-guided biopsy of the liver today. Patient states that he is visiting from [place] and is supposed to return on 04/18/18. He is wondering if he will be cleared for travel by that time. At this point in time, we are waiting the results of the CT-guided biopsy before we are able to discuss a definitive plan of treatment. He does not have any GI outpatient follow-up set up in [place] at this point in time. Discussed with patient that we can talk to case management to find a possible flag decorator they could see him outpatient and notes that she would try and call the patient's PCP and see if they recommend any gastroenterologists in the area for outpatient follow-up. All questions answered. <Nneka Norman - 04/11/18 12:08> Results - Labs Result diagrams: 04/11/18 06:02 04/11/18 06:02 <Ranjit Coleman - 04/11/18 14:54> Abnormal lab results 04/10/18 04/11/18 04/11/18 Range/Units 21:00 06:02 06:02 RBC 4.26 L (4.50-5.90) mil/mm3 Hct 37.9 L (39.0-51.0) % PT (9.8-11.6) sec Sodium 135 L (136-145) meq/L Carbon Dioxide 19.2 L (21.0-32.0) meq/L BUN 21 H (7-18) mg/dL Creatinine 1.35 H (0.60-1.30) mg/dL Estimated GFR 52 L 58 L (>89) mL/min Random Glucose 180 H 132 H (74-106) mg/dL Calcium 8.3 L 8.2 L (8.5-10.1) mg/dL Total Bilirubin 8.8 H 9.5 H (0.2-1.0) mg/dL AST 567 H 654 H (15-37) U/L ALT 729 H 815 H (12-78) U/L Alkaline Phosphatase 570 H 595 H (45-117) U/L Albumin 2.9 L 3.1 L (3.4-5.0) g/dL 04/11/18 Range/Units 06:02 RBC (4.50-5.90) mil/mm3 Hct (39.0-51.0) % PT 12.3 H (9.8-11.6) sec Sodium (136-145) meq/L Carbon Dioxide (21.0-32.0) meq/L BUN (7-18) mg/dL Creatinine (0.60-1.30) mg/dL Estimated GFR (>89) mL/min Random Glucose (74-106) mg/dL Calcium (8.5-10.1) mg/dL Total Bilirubin (0.2-1.0) mg/dL AST (15-37) U/L ALT (12-78) U/L Alkaline Phosphatase (45-117) U/L Albumin (3.4-5.0) g/dL Short CBC 04/11/18 Range/Units 06:02 WBC 9.9 (4.0-11.0) th/mm3 Hgb 13.3 (13.0-17.0) gm/dL Hct 37.9 L (39.0-51.0) % Plt Count 255 (150-450) th/mm3 BMP 04/10/18 04/11/18 21:00 06:02 Sodium 135 L 138 Potassium 4.3 4.3 Chloride 107 107 Carbon Dioxide 19.2 L 21.9 BUN 21 H 17 Creatinine 1.35 H 1.24 Calcium 8.3 L 8.2 L Liver Function 04/10/18 04/11/18 Range/Units 21:00 06:02 Total Bilirubin 8.8 H 9.5 H (0.2-1.0) mg/dL AST 567 H 654 H (15-37) U/L ALT 729 H 815 H (12-78) U/L Alkaline Phosphatase 570 H 595 H (45-117) U/L Albumin 2.9 L 3.1 L (3.4-5.0) g/dL <Ranjit Coleman - 04/11/18 14:54> Abnormal lab results 04/09/18 04/10/18 04/11/18 Range/Units 07:00 21:00 06:02 RBC 4.26 L (4.50-5.90) mil/mm3 Hct 37.9 L (39.0-51.0) % PT (9.8-11.6) sec Sodium 135 L (136-145) meq/L Carbon Dioxide 19.2 L (21.0-32.0) meq/L BUN 21 H (7-18) mg/dL Creatinine 1.35 H (0.60-1.30) mg/dL Estimated GFR 52 L (>89) mL/min Random Glucose 180 H (74-106) mg/dL Calcium 8.3 L (8.5-10.1) mg/dL Total Bilirubin 8.8 H (0.2-1.0) mg/dL AST 567 H (15-37) U/L ALT 729 H (12-78) U/L Alkaline Phosphatase 570 H (45-117) U/L Albumin 2.9 L (3.4-5.0) g/dL Tccnv-2-Rfdxrdxcyfh 274 H (100 - 190) mg/dL 04/11/18 04/11/18 Range/Units 06:02 06:02 RBC (4.50-5.90) mil/mm3 Hct (39.0-51.0) % PT 12.3 H (9.8-11.6) sec Sodium (136-145) meq/L Carbon Dioxide (21.0-32.0) meq/L BUN (7-18) mg/dL Creatinine (0.60-1.30) mg/dL Estimated GFR 58 L (>89) mL/min Random Glucose 132 H (74-106) mg/dL Calcium 8.2 L (8.5-10.1) mg/dL Total Bilirubin 9.5 H (0.2-1.0) mg/dL AST 654 H (15-37) U/L ALT 815 H (12-78) U/L Alkaline Phosphatase 595 H (45-117) U/L Albumin 3.1 L (3.4-5.0) g/dL Hvudp-3-Wisdmhphage (100 - 190) mg/dL Short CBC 04/11/18 Range/Units 06:02 WBC 9.9 (4.0-11.0) th/mm3 Hgb 13.3 (13.0-17.0) gm/dL Hct 37.9 L (39.0-51.0) % Plt Count 255 (150-450) th/mm3 BMP 04/10/18 04/11/18 21:00 06:02 Sodium 135 L 138 Potassium 4.3 4.3 Chloride 107 107 Carbon Dioxide 19.2 L 21.9 BUN 21 H 17 Creatinine 1.35 H 1.24 Calcium 8.3 L 8.2 L Liver Function 04/10/18 04/11/18 Range/Units 21:00 06:02 Total Bilirubin 8.8 H 9.5 H (0.2-1.0) mg/dL AST 567 H 654 H (15-37) U/L ALT 729 H 815 H (12-78) U/L Alkaline Phosphatase 570 H 595 H (45-117) U/L Albumin 2.9 L 3.1 L (3.4-5.0) g/dL <Nneka Norman - 04/11/18 10:04> - Imaging Impressions Hepatobiliary Scan Nuclear Medicine 04/09/18 00:00 CONCLUSION: 1. Suspected poor hepatic function with not only slow uptake of radiotracer from the blood stream but no activity identified in the common bile duct or small bowel. No active disease in the gallbladder which is markedly decompressed. I reviewed the recent CT scan without evidence of biliary dilatation, pancreatic mass, or any other cause for common bile duct obstruction. <Nneka Norman - 04/11/18 10:04> Physical Exam Vital signs: Vital Signs 04/10/18 16:00 04/10/18 16:45 04/10/18 20:00 Temperature 97.9 F 97.8 F Pulse Rate 92 H 92 H 97 H Respiratory Rate 20 18 18 Blood Pressure 160/87 H 136/72 Pulse Oximetry 95 92 L 04/10/18 20:14 04/10/18 20:16 04/10/18 23:38 Temperature 98.0 F Pulse Rate 83 78 Respiratory Rate 18 17 Blood Pressure 131/75 Pulse Oximetry 95 93 L 04/11/18 00:08 04/11/18 08:00 04/11/18 08:16 Temperature 97.8 F Pulse Rate 73 67 80 Respiratory Rate 16 16 16 Blood Pressure 139/77 Pulse Oximetry 94 L 04/11/18 11:00 04/11/18 12:00 Temperature 97.9 F Pulse Rate 72 71 Respiratory Rate 14 15 Blood Pressure 152/70 H Pulse Oximetry 93 L Intake & Output 04/10/18 04/11/18 04/11/18 18:59 06:59 18:59 Intake Total 3500 / 3500 2600 / 2600 Balance 3500 / 3500 2600 / 2600 Weight 101.1 kg Intake: IV 1999 NS Inj 1,000 ML @ 145 mls/hr IV 1999 .CONT .Q6H54M [facility] Rx#:[id number] Oral 1500 / 1500 600 / 600 Other: # Voids 4 2 Date of Last Bowel Movement 04/10/18 04/07/18 04/07/18 # Bowel Movements 1 <Ranjit Coleman K - 04/11/18 14:54> Vital Signs 04/10/18 11:22 04/10/18 11:43 04/10/18 16:00 Temperature 98.0 F 97.9 F Pulse Rate 69 70 92 H Respiratory Rate 17 20 20 Blood Pressure 162/81 H 160/87 H Pulse Oximetry 93 L 95 04/10/18 16:45 04/10/18 20:00 04/10/18 20:14 Temperature 97.8 F Pulse Rate 92 H 97 H 83 Respiratory Rate 18 18 18 Blood Pressure 136/72 Pulse Oximetry 92 L 04/10/18 20:16 04/10/18 23:38 04/11/18 00:08 Temperature 98.0 F Pulse Rate 78 73 Respiratory Rate 17 16 Blood Pressure 131/75 Pulse Oximetry 95 93 L 04/11/18 08:00 04/11/18 08:16 Temperature 97.8 F Pulse Rate 67 80 Respiratory Rate 16 16 Blood Pressure 139/77 Pulse Oximetry 94 L Intake & Output 04/10/18 04/11/18 04/11/18 18:59 06:59 18:59 Intake Total 3500 / 3500 2600 / 2600 Balance 3500 / 3500 2600 / 2600 Weight 101.1 kg Intake: IV 1999 NS Inj 1,000 ML @ 145 mls/hr IV 1999 .CONT .Q6H54M [facility] Rx#:[id number] Oral 1500 / 1500 600 / 600 Other: # Voids 4 2 Date of Last Bowel Movement 04/10/18 04/07/18 # Bowel Movements 1 <Nneka Norman 04/11/18 10:04> Narrative: GENERAL: Well-appearing 74-year-old male, sitting up in bed, in no acute distress. SKIN: Warm and dry. HEAD: Atraumatic. Normocephalic. EYES: EOMI. Pupils equal and round. Mild scleral icterus. No injection or drainage. CARDIOVASCULAR: Regular rate and rhythm. No murmur appreciated. RESPIRATORY: No accessory muscle use. Clear to auscultation. Breath sounds equal bilaterally. GASTROINTESTINAL: Abdomen soft, nontender to palpation of the abdomen, nondistended. Hepatic and splenic margins not palpable. Negative Osei sign. MUSCULOSKELETAL: No obvious deformities. No clubbing. No cyanosis. No edema. Full range of motion of the upper and lower extremities bilaterally. 2+ pulses bilaterally. NEUROLOGICAL: Awake and alert. No obvious cranial nerve deficits. Motor grossly within normal limits. Normal speech. PSYCHIATRIC: Appropriate mood and affect; insight and judgment normal. <Nneka Norman 04/11/18 12:08> Assessment and Plan - Assessment (1) Hyperbilirubinemia Code(s): E80.6 - Other disorders of bilirubin metabolism Status: Acute (2) Transaminitis Code(s): R74.0 - Nonspecific elevation of levels of transaminase and lactic acid dehydrogenase [LDH] Status: Acute (3) YANG (acute kidney injury) Code(s): N17.9 - Acute kidney failure, unspecified Status: Acute (4) Asthma Code(s): J45.909 - Unspecified asthma, uncomplicated Status: Acute (5) BPH (benign prostatic hyperplasia) Code(s): N40.0 - Benign prostatic hyperplasia without lower urinary tract symptoms Status: Acute (6) GERD (gastroesophageal reflux disease) Code(s): K21.9 - Gastro-esophageal reflux disease without esophagitis Status: Acute <Ranjit Coleman 04/11/18 14:54> (1) Hyperbilirubinemia Code(s): E80.6 - Other disorders of bilirubin metabolism Status: Acute Plan: Patient is elevation of both conjugated and unconjugated bilirubin, but conjugated is elevated over unconjugated. Differential diagnosis includes biliary obstruction, intrahepatic cholestasis, hepatocellular injury, hepatocellular defects of clavicular excretion or sinusoidal reuptake, others. -Total bilirubin: 7.0 to 7.6 conjugated/direct bilirubin: 5.2 to 6.3 unconjugated/indirect bilirubin: 1.8 to 1.5 -alkaline phosphatase, continue to increase -aminotransferases, continuing to increase -LDH: 364 -PT: 12.2, INR: 1.2, aPTT: 28.5, and albumin: 3.1, 3.0 -Hepatitis panel non-reactive -Right upper quadrant ultrasound showed: 1. Poorly visualized gallbladder. HIDA scan may help if cholecystitis is suspected. -ERCP showed 1. Mild hepatosplenomegaly. 2. Fatty liver. 3. Several tiny subcentimeter hepatic cysts. 4. No biliary ductal dilatation. 5. Degenerative changes and scoliosis of thoracolumbar spine. -HIDA scan showed . Suspected poor hepatic function with not only slow uptake of radiotracer from the blood stream but no activity identified in the common bile duct or small bowel. No active disease in the gallbladder which is markedly decompressed. (2) Transaminitis Code(s): R74.0 - Nonspecific elevation of levels of transaminase and lactic acid dehydrogenase [LDH] Status: Acute Plan: Continue to trend LFTs -aminotransferases, continue to increase -GGT 808 -Hepatitis panel nonreactive -Ferritin of 1011, iron 70, TIBC 237, percent saturation 29.6 -AFP, CEA, and CA 19-9 negative -JESSI, SMA , mitochondrial M2 negative -A1A elevated, hemochromatosis labs pending GI consulted: -Ordered liver immunology and HFE, pending -Patient scheduled for CT-guided biopsy of the liver today. (3) YANG (acute kidney injury) Code(s): N17.9 - Acute kidney failure, unspecified Status: Acute Plan: Unclear if YANG or CKD. Likely prerenal YANG based on the history. -Continue IV fluid hydration -Continue to monitor (4) Asthma Code(s): J45.909 - Unspecified asthma, uncomplicated Status: Acute Plan: Patient required Solu-Medrol and breathing treatments in the emergency department. -Continue prednisone 20 mg p.o. bid -Continue to alternate albuterol nebs and duo nebs -Continue home medication montelukast -Continue home Symbicort 2 puffs twice daily (5) BPH (benign prostatic hyperplasia) Code(s): N40.0 - Benign prostatic hyperplasia without lower urinary tract symptoms Status: Acute Plan: -Continue home medication of tamsulosin (6) GERD (gastroesophageal reflux disease) Code(s): K21.9 - Gastro-esophageal reflux disease without esophagitis Status: Acute Plan: -Continue home medication of omeprazole with pharmacy replacement -Given TUMS overnight <Nneka Norman - 04/11/18 13:32> - Assessment and Plan Patient is a 72 yo M with hx of asthma, borderline DM, GERD, and BPH who presents with 2 weeks of asthma exacerbation and almost a week of abdominal pain after eating, white stools, lack of appetite with associate fever and chills, found to have hyperbilirubinemia, transaminitis, YANG, on top of his asthma exacerbation. Plan to admit patient to workup this problem with extensive labs and imaging while treating his asthma exacerbation with steroids and breathing treatments. FEN/ppx: Fluids: Maintenance IV fluids Electrolytes: Monitor and replete Nutrition: Regular basic diet as tolerated DVT prophylaxis: Lovenox 40 mg subcu daily GI prophylaxis: Continue patient home medication of PPI dw Dr. Coleman <Nneka Norman - 04/11/18 13:37> - Attending Attestation The exam, history, and the medical decision-making described in the above note were completed with the assistance of the resident physician. I reviewed and agree with the findings presented. I attest that I had a [id number] encounter with the patient on the same day, and personally performed and documented my assessment and findings in the medical record. Had some mild abdominal discomfort but no vomiting. still light colored stools. of note, son had a glucagonoma per patient and his LFTs still uptrending without a diagnosis yet CT guided liver biopsy today need to figure out best way to follow up results if he does not stay discussed either staying in town longer than planned to get outpatient GI appointment or working out sending records to his PCP with good contact to facilitate out of state reference. awaiting GI recommendations after biopsy to help determine discharge timeline. <Ranjit Coleman - 04/11/18 14:54>
[2018-04-11] MEDS ORDERED: fentaNYL Citrate Inj 250 MCG/5 ML Ampul ONE (13:51)
--- NOTE | 2018-04-11 14:25 | P.PNGI ---
Subjective Interval history: Patient awake and alert Laying supine in bed Denies abdominal pain nausea or vomiting. Awaiting CT-guided liver biopsy Physical Exam Vital signs: Vital Signs 04/10/18 16:00 04/10/18 16:45 04/10/18 20:00 Temperature 97.9 F 97.8 F Pulse Rate 92 H 92 H 97 H Respiratory Rate 20 18 18 Blood Pressure 160/87 H 136/72 Pulse Oximetry 95 92 L 04/10/18 20:14 04/10/18 20:16 04/10/18 23:38 Temperature 98.0 F Pulse Rate 83 78 Respiratory Rate 18 17 Blood Pressure 131/75 Pulse Oximetry 95 93 L 04/11/18 00:08 04/11/18 08:00 04/11/18 08:16 Temperature 97.8 F Pulse Rate 73 67 80 Respiratory Rate 16 16 16 Blood Pressure 139/77 Pulse Oximetry 94 L 04/11/18 11:00 04/11/18 12:00 Temperature 97.9 F Pulse Rate 72 71 Respiratory Rate 14 15 Blood Pressure 152/70 H Pulse Oximetry 93 L Intake & Output 04/10/18 04/11/18 04/11/18 18:59 06:59 18:59 Intake Total 3500 / 3500 2600 / 2600 Balance 3500 / 3500 2600 / 2600 Weight 101.1 kg Intake: IV 1999 NS Inj 1,000 ML @ 145 mls/hr IV 1999 .CONT .Q6H54M [facility] Rx#:[id number] Oral 1500 / 1500 600 / 600 Other: # Voids 4 2 Date of Last Bowel Movement 04/10/18 04/07/18 04/07/18 # Bowel Movements 1 - Constitutional no acute distress, cooperative - Routine HEENT Exam Head: Present: normocephalic Eye: Present: conjunctival icterus - Routine Respiratory Exam Present: CTA bilaterally. Absent: accessory muscle use - Routine Abdominal Exam Present: soft, normoactive bowel sounds. Absent: tenderness, distended, organomegaly - Routine Extremities Exam Absent: edema - Routine Skin Exam Present: dry, warm - Routine Neurological Exam Present: alert, oriented X3 Results - Labs CBC & Chem 7: 04/11/18 06:02 04/11/18 06:02 Laboratory Results - last 24 hr 04/09/18 04/10/18 04/10/18 07:00 21:00 21:00 WBC RBC Hgb Hct MCV MCH MCHC RDW Plt Count MPV PT INR Sodium Potassium Chloride Carbon Dioxide Anion Gap BUN Creatinine Estimated GFR Random Glucose Calcium Total Bilirubin AST ALT Alkaline Phosphatase Total Protein Albumin Dmxuw-1-Hzfwdbslkso 274 H Carcinoembryonic Ag 1.5 CA 19-9 Antigen 34.2 04/10/18 04/11/18 04/11/18 21:00 06:02 06:02 WBC 9.9 RBC 4.26 L Hgb 13.3 Hct 37.9 L MCV 89.2 MCH 31.2 MCHC 35.0 RDW 15.6 Plt Count 255 MPV 8.7 PT INR Sodium 135 L 138 Potassium 4.3 4.3 Chloride 107 107 Carbon Dioxide 19.2 L 21.9 Anion Gap 9 9 BUN 21 H 17 Creatinine 1.35 H 1.24 Estimated GFR 52 L 58 L Random Glucose 180 H 132 H Calcium 8.3 L 8.2 L Total Bilirubin 8.8 H 9.5 H AST 567 H 654 H ALT 729 H 815 H Alkaline Phosphatase 570 H 595 H Total Protein 6.4 6.6 Albumin 2.9 L 3.1 L Upfip-4-Patvxkwqiov Carcinoembryonic Ag CA 19-9 Antigen 04/11/18 06:02 WBC RBC Hgb Hct MCV MCH MCHC RDW Plt Count MPV PT 12.3 H INR 1.2 Sodium Potassium Chloride Carbon Dioxide Anion Gap BUN Creatinine Estimated GFR Random Glucose Calcium Total Bilirubin AST ALT Alkaline Phosphatase Total Protein Albumin Yyawk-7-Cktqktvauxz Carcinoembryonic Ag CA 19-9 Antigen Microbiology 04/10/18 08:25 Stool Cryptosporidium Antigen - Final Negative - No Cryptosporicium antigen detected In selected cases of patients with a history of immunosuppression or foreign travel, a full ova and parasites examination may be desired. Contact the microbiology lab if full workup is indicated and subit another specimen for testing. 04/10/18 08:25 Stool Giardia Antigen (LINDA) - Final Negative - No Giardia Antigen detected In selected cases of patients with a history of immunosuppression or foreign travel, a full ova and parasites examination may be desired. Contact the microbiology lab if full workup is indicated and subit another specimen for testing. 04/10/18 08:25 Stool Enteric Pathogens (PCR) - Final No enteric pathogens detected by PCR (No Salmonella sp., Shigella sp., Campylobacter sp., Yersinia enterocolitica, Vibrio sp., Norovirus, or EHEC (Shiga Toxin 1 or Shiga Toxin 2) detected. Assessment and Plan (1) Biliary obstruction Status: Acute Code(s): K83.1 - Obstruction of bile duct (2) Hyperbilirubinemia Status: Acute Code(s): E80.6 - Other disorders of bilirubin metabolism (3) Transaminitis Status: Acute Code(s): R74.0 - Nonspecific elevation of levels of transaminase and lactic acid dehydrogenase [LDH] - Plan Patient seen earlier today. This patient is a 72-year-old male with past medical history significant for asthma, GERD, diabetes and BPH. Surgical history significant for shoulder history, back surgery, tonsillectomy and wrist surgery. Patient presented to [facility] with report of 10-day history of right upper quadrant sharp pain that radiated to epigastric area with nausea. Patient also endorses poor appetite. Upon arrival, patient was noted to have elevated transaminases. Patient reports subjective fevers denies chills. Our service has been consulted to evaluate patient for possible biliary obstruction. Transaminitis Hyperbilirubinemia Jaundice 04/09/2018 HIDA scan:. Suspected poor hepatic function with not only slow uptake of radiotracer from the blood stream but no activity identified in the common bile duct or small bowel. No active disease in the gallbladder which is markedly decompressed. I reviewed the recent CT scan without evidence of biliary dilatation, pancreatic mass, or any other cause for common bile duct obstruction. 04/08/2018 gallbladder ultrasound:. Poorly visualized gallbladder. HIDA scan may help if cholecystitis is suspected. 04/08/2018 MRCP: Mild hepatosplenomegaly. Fatty liver. Several tiny subcentimeter hepatic cysts. No biliary ductal dilatation. Degenerative changes and scoliosis of thoracolumbar spine. WBC 7.9 hemoglobin 14 hematocrit 40 platelet count 220 INR 1.2 Total bilirubin 7.8 AST 301 ALT 447 alk phos 618 GGT 808 Hepatitis panel nonreactive 04/10/2018 Assessment Fatty liver Elevated transaminases Elevated alkaline phosphatase Patient agrees to do CT-guided biopsy of the liver in light of increasing transaminases Today's lab hematocrit 37.6 hemoglobin 13.1 AST 534 ALT 568 alkaline phosphatase 556 04/11/2018 Transaminitis Elevated alk phos without evidence of biliary duct obstruction Hepatic steatosis Patient denies abdominal pain nausea vomiting awaiting CT guided liver biopsy Hemoglobin 13.3 hematocrit 37.9 Tumor marker AFP 1.8 total bilirubin 9.5 AST 654 ALT 815 alk phos 595 trending upward Plan -Cardiac diet -Serum immunology--mitochondria pending -HFE for hemochromatosis pending -CT biopsy of the liver pending -Avoid hepatotoxins -Monitor labs -Analgesics and anti-emetics as per attending -Supportive care -Further recommendations to follow This patient has been seen by myself and Dr. Laird and this note is written on his behalf - Attending Attestation Dr. Laird
--- NOTE | 2018-04-11 14:28 | P.RAD ---
Post CT Procedure Prog Note - Pre Procedure Diagnosis (1) Hyperbilirubinemia (2) Transaminitis - Post Procedure Diagnosis (1) Hyperbilirubinemia (2) Transaminitis - Procedure Information Procedure Date: 04/11/18 Supervising Radiologist: Aleksey Ambrose Jr, MD Proceduralist/Assist: Grupo King Estimated blood loss (mL): 0 Anesthesia: Conscious Sedation - Plan of Activity Patient to Unit: [facility] Patient condition: Good See PACS Report for procedural detail/treatment. Biopsy CT right Liver Specimen: Core Biopsy Findings: Successful liver core bx for function. No bleeding on post ct images. Plan: To [facility]
[2018-04-11] MEDS ORDERED: Lidocaine 1%/Epinephrine 1:100,000 Inj 20 ML Vial I-DERMAL ONE (14:37)
--- NOTE | 2018-04-11 16:38 | CT ---
EXAM DATE: 04/11/2018 2:39 PM EST AGE/SEX: 72 years / Male INDICATIONS: Transaminitis. CLINICAL DATA: This is the patient's initial encounter. Patient reports that signs and symptoms have been present for 1 day and indicates a pain score of 0/10. MEDICAL/SURGICAL HISTORY: Diabetes. Gastroesophageal reflux disease. Pneumonia. . Back surger y. [place] [facility] [place]/08/2018. . SEDATION TIME (min): 15 BIOPSY SITE: . liver MEDICATION(S): 2.5mg midazolam (Versed) IV 150mcg fentanyl (Sublimaze) IV DEVICE(S): 18 gauge BioPince needle One core specimen(s) sent to the laboratory for pathologic evaluation. . . PROCEDURE: CT guided . liver biopsy Conscious sedation with continuous EKG and oximetry monitoring. EKG and oximetry remained stable throughout the procedure. Prior to the procedure informed consent was obtained. Any appropriate prior imaging studies were rev iewed. Using automated exposure control and adjustment of the mA and/or kV according to patient size, radiat ion dose was kept as low as reasonably achievable to obtain optimal diagnostic quality images. DICOM format image data is available electronically for review and comparison. The site was prepped in a sterile fashion. Full sterile technique was used, including cap, mask, leland rile gloves and gown and a large sterile sheet. Hand hygiene and 2% chlorhexidine and/or betadine/al cohol prep was utilized per protocol for cutaneous antisepsis. The skin and subcutaneous tissues wer e infiltrated with local anesthetic solution. With CT guidance the previously identified target was localized. Biopsy was performed using the presc ribed needle as above. Adequate hemostasis was obtained with compression at the puncture site. Follow-up CT scan reveals no hemorrhage. The patient tolerated the procedure well and there were no complications. The patient was returned to the Radiology Outpatient Unit in stable condition. FINDINGS: Successful core sampling of the right lobe of the liver for function. CONCLUSION: 1. Uncomplicated CT guided liver core biopsy. Electronically signed by: Aleksey Ambrose MD Board Certified Radiologist 04/11/2018 4:37 PM EST
[2018-04-11] MEDS: Enoxaparin Inj 40 MG/0.4 ML Syringe SQ SCH (17:05)
[2018-04-11] MEDS: Montelukast 10 MG Tablet PO SCH (17:39)
[2018-04-11] MEDS: Latanoprost 0.005% Opth Drops 2.5 ML Bottle EACH EYE SCH (21:24)
[2018-04-12] MEDS: Sod Chloride 0.9% Inj 1,000 ML IV.CONT SCH ×3 (04:32→20:50)
[2018-04-12 04:56] LABS: Baso # (Auto) 0.1 th/mm3 (0.0-0.2); Eos # (Auto) 0.1 th/mm3 (0.0-0.4); Eos % (Auto) 0.7 % (0.0-4.0); Hematocrit 37.3 % (39.0-51.0); Hemoglobin 13.1 gm/dL (13.0-17.0); Lymph # (Auto) 5.9 th/mm3 (1.0-4.8); Mean Corpuscular HGB Conc 35.1 % (32.0-36.0); Mean Corpuscular Hemoglobin 31.3 pg (27.0-34.0); Mean Corpuscular Volume 89.1 fL (80.0-100.0); Mean Platelet Volume 9.1 fL (7.0-11.0); Mono # (Auto) 0.8 th/mm3 (0.0-0.9); Mono % (Auto) 8.3 % (0.0-8.0); Neut # (Auto) 2.3 th/mm3 (1.8-7.7); Platelet Count 277 th/mm3 (150-450); Red Blood Count 4.18 mil/mm3 (4.50-5.90); Red Cell Distribution Width 15.6 % (11.6-17.2); White Blood Count 9.1 th/mm3 (4.0-11.0)
[2018-04-12 05:17] LABS: Alanine Aminotransferase 959 U/L (12-78); Alkaline Phosphatase 564 U/L (45-117); Total Protein 6.2 g/dL (6.4-8.2)
[2018-04-12 05:23] LABS: Albumin 2.7 g/dL (3.4-5.0); Anion Gap 8 meq/L (5-15); Blood Urea Nitrogen 16 mg/dL (7-18); Calcium 8.1 mg/dL (8.5-10.1); Carbon Dioxide 21.2 meq/L (21.0-32.0); Chloride 106 meq/L (98-107); Glomerular Filtration Rate 71 mL/min (>89); Glucose,Random 164 mg/dL (74-106); Sodium 135 meq/L (136-145)
[2018-04-12 05:26] LABS: Aspartate Aminotransferase 633 U/L (15-37); Potassium 4.7 meq/L (3.5-5.1)
[2018-04-12 05:39] LABS: Lymphocytes 13 % (9-44); Monocytes 9 % (0-8)
[2018-04-12 05:41] LABS: Platelet Estimate Normal (Normal); Platelet Morphology Normal (Normal); Stomatocytes 1+
[2018-04-12] MEDS: predniSONE 20 MG Tablet PO SCH ×2 (08:11→20:49)
[2018-04-12] MEDS: Senna/Docusate Sodium 8.6/50 MG Tablet PO SCH ×2 (08:12→20:54)
[2018-04-12] MEDS: Budesonide-Formoterol 160/4.5 MCG 6 GM Inhaler INH SCH ×2 (08:13→20:54)
--- NOTE | 2018-04-12 09:09 | P.PNFP ---
Subjective Interval history: Patient seen and examined. Feeling well this morning s/p liver biopsy. Denies active bleeding from biopsy site, headache, nausea, vomiting, chest pain, shortness of breath, or abdominal pain. state that she will look up GI specialists in [place], for outpatient follow up for when they return to [place]. <Nneka Norman Pearl - 04/12/18 18:44> Results - Labs Result diagrams: 04/12/18 04:19 04/12/18 04:19 <Ranjit Coleman - 04/12/18 20:00> Abnormal lab results 04/12/18 04/12/18 04/12/18 Range/Units 04:19 04:19 04:19 RBC 4.18 L (4.50-5.90) mil/mm3 Hct 37.3 L (39.0-51.0) % Lymph % (Auto) 65.0 H (9.0-44.0) % [place] % (Auto) 8.3 H (0.0-8.0) % Lymph # (Auto) 5.9 H (1.0-4.8) th/mm3 Seg Neuts % (Manual) 78 H (16-70) % Monocytes % (Manual) 9 H (0-8) % Stomatocytes 1+ H (None) Sodium 135 L (136-145) meq/L Estimated GFR 71 L (>89) mL/min Random Glucose 164 H (74-106) mg/dL Hemoglobin A1c 6.8 H (4.3-6.0) % Calcium 8.1 L (8.5-10.1) mg/dL Total Bilirubin 9.9 H (0.2-1.0) mg/dL AST 633 H (15-37) U/L ALT 959 H (12-78) U/L Alkaline Phosphatase 564 H (45-117) U/L Total Protein 6.2 L (6.4-8.2) g/dL Albumin 2.7 L (3.4-5.0) g/dL Triglycerides (42-150) mg/dL Cholesterol (120-200) mg/dL LDL Cholesterol, Calc (0-99) mg/dL HDL Cholesterol (40.0-60.0) mg/dL 04/12/18 Range/Units 04:19 RBC (4.50-5.90) mil/mm3 Hct (39.0-51.0) % Lymph % (Auto) (9.0-44.0) % [place] % (Auto) (0.0-8.0) % Lymph # (Auto) (1.0-4.8) th/mm3 Seg Neuts % (Manual) (16-70) % Monocytes % (Manual) (0-8) % Stomatocytes (None) Sodium (136-145) meq/L Estimated GFR (>89) mL/min Random Glucose (74-106) mg/dL Hemoglobin A1c (4.3-6.0) % Calcium (8.5-10.1) mg/dL Total Bilirubin (0.2-1.0) mg/dL AST (15-37) U/L ALT (12-78) U/L Alkaline Phosphatase (45-117) U/L Total Protein (6.4-8.2) g/dL Albumin (3.4-5.0) g/dL Triglycerides 168 H (42-150) mg/dL Cholesterol 525 H (120-200) mg/dL LDL Cholesterol, Calc 468 H (0-99) mg/dL HDL Cholesterol 23.4 L (40.0-60.0) mg/dL Short CBC 04/12/18 Range/Units 04:19 WBC 9.1 (4.0-11.0) th/mm3 Hgb 13.1 (13.0-17.0) gm/dL Hct 37.3 L (39.0-51.0) % Plt Count 277 (150-450) th/mm3 BMP 04/12/18 04:19 Sodium 135 L Potassium 4.7 Chloride 106 Carbon Dioxide 21.2 BUN 16 Creatinine 1.04 Calcium 8.1 L Liver Function 04/12/18 Range/Units 04:19 Total Bilirubin 9.9 H (0.2-1.0) mg/dL AST 633 H (15-37) U/L ALT 959 H (12-78) U/L Alkaline Phosphatase 564 H (45-117) U/L Albumin 2.7 L (3.4-5.0) g/dL <Ranjit Coleman - 04/12/18 20:00> Abnormal lab results 04/09/18 04/12/18 04/12/18 Range/Units 07:00 04:19 04:19 RBC 4.18 L (4.50-5.90) mil/mm3 Hct 37.3 L (39.0-51.0) % Lymph % (Auto) 65.0 H (9.0-44.0) % [place] % (Auto) 8.3 H (0.0-8.0) % Lymph # (Auto) 5.9 H (1.0-4.8) th/mm3 Seg Neuts % (Manual) 78 H (16-70) % Monocytes % (Manual) 9 H (0-8) % Stomatocytes 1+ H (None) Sodium 135 L (136-145) meq/L Estimated GFR 71 L (>89) mL/min Random Glucose 164 H (74-106) mg/dL Calcium 8.1 L (8.5-10.1) mg/dL Total Bilirubin 9.9 H (0.2-1.0) mg/dL AST 633 H (15-37) U/L ALT 959 H (12-78) U/L Alkaline Phosphatase 564 H (45-117) U/L Total Protein 6.2 L (6.4-8.2) g/dL Albumin 2.7 L (3.4-5.0) g/dL Ceruloplasmin 52 H (18-36) mg/dL Short CBC 04/12/18 Range/Units 04:19 WBC 9.1 (4.0-11.0) th/mm3 Hgb 13.1 (13.0-17.0) gm/dL Hct 37.3 L (39.0-51.0) % Plt Count 277 (150-450) th/mm3 BMP 04/12/18 04:19 Sodium 135 L Potassium 4.7 Chloride 106 Carbon Dioxide 21.2 BUN 16 Creatinine 1.04 Calcium 8.1 L Liver Function 04/12/18 Range/Units 04:19 Total Bilirubin 9.9 H (0.2-1.0) mg/dL AST 633 H (15-37) U/L ALT 959 H (12-78) U/L Alkaline Phosphatase 564 H (45-117) U/L Albumin 2.7 L (3.4-5.0) g/dL <Nneka Norman - 04/12/18 09:09> - Imaging Impressions Liver Biopsy CT 04/11/18 00:00 CONCLUSION: 1. Uncomplicated CT guided liver core biopsy. <Nneka Norman B - 04/12/18 09:09> Physical Exam Vital signs: Vital Signs 04/11/18 20:00 04/11/18 20:13 04/12/18 00:00 Temperature 98.1 F 98.7 F Pulse Rate 78 65 72 Respiratory Rate 18 17 17 Blood Pressure 134/67 139/67 Pulse Oximetry 92 L 93 L 04/12/18 03:57 04/12/18 07:00 04/12/18 08:00 Temperature 97.8 F Pulse Rate 70 76 70 Respiratory Rate 16 14 20 Blood Pressure 154/86 H Pulse Oximetry 94 L 04/12/18 11:00 04/12/18 11:35 04/12/18 15:00 Temperature 97.4 F L Pulse Rate 72 96 H 94 H Respiratory Rate 14 20 14 Blood Pressure 139/80 Pulse Oximetry 94 L 04/12/18 15:35 Temperature 98.0 F Pulse Rate 92 H Respiratory Rate 20 Blood Pressure 136/81 Pulse Oximetry 93 L Intake & Output 04/12/18 04/12/18 04/13/18 06:59 18:59 06:59 Intake Total 2225 / 2225 2850 / 2850 Output Total 4 / 4 Balance 2225 / 2225 2846 / 2846 Weight 101 kg Intake: IV 1650 / 1650 1450 / 1450 NS Inj 1,000 ML @ 145 mls/hr IV 1650 / 1650 1450 / 1450 .CONT .Q6H54M [facility] Rx#:[id number] Oral 575 / 575 1400 / 1400 Output: Stool 4 / 4 Other: # Voids 3 7 Date of Last Bowel Movement 04/07/18 04/12/18 # Bowel Movements 0 1 <Ranjit Coleman - 04/12/18 20:00> Vital Signs 04/11/18 11:00 04/11/18 12:00 04/11/18 14:40 Temperature 97.9 F 98.4 F Pulse Rate 72 71 64 Respiratory Rate 14 15 16 Blood Pressure 152/70 H 117/63 Pulse Oximetry 93 L 92 L 04/11/18 15:10 04/11/18 15:25 04/11/18 15:55 Temperature Pulse Rate 58 L 60 67 Respiratory Rate 16 16 16 Blood Pressure 116/66 120/62 128/46 L Pulse Oximetry 95 96 95 04/11/18 16:10 04/11/18 20:00 04/11/18 20:13 Temperature 98.2 F 98.1 F Pulse Rate 69 78 65 Respiratory Rate 17 18 17 Blood Pressure 132/75 134/67 Pulse Oximetry 95 92 L 04/12/18 00:00 04/12/18 03:57 04/12/18 07:00 Temperature 98.7 F Pulse Rate 72 70 76 Respiratory Rate 17 16 14 Blood Pressure 139/67 Pulse Oximetry 93 L 04/12/18 08:00 Temperature 97.8 F Pulse Rate 70 Respiratory Rate 20 Blood Pressure 154/86 H Pulse Oximetry 94 L Intake & Output 04/11/18 04/12/18 04/12/18 18:59 06:59 18:59 Intake Total 350 / 350 2225 / 2225 Balance 350 / 350 2225 / 2225 Weight 101 kg Intake: IV 350 / 350 1650 / 1650 NS Inj 1,000 ML @ 145 mls/hr IV 350 / 350 1650 / 1650 .CONT .Q6H54M [facility] Rx#:[id number] Oral 575 / 575 Other: # Voids 3 Date of Last Bowel Movement 04/07/18 # Bowel Movements 0 <Nneka Norman - 04/12/18 09:09> Narrative: GENERAL: Well-appearing 74-year-old male, sitting up in bed, in no acute distress. SKIN: Warm and dry. Clean, dry puncture today from liver biopsy yesterday. No active bleeding, erythema or induration. HEAD: Atraumatic. Normocephalic. EYES: EOMI. Mild scleral icterus. No injection or drainage. CARDIOVASCULAR: Regular rate and rhythm. No murmur appreciated. RESPIRATORY: No accessory muscle use. Clear to auscultation. Breath sounds equal bilaterally. GASTROINTESTINAL: Abdomen soft, nontender to palpation of the abdomen, nondistended. MUSCULOSKELETAL: No obvious deformities. No clubbing. No cyanosis. No edema. Full range of motion of the upper and lower extremities bilaterally. 2+ pulses bilaterally. NEUROLOGICAL: Awake and alert. No obvious cranial nerve deficits. Motor grossly within normal limits. Normal speech. PSYCHIATRIC: Appropriate mood and affect; insight and judgment normal. <Nneka Norman - 04/12/18 18:44> Assessment and Plan - Assessment (1) Hyperbilirubinemia Code(s): E80.6 - Other disorders of bilirubin metabolism Status: Acute (2) Transaminitis Code(s): R74.0 - Nonspecific elevation of levels of transaminase and lactic acid dehydrogenase [LDH] Status: Acute (3) Asthma Code(s): J45.909 - Unspecified asthma, uncomplicated Status: Acute (4) BPH (benign prostatic hyperplasia) Code(s): N40.0 - Benign prostatic hyperplasia without lower urinary tract symptoms Status: Acute (5) GERD (gastroesophageal reflux disease) Code(s): K21.9 - Gastro-esophageal reflux disease without esophagitis Status: Acute (6) YANG (acute kidney injury) Code(s): N17.9 - Acute kidney failure, unspecified Status: Resolved <Ranjit Coleman Jasbir - 04/12/18 20:00> (1) Hyperbilirubinemia Code(s): E80.6 - Other disorders of bilirubin metabolism Status: Acute Plan: Patient is elevation of both conjugated and unconjugated bilirubin, but conjugated is elevated over unconjugated. Differential diagnosis includes biliary obstruction, intrahepatic cholestasis, hepatocellular injury, hepatocellular defects of clavicular excretion or sinusoidal reuptake, others. -Total bilirubin: 7.0 to 7.6 conjugated/direct bilirubin: 5.2 to 6.3 unconjugated/indirect bilirubin: 1.8 to 1.5 -alkaline phosphatase, continue to increase -aminotransferases, continuing to increase -LDH: 364 -PT: 12.2, INR: 1.2, aPTT: 28.5, and albumin: 3.1, 3.0 -Hepatitis panel non-reactive -Right upper quadrant ultrasound showed: 1. Poorly visualized gallbladder. HIDA scan may help if cholecystitis is suspected. -ERCP showed 1. Mild hepatosplenomegaly. 2. Fatty liver. 3. Several tiny subcentimeter hepatic cysts. 4. No biliary ductal dilatation. 5. Degenerative changes and scoliosis of thoracolumbar spine. -HIDA scan showed . Suspected poor hepatic function with not only slow uptake of radiotracer from the blood stream but no activity identified in the common bile duct or small bowel. No active disease in the gallbladder which is markedly decompressed. (2) Transaminitis Code(s): R74.0 - Nonspecific elevation of levels of transaminase and lactic acid dehydrogenase [LDH] Status: Acute Plan: Continue to trend LFTs -aminotransferases, continue to increase -GGT 808 -Hepatitis panel nonreactive -Ferritin of 1011, iron 70, TIBC 237, percent saturation 29.6 -AFP, CEA, and CA 19-9 negative -JESSI, SMA , mitochondrial M2 negative -A1A elevated, hemochromatosis labs pending GI consulted: -Ordered liver immunology and HFE, pending -CT-guided biopsy of the liver performed yesterday. Results pending. (3) Asthma Code(s): J45.909 - Unspecified asthma, uncomplicated Status: Acute Plan: Patient required Solu-Medrol and breathing treatments in the emergency department. -Continue prednisone 20 mg p.o. bid -Continue to alternate albuterol nebs and duo nebs -Continue home medication montelukast -Continue home Symbicort 2 puffs twice daily (4) BPH (benign prostatic hyperplasia) Code(s): N40.0 - Benign prostatic hyperplasia without lower urinary tract symptoms Status: Acute Plan: -Continue home medication of tamsulosin (5) GERD (gastroesophageal reflux disease) Code(s): K21.9 - Gastro-esophageal reflux disease without esophagitis Status: Acute Plan: -Continue home medication of omeprazole with pharmacy replacement -Given TUMS overnight (6) YANG (acute kidney injury) Code(s): N17.9 - Acute kidney failure, unspecified Status: Resolved Plan: Unclear if YANG or CKD. Likely prerenal YANG based on the history. -Continue IV fluid hydration -Continue to monitor <Nneka Norman - 04/12/18 18:40> - Assessment and Plan Patient is a 72 yo M with hx of asthma, borderline DM, GERD, and BPH who presents with 2 weeks of asthma exacerbation and almost a week of abdominal pain after eating, white stools, lack of appetite with associate fever and chills, found to have hyperbilirubinemia, transaminitis, YANG, on top of his asthma exacerbation. Plan to admit patient to workup this problem with extensive labs and imaging while treating his asthma exacerbation with steroids and breathing treatments. FEN/ppx: Fluids: Maintenance IV fluids Electrolytes: Monitor and replete Nutrition: Regular basic diet as tolerated DVT prophylaxis: Lovenox 40 mg subcu daily GI prophylaxis: Continue patient home medication of PPI dw Dr. Coleman and Dr. Lopez <Nneka Norman - 04/12/18 18:44> Discharge Planning: Discharge per GI clearance. <Nneka Norman - 04/12/18 18:44> - Attending Attestation The exam, history, and the medical decision-making described in the above note were completed with the assistance of the resident physician. I reviewed and agree with the findings presented. I attest that I had a [id number]-mi-zwec encounter with the patient on the same day, and personally performed and documented my assessment and findings in the medical record. labs and icterus increasing, no new symptoms. still waiting biopsy result. GI consulting ID for atypical hepatitis work up, cmv and hsv now ordered. with up trending labs will remain for continued work up <Ranjit Coleman - 04/12/18 20:00>
--- NOTE | 2018-04-12 16:58 | P.PNGI ---
Subjective Interval history: Patient awake and alert Sitting on bedside Spouse present Status post liver biopsy No complaints offered <Harrell,Itzel - Last Filed: 04/12/18 16:51> Physical Exam Vital signs: Vital Signs 04/11/18 20:00 04/11/18 20:13 04/12/18 00:00 Temperature 98.1 F 98.7 F Pulse Rate 78 65 72 Respiratory Rate 18 17 17 Blood Pressure 134/67 139/67 Pulse Oximetry 92 L 93 L 04/12/18 03:57 04/12/18 07:00 04/12/18 08:00 Temperature 97.8 F Pulse Rate 70 76 70 Respiratory Rate 16 14 20 Blood Pressure 154/86 H Pulse Oximetry 94 L 04/12/18 11:00 04/12/18 11:35 04/12/18 15:00 Temperature 97.4 F L Pulse Rate 72 96 H 94 H Respiratory Rate 14 20 14 Blood Pressure 139/80 Pulse Oximetry 94 L 04/12/18 15:35 Temperature 98.0 F Pulse Rate 92 H Respiratory Rate 20 Blood Pressure 136/81 Pulse Oximetry 93 L Intake & Output 04/11/18 04/12/18 04/12/18 18:59 06:59 18:59 Intake Total 350 / 350 2225 / 2225 1000 / 1000 Balance 350 / 350 2225 / 2225 1000 / 1000 Weight 101 kg Intake: IV 350 / 350 1650 / 1650 1000 / 1000 NS Inj 1,000 ML @ 145 mls/hr IV 350 / 350 1650 / 1650 1000 / 1000 .CONT .Q6H54M [facility] Rx#:[id number] Oral 575 / 575 Other: # Voids 3 Date of Last Bowel Movement 04/07/18 04/07/18 # Bowel Movements 0 - Constitutional no acute distress, cooperative - Routine HEENT Exam Eye: Present: conjunctival icterus - Routine Respiratory Exam Absent: accessory muscle use - Routine Abdominal Exam Present: soft, normoactive bowel sounds. Absent: tenderness, distended, firm - Routine Extremities Exam Absent: edema - Routine Skin Exam Present: dry, warm, jaundice - Routine Neurological Exam Present: alert, oriented X3 - Routine Psychiatric Exam Present: normal affect, cooperative <Harrell,Itzel - Last Filed: 04/12/18 16:51> Vital signs: Vital Signs 04/12/18 11:00 04/12/18 11:35 04/12/18 15:00 Temperature 97.4 F L Pulse Rate 72 96 H 94 H Respiratory Rate 14 20 14 Blood Pressure 139/80 Pulse Oximetry 94 L 04/12/18 15:35 04/12/18 20:00 04/12/18 20:02 Temperature 98.0 F 97.8 F Pulse Rate 92 H 84 71 Respiratory Rate 20 18 18 Blood Pressure 136/81 143/77 H Pulse Oximetry 93 L 96 96 04/13/18 00:00 04/13/18 02:03 04/13/18 04:00 Temperature 98.1 F 97.4 F L Pulse Rate 76 71 76 Respiratory Rate 20 18 Blood Pressure 173/81 H 165/80 H 153/91 H Pulse Oximetry 95 95 04/13/18 08:00 04/13/18 09:31 Temperature 97.6 F Pulse Rate 67 Respiratory Rate 20 Blood Pressure 148/78 H Pulse Oximetry 95 95 Intake & Output 04/12/18 04/13/18 04/13/18 18:59 06:59 18:59 Intake Total 2850 / 2850 1920 / 1920 Output Total 4 / 4 Balance 2846 / 2846 1920 / 1920 Weight 100.6 kg Intake: IV 1450 / 1450 1550 / 1550 NS Inj 1,000 ML @ 145 mls/hr IV 1450 / 1450 1550 / 1550 .CONT .Q6H54M [facility] Rx#:[id number] Oral 1400 / 1400 370 / 370 Output: Stool 4 / 4 Other: # Voids 7 3 Date of Last Bowel Movement 04/07/18 04/12/18 # Bowel Movements 4 <Otf Copeland - Last Filed: 04/13/18 09:57> Results - Labs CBC & Chem 7: 04/12/18 04:19 04/12/18 04:19 Laboratory Results - last 24 hr 04/09/18 04/12/18 04/12/18 07:00 04:19 04:19 WBC 9.1 RBC 4.18 L Hgb 13.1 Hct 37.3 L MCV 89.1 MCH 31.3 MCHC 35.1 RDW 15.6 Plt Count 277 MPV 9.1 Prelim Diff (Auto) Slide review pending Neut % (Auto) 25.0 Lymph % (Auto) 65.0 H Benzie % (Auto) 8.3 H Eos % (Auto) 0.7 Baso % (Auto) 1.0 Neut # (Auto) 2.3 Lymph # (Auto) 5.9 H Benzie # (Auto) 0.8 Eos # (Auto) 0.1 Baso # (Auto) 0.1 WBC Differential Manual diff final Seg Neuts % (Manual) 78 H Lymphocytes % (Manual) 13 Monocytes % (Manual) 9 H Abs Neuts (Manual) 7.1 Differential Comment . Platelet Estimate Normal Platelet Morphology Normal Stomatocytes 1+ H Sodium 135 L Potassium 4.7 Chloride 106 Carbon Dioxide 21.2 Anion Gap 8 BUN 16 Creatinine 1.04 Estimated GFR 71 L Random Glucose 164 H Calcium 8.1 L Total Bilirubin 9.9 H AST 633 H ALT 959 H Alkaline Phosphatase 564 H Total Protein 6.2 L Albumin 2.7 L Ceruloplasmin 52 H <Itzel Harrell - Last Filed: 04/12/18 16:51> - Labs CBC & Chem 7: 04/13/18 04:59 04/13/18 04:59 Laboratory Results - last 24 hr 04/12/18 04/12/18 04/13/18 04:19 04:19 04:59 WBC 12.2 H RBC 4.41 L Hgb 13.8 Hct 39.2 MCV 89.1 MCH 31.4 MCHC 35.3 RDW 15.7 Plt Count 293 MPV 9.4 Sodium Potassium Chloride Carbon Dioxide Anion Gap BUN Creatinine Estimated GFR Random Glucose Hemoglobin A1c 6.8 H Calcium Total Bilirubin AST ALT Alkaline Phosphatase Total Protein Albumin Triglycerides 168 H Cholesterol 525 H LDL Cholesterol, Calc 468 H HDL Cholesterol 23.4 L Cholesterol/HDL Ratio 22.43 TSH 04/13/18 04/13/18 04:59 04:59 WBC RBC Hgb Hct MCV MCH MCHC RDW Plt Count MPV Sodium 136 Potassium 4.1 Chloride 106 Carbon Dioxide 20.7 L Anion Gap 9 BUN 21 H Creatinine 1.23 Estimated GFR 58 L Random Glucose 126 H Hemoglobin A1c Calcium 8.4 L Total Bilirubin 9.9 H AST 634 H ALT 1230 H Alkaline Phosphatase 685 H Total Protein 6.6 Albumin 3.0 L Triglycerides Cholesterol LDL Cholesterol, Calc HDL Cholesterol Cholesterol/HDL Ratio TSH 2.030 <Otf Copeland - Last Filed: 04/13/18 09:57> Assessment and Plan (1) Biliary obstruction Status: Acute Code(s): K83.1 - Obstruction of bile duct (2) Hyperbilirubinemia Status: Acute Code(s): E80.6 - Other disorders of bilirubin metabolism (3) Transaminitis Status: Acute Code(s): R74.0 - Nonspecific elevation of levels of transaminase and lactic acid dehydrogenase [LDH] - Plan Patient seen earlier today. This patient is a 72-year-old male with past medical history significant for asthma, GERD, diabetes and BPH. Surgical history significant for shoulder history, back surgery, tonsillectomy and wrist surgery. Patient presented to [facility] with report of 10-day history of right upper quadrant sharp pain that radiated to epigastric area with nausea. Patient also endorses poor appetite. Upon arrival, patient was noted to have elevated transaminases. Patient reports subjective fevers denies chills. Our service has been consulted to evaluate patient for possible biliary obstruction. Transaminitis Hyperbilirubinemia Jaundice 04/09/2018 HIDA scan:. Suspected poor hepatic function with not only slow uptake of radiotracer from the blood stream but no activity identified in the common bile duct or small bowel. No active disease in the gallbladder which is markedly decompressed. I reviewed the recent CT scan without evidence of biliary dilatation, pancreatic mass, or any other cause for common bile duct obstruction. 04/08/2018 gallbladder ultrasound:. Poorly visualized gallbladder. HIDA scan may help if cholecystitis is suspected. 04/08/2018 MRCP: Mild hepatosplenomegaly. Fatty liver. Several tiny subcentimeter hepatic cysts. No biliary ductal dilatation. Degenerative changes and scoliosis of thoracolumbar spine. WBC 7.9 hemoglobin 14 hematocrit 40 platelet count 220 INR 1.2 Total bilirubin 7.8 AST 301 ALT 447 alk phos 618 GGT 808 Hepatitis panel nonreactive 04/10/2018 Assessment Fatty liver Elevated transaminases Elevated alkaline phosphatase Patient agrees to do CT-guided biopsy of the liver in light of increasing transaminases Today's lab hematocrit 37.6 hemoglobin 13.1 AST 534 ALT 568 alkaline phosphatase 556 04/11/2018 Transaminitis Elevated alk phos without evidence of biliary duct obstruction Hepatic steatosis Patient denies abdominal pain nausea vomiting awaiting CT guided liver biopsy Hemoglobin 13.3 hematocrit 37.9 Tumor marker AFP 1.8 total bilirubin 9.5 AST 654 ALT 815 alk phos 595 trending upward 04/12/2018 Transaminitis Elevated alk phos without evidence of biliary obstruction per MRCP-- Hepatic steatosis Possible atypical hepatitis Patient denies abdominal pain nausea or vomiting. Post CT-guided liver biopsy WBC 9.1 hemoglobin 13.1 hematocrit 37.3 Total bilirubin 9.9 AST 633 ALT 959 alk phos 564 trending upwards Patient denies use of herbal supplements, injectable medications, testosterone supplements Plan -Cardiac diet -Serum immunology pending -CMV, HSV -Lipid panel -Hemoglobin A1c -HFE hemochromatosis workup pending -Avoid hepatotoxins -Monitor labs Infectious disease consult to rule out atypical hepatitis Supportive care Further recommendations to follow This patient has been seen by myself and Dr. Copeland and this note is written on his behalf - Attending Attestation Dr. Copeland <Itzel Harrell - Last Filed: 04/12/18 16:51> (1) Biliary obstruction Status: Acute Code(s): K83.1 - Obstruction of bile duct (2) Hyperbilirubinemia Status: Acute Code(s): E80.6 - Other disorders of bilirubin metabolism (3) Transaminitis Status: Acute Code(s): R74.0 - Nonspecific elevation of levels of transaminase and lactic acid dehydrogenase [LDH] - Attending Attestation I have seen and examined the patient and reviewed the relevant portions of the chart and discussed the patient's current complaints, results and findings with the [employer]. We have reviewed the therapeutic plan for the patient. I agree with the above assessment and recommendations as documented above. <Otf Copeland - Last Filed: 04/13/18 09:57>
[2018-04-12 17:45] LABS: Hemoglobin A1c 6.8 % (4.3-6.0)
[2018-04-12] MEDS: Montelukast 10 MG Tablet PO SCH (17:56)
[2018-04-12] MEDS: Enoxaparin Inj 40 MG/0.4 ML Syringe SQ SCH (17:56)
[2018-04-12 18:08] LABS: Chol/HDL Ratio 22.43 Ratio; HDL Cholesterol 23.4 mg/dL (40.0-60.0)
[2018-04-12] MEDS: Latanoprost 0.005% Opth Drops 2.5 ML Bottle EACH EYE SCH (20:53)
[2018-04-13] MEDS: Sod Chloride 0.9% Inj 1,000 ML IV.CONT SCH (04:17)
[2018-04-13 05:46] LABS: Hematocrit 39.2 % (39.0-51.0); Hemoglobin 13.8 gm/dL (13.0-17.0); Mean Corpuscular HGB Conc 35.3 % (32.0-36.0); Mean Corpuscular Hemoglobin 31.4 pg (27.0-34.0); Mean Corpuscular Volume 89.1 fL (80.0-100.0); Mean Platelet Volume 9.4 fL (7.0-11.0); Platelet Count 293 th/mm3 (150-450); Red Blood Count 4.41 mil/mm3 (4.50-5.90); Red Cell Distribution Width 15.7 % (11.6-17.2); White Blood Count 12.2 th/mm3 (4.0-11.0)
[2018-04-13 06:06] LABS: Anion Gap 9 meq/L (5-15); Aspartate Aminotransferase 634 U/L (15-37); Blood Urea Nitrogen 21 mg/dL (7-18); Calcium 8.4 mg/dL (8.5-10.1); Carbon Dioxide 20.7 meq/L (21.0-32.0); Chloride 106 meq/L (98-107); Glomerular Filtration Rate 58 mL/min (>89); Glucose,Random 126 mg/dL (74-106); Potassium 4.1 meq/L (3.5-5.1); Sodium 136 meq/L (136-145)
[2018-04-13 06:13] LABS: Alanine Aminotransferase 1230 U/L (12-78); Alkaline Phosphatase 685 U/L (45-117); Total Protein 6.6 g/dL (6.4-8.2)
--- NOTE | 2018-04-13 08:16 | P.PNFP ---
Subjective Interval history: Patient complains of itching on and off since before coming to the hospital but reports that itching was bad overnight. He reports that Benadryl causes agitation. Thus, we decided to attempt to treat his itchiness with hydroxyzine. Patient reports that his stomach stomach felt hot/warm over epigastrium. He also complains of hemorrhoids and diarrhea, no fever, no blood , started yesterday, several times a day loose and soft. No melena or hematochezia <Gab NicoleRanjit - 04/13/18 11:29> Results - Labs Result diagrams: 04/13/18 04:59 04/13/18 04:59 <JaredRanjit Jasbir - 04/13/18 11:39> Abnormal lab results 04/12/18 04/12/18 04/13/18 Range/Units 04:19 04:19 04:59 WBC 12.2 H (4.0-11.0) th/mm3 RBC 4.41 L (4.50-5.90) mil/mm3 Carbon Dioxide (21.0-32.0) meq/L BUN (7-18) mg/dL Estimated GFR (>89) mL/min Random Glucose (74-106) mg/dL Hemoglobin A1c 6.8 H (4.3-6.0) % Calcium (8.5-10.1) mg/dL Total Bilirubin (0.2-1.0) mg/dL AST (15-37) U/L ALT (12-78) U/L Alkaline Phosphatase (45-117) U/L Albumin (3.4-5.0) g/dL Triglycerides 168 H (42-150) mg/dL Cholesterol 525 H (120-200) mg/dL LDL Cholesterol, Calc 468 H (0-99) mg/dL HDL Cholesterol 23.4 L (40.0-60.0) mg/dL 04/13/18 Range/Units 04:59 WBC (4.0-11.0) th/mm3 RBC (4.50-5.90) mil/mm3 Carbon Dioxide 20.7 L (21.0-32.0) meq/L BUN 21 H (7-18) mg/dL Estimated GFR 58 L (>89) mL/min Random Glucose 126 H (74-106) mg/dL Hemoglobin A1c (4.3-6.0) % Calcium 8.4 L (8.5-10.1) mg/dL Total Bilirubin 9.9 H (0.2-1.0) mg/dL AST 634 H (15-37) U/L ALT 1230 H (12-78) U/L Alkaline Phosphatase 685 H (45-117) U/L Albumin 3.0 L (3.4-5.0) g/dL Triglycerides (42-150) mg/dL Cholesterol (120-200) mg/dL LDL Cholesterol, Calc (0-99) mg/dL HDL Cholesterol (40.0-60.0) mg/dL Short CBC 04/13/18 Range/Units 04:59 WBC 12.2 H (4.0-11.0) th/mm3 Hgb 13.8 (13.0-17.0) gm/dL Hct 39.2 (39.0-51.0) % Plt Count 293 (150-450) th/mm3 BMP 04/13/18 04:59 Sodium 136 Potassium 4.1 Chloride 106 Carbon Dioxide 20.7 L BUN 21 H Creatinine 1.23 Calcium 8.4 L Liver Function 04/13/18 Range/Units 04:59 Total Bilirubin 9.9 H (0.2-1.0) mg/dL AST 634 H (15-37) U/L ALT 1230 H (12-78) U/L Alkaline Phosphatase 685 H (45-117) U/L Albumin 3.0 L (3.4-5.0) g/dL <Ranjit Coleman K - 04/13/18 11:39> Abnormal lab results 04/12/18 04/12/18 04/13/18 Range/Units 04:19 04:19 04:59 WBC 12.2 H (4.0-11.0) th/mm3 RBC 4.41 L (4.50-5.90) mil/mm3 Carbon Dioxide (21.0-32.0) meq/L BUN (7-18) mg/dL Estimated GFR (>89) mL/min Random Glucose (74-106) mg/dL Hemoglobin A1c 6.8 H (4.3-6.0) % Calcium (8.5-10.1) mg/dL Total Bilirubin (0.2-1.0) mg/dL AST (15-37) U/L ALT (12-78) U/L Alkaline Phosphatase (45-117) U/L Albumin (3.4-5.0) g/dL Triglycerides 168 H (42-150) mg/dL Cholesterol 525 H (120-200) mg/dL LDL Cholesterol, Calc 468 H (0-99) mg/dL HDL Cholesterol 23.4 L (40.0-60.0) mg/dL 04/13/18 Range/Units 04:59 WBC (4.0-11.0) th/mm3 RBC (4.50-5.90) mil/mm3 Carbon Dioxide 20.7 L (21.0-32.0) meq/L BUN 21 H (7-18) mg/dL Estimated GFR 58 L (>89) mL/min Random Glucose 126 H (74-106) mg/dL Hemoglobin A1c (4.3-6.0) % Calcium 8.4 L (8.5-10.1) mg/dL Total Bilirubin 9.9 H (0.2-1.0) mg/dL AST 634 H (15-37) U/L ALT 1230 H (12-78) U/L Alkaline Phosphatase 685 H (45-117) U/L Albumin 3.0 L (3.4-5.0) g/dL Triglycerides (42-150) mg/dL Cholesterol (120-200) mg/dL LDL Cholesterol, Calc (0-99) mg/dL HDL Cholesterol (40.0-60.0) mg/dL Short CBC 04/13/18 Range/Units 04:59 WBC 12.2 H (4.0-11.0) th/mm3 Hgb 13.8 (13.0-17.0) gm/dL Hct 39.2 (39.0-51.0) % Plt Count 293 (150-450) th/mm3 BMP 04/13/18 04:59 Sodium 136 Potassium 4.1 Chloride 106 Carbon Dioxide 20.7 L BUN 21 H Creatinine 1.23 Calcium 8.4 L Liver Function 04/13/18 Range/Units 04:59 Total Bilirubin 9.9 H (0.2-1.0) mg/dL AST 634 H (15-37) U/L ALT 1230 H (12-78) U/L Alkaline Phosphatase 685 H (45-117) U/L Albumin 3.0 L (3.4-5.0) g/dL <Gab NicoleRanjitAbimael - 04/13/18 08:16> Physical Exam Vital signs: Vital Signs 04/12/18 15:00 04/12/18 15:35 04/12/18 20:00 Temperature 98.0 F 97.8 F Pulse Rate 94 H 92 H 84 Respiratory Rate 14 20 18 Blood Pressure 136/81 143/77 H Pulse Oximetry 93 L 96 04/12/18 20:02 04/13/18 00:00 04/13/18 02:03 Temperature 98.1 F Pulse Rate 71 76 71 Respiratory Rate 18 20 Blood Pressure 173/81 H 165/80 H Pulse Oximetry 96 95 04/13/18 04:00 04/13/18 08:00 04/13/18 09:31 Temperature 97.4 F L 97.6 F Pulse Rate 76 67 Respiratory Rate 18 20 Blood Pressure 153/91 H 148/78 H Pulse Oximetry 95 95 95 Intake & Output 04/12/18 04/13/18 04/13/18 18:59 06:59 18:59 Intake Total 2850 / 2850 1920 / 1920 Output Total 4 / 4 Balance 2846 / 2846 1920 / 1920 Weight 100.6 kg Intake: IV 1450 / 1450 1550 / 1550 NS Inj 1,000 ML @ 145 mls/hr IV 1450 / 1450 1550 / 1550 .CONT .Q6H54M [facility] Rx#:[id number] Oral 1400 / 1400 370 / 370 Output: Stool 4 / 4 Other: # Voids 7 3 Date of Last Bowel Movement 04/07/18 04/12/18 04/13/18 # Bowel Movements 4 <Ranjit Coleman K - 04/13/18 11:39> Vital Signs 04/12/18 11:00 04/12/18 11:35 04/12/18 15:00 Temperature 97.4 F L Pulse Rate 72 96 H 94 H Respiratory Rate 14 20 14 Blood Pressure 139/80 Pulse Oximetry 94 L 04/12/18 15:35 04/12/18 20:00 04/12/18 20:02 Temperature 98.0 F 97.8 F Pulse Rate 92 H 84 71 Respiratory Rate 20 18 18 Blood Pressure 136/81 143/77 H Pulse Oximetry 93 L 96 96 04/13/18 00:00 03/02/19 02:03 04/13/18 04:00 Temperature 98.1 F 97.4 F L Pulse Rate 76 71 76 Respiratory Rate 20 18 Blood Pressure 173/81 H 165/80 H 153/91 H Pulse Oximetry 95 95 Intake & Output 04/12/18 04/13/18 04/13/18 18:59 06:59 18:59 Intake Total 2850 / 2850 1919 / 0 Output Total Balance 2846 / 2846 1919 / 1919 Weight 100.6 kg Intake: IV 1450 / 1450 1550 / 1550 NS Inj 1,000 ML @ 145 mls/hr IV 1450 / 1450 1550 / 1550 .CONT .Q6H54M [facility] Rx#:[id number] Oral 1400 / 1400 370 / 370 Output: Stool Other: # Voids 7 3 Date of Last Bowel Movement 04/07/18 04/12/18 # Bowel Movements 4 <Gab NicoleRanjit Jolley - 04/13/18 08:16> Narrative: GENERAL: Well-appearing 74-year-old male, sitting up in bed, in no acute distress. SKIN: Warm and dry. Clean, dry puncture from liver biopsy with no signs of infection, No active bleeding, erythema or induration. HEAD: Atraumatic. Normocephalic. EYES: EOMI. + scleral icterus. No injection or drainage. CARDIOVASCULAR: Regular rate and rhythm. No murmur appreciated. RESPIRATORY: No accessory muscle use. Clear to auscultation. Breath sounds equal bilaterally. GASTROINTESTINAL: Abdomen soft, nontender to palpation of the abdomen, nondistended. MUSCULOSKELETAL: No obvious deformities. No clubbing. No cyanosis. No edema. NEUROLOGICAL: Awake and alert. No obvious cranial nerve deficits. Motor grossly within normal limits. Normal speech. PSYCHIATRIC: Appropriate mood and affect; insight and judgment normal. <Gab NicoleRanjit Jolley - 04/13/18 11:29> Assessment and Plan - Assessment (1) Hyperbilirubinemia Code(s): E80.6 - Other disorders of bilirubin metabolism Status: Acute (2) Transaminitis Code(s): R74.0 - Nonspecific elevation of levels of transaminase and lactic acid dehydrogenase [LDH] Status: Acute (3) Asthma Code(s): J45.909 - Unspecified asthma, uncomplicated Status: Acute (4) BPH (benign prostatic hyperplasia) Code(s): N40.0 - Benign prostatic hyperplasia without lower urinary tract symptoms Status: Acute (5) GERD (gastroesophageal reflux disease) Code(s): K21.9 - Gastro-esophageal reflux disease without esophagitis Status: Acute (6) YANG (acute kidney injury) Code(s): N17.9 - Acute kidney failure, unspecified Status: Resolved (7) Itching Code(s): L29.9 - Pruritus, unspecified Status: Acute (8) Diarrhea Code(s): R19.7 - Diarrhea, unspecified Status: Acute (9) Hemorrhoids Code(s): K64.9 - Unspecified hemorrhoids Status: Acute <Ranjit Coleman Jasbir - 04/13/18 11:39> (1) Hyperbilirubinemia Code(s): E80.6 - Other disorders of bilirubin metabolism Status: Acute Plan: Patient is elevation of both conjugated and unconjugated bilirubin, but conjugated is elevated over unconjugated. Differential diagnosis includes biliary obstruction, intrahepatic cholestasis, hepatocellular injury, hepatocellular defects of canalicular excretion or sinusoidal reuptake, others. -Total bilirubin trending up, both conjugated and unconjugated hyperbilirubinemia with predominantly conjugated/direct bilirubin -alkaline phosphatases continues to increase -aminotransferases, continuing to increase -LDH: 364 -Coags unremarkable, albumin only mildly low -Hepatitis panel non-reactive -Right upper quadrant ultrasound showed: 1. Poorly visualized gallbladder. HIDA scan may help if cholecystitis is suspected. -ERCP showed 1. Mild hepatosplenomegaly. 2. Fatty liver. 3. Several tiny subcentimeter hepatic cysts. 4. No biliary ductal dilatation. 5. Degenerative changes and scoliosis of thoracolumbar spine. -HIDA scan showed: Suspected poor hepatic function with not only slow uptake of radiotracer from the blood stream but no activity identified in the common bile duct or small bowel. No active disease in the gallbladder which is markedly decompressed. -Antimitochondrial antibody pending to evaluate for primary biliary cholangitis. -GI consult appreciated as below: Plan -Cardiac diet -Stool studies -Add Cholestyramine -Await rest of immunology -Await CMV, HSV -HFE hemochromatosis workup pending -Avoid hepatotoxins -Await liver bx -Monitor labs -Infectious disease consult to rule out atypical hepatitis -Supportive care -Further recommendations to follow (2) Transaminitis Code(s): R74.0 - Nonspecific elevation of levels of transaminase and lactic acid dehydrogenase [LDH] Status: Acute Plan: Continue to trend LFTs -aminotransferases continue to increase -GGT elevated at 808 -Hepatitis panel nonreactive -Ferritin of 1011, iron 70, TIBC 237, percent saturation 29.6 -AFP, CEA, and CA 19-9 negative -JESSI, anti-smooth muscle antibody negative -A1A elevated, hemochromatosis labs pending GI consulted: -Ordered liver immunology and HFE, pending -CT-guided biopsy of the liver performed on 04/11/18. Results pending. (3) Asthma Code(s): J45.909 - Unspecified asthma, uncomplicated Status: Acute Plan: Patient required Solu-Medrol and breathing treatments in the emergency department. -Patient has been on prednisone 20 mg p.o. bid from 04/09 until 04/12; today is last day of prednisone 40 mg p.o. daily, will begin prednisone taper tomorrow. -Continue to alternate albuterol nebs and duo nebs -Continue home medication montelukast -Continue home Symbicort 2 puffs twice daily (4) BPH (benign prostatic hyperplasia) Code(s): N40.0 - Benign prostatic hyperplasia without lower urinary tract symptoms Status: Acute Plan: -Continue home medication of tamsulosin (5) GERD (gastroesophageal reflux disease) Code(s): K21.9 - Gastro-esophageal reflux disease without esophagitis Status: Acute Plan: -Continue home medication of omeprazole with pharmacy replacement -Tums po bid (6) YANG (acute kidney injury) Code(s): N17.9 - Acute kidney failure, unspecified Status: Resolved Plan: Resolved. -Stop IV fluid hydration -Continue to monitor (7) Itching Code(s): L29.9 - Pruritus, unspecified Status: Acute Plan: -Hydroxyzine 25 mg p.o. every 6 hours as needed for itching (8) Diarrhea Code(s): R19.7 - Diarrhea, unspecified Status: Acute Plan: -Loperamide 4 mg p.o. once this morning -Cholestyramine 4 g p.o. twice daily, per GI (9) Hemorrhoids Code(s): K64.9 - Unspecified hemorrhoids Status: Acute Plan: -Preparation H topically to rectum every 6 hours as needed <Gab NicoleRanjit - 04/13/18 11:03> - Assessment and Plan Patient is a 72 yo M with hx of asthma, borderline DM, GERD, and BPH who presented with 2 weeks of asthma exacerbation and almost a week of abdominal pain after eating, white stools, lack of appetite with associated fever and chills, found to have hyperbilirubinemia, transaminitis, which have been getting worse, YANG that resolved, on top of his asthma exacerbation. Plan to admit patient to workup this problem with extensive labs and imaging with GI and ID consults. Also, treating his asthma exacerbation with steroids and breathing treatments. FEN/ppx: Fluids: Stop Maintenance IV fluids Electrolytes: Monitor and replete Nutrition: Regular basic diet as tolerated DVT prophylaxis: Lovenox 40 mg subcu daily GI prophylaxis: Continue patient home medication of PPI dw Dr. Coleman and Dr. Self <Ranjit Jenkins - 04/13/18 11:29> - Attending Attestation The exam, history, and the medical decision-making described in the above note were completed with the assistance of the resident physician. I reviewed and agree with the findings presented. I attest that I had a [id number] encounter with the patient on the same day, and personally performed and documented my assessment and findings in the medical record. c/o itching and now some diarrhea today. initial stool studies negative, sending again cholestyramine and hydroxyzine for pruritis unfortunately no new answers, but ID consulted by GI to look for any other infectious hepatitis causes unfortunately no new answers. biopsy results pending will need to discuss with GI. <Ranjit Coleman - 04/13/18 11:39>
[2018-04-13] MEDS ORDERED: PHENYLEPHRINE RECTAL PRN (08:17)
[2018-04-13] MEDS ORDERED: PETROLATUM RECTAL PRN (08:17)
[2018-04-13] MEDS ORDERED: MINERAL OIL RECTAL PRN (08:17)
[2018-04-13] MEDS ORDERED: Loperamide 2 MG Capsule PO PRN (08:20)
[2018-04-13] MEDS: predniSONE 20 MG Tablet PO SCH ×2 (08:55→21:02)
[2018-04-13] MEDS: Senna/Docusate Sodium 8.6/50 MG Tablet PO SCH ×2 (08:56→21:03)
[2018-04-13] MEDS: Budesonide-Formoterol 160/4.5 MCG 6 GM Inhaler INH SCH ×2 (08:57→21:07)
[2018-04-13] MEDS ORDERED: Loperamide 2 MG Capsule PO ONE (09:00)
--- NOTE | 2018-04-13 09:08 | P.PNGI ---
Subjective Interval history: Pt was using the rest room when I walked in. at bed side. Patient endorses diarrhea started yesterday, several times a day loose and soft. No bleeding. some warm feeling in upper abd. C/O itching. No melena or hematochezia <Shira Andrews - Last Filed: 04/13/18 10:45> Physical Exam Vital signs: Vital Signs 04/12/18 11:00 04/12/18 11:35 04/12/18 15:00 Temperature 97.4 F L Pulse Rate 72 96 H 94 H Respiratory Rate 14 20 14 Blood Pressure 139/80 Pulse Oximetry 94 L 04/12/18 15:35 04/12/18 20:00 04/12/18 20:02 Temperature 98.0 F 97.8 F Pulse Rate 92 H 84 71 Respiratory Rate 20 18 18 Blood Pressure 136/81 143/77 H Pulse Oximetry 93 L 96 96 04/13/18 00:00 04/13/18 02:03 04/13/18 04:00 Temperature 98.1 F 97.4 F L Pulse Rate 76 71 76 Respiratory Rate 20 18 Blood Pressure 173/81 H 165/80 H 153/91 H Pulse Oximetry 95 95 04/13/18 08:00 Temperature 97.6 F Pulse Rate 67 Respiratory Rate 20 Blood Pressure 148/78 H Pulse Oximetry 95 Intake & Output 04/12/18 04/13/18 04/13/18 18:59 06:59 18:59 Intake Total 2850 / 2850 1920 / 1920 Output Total 4 / 4 Balance 2846 / 2846 1920 / 1920 Weight 100.6 kg Intake: IV 1450 / 1450 1550 / 1550 NS Inj 1,000 ML @ 145 mls/hr IV 1450 / 1450 1550 / 1550 .CONT .Q6H54M [facility] Rx#:[id number] Oral 1400 / 1400 370 / 370 Output: Stool 4 / 4 Other: # Voids 7 3 Date of Last Bowel Movement 04/07/18 04/12/18 # Bowel Movements 4 Narrative: GENERAL: Well-appearing 74-year-old male, in no acute distress. SKIN: Warm and dry. HEAD: Atraumatic. Normocephalic. EYES: EOMI. scleral icterus. No injection or drainage. CARDIOVASCULAR: Regular rate and rhythm. No murmur appreciated. RESPIRATORY: No accessory muscle use. Clear to auscultation. Breath sounds equal bilaterally. GASTROINTESTINAL: Abdomen soft, nontender to palpation of the abdomen, nondistended. MUSCULOSKELETAL: No obvious deformities. No clubbing. No cyanosis. No edema. NEUROLOGICAL: Awake and alert. No obvious cranial nerve deficits. PSYCHIATRIC: Appropriate mood and affect; insight and judgment normal. <Shira Andrews - Last Filed: 04/13/18 10:45> Vital signs: Vital Signs 04/12/18 15:00 04/12/18 15:35 04/12/18 20:00 Temperature 98.0 F 97.8 F Pulse Rate 94 H 92 H 84 Respiratory Rate 14 20 18 Blood Pressure 136/81 143/77 H Pulse Oximetry 93 L 96 04/12/18 20:02 04/13/18 00:00 04/13/18 02:03 Temperature 98.1 F Pulse Rate 71 76 71 Respiratory Rate 18 20 Blood Pressure 173/81 H 165/80 H Pulse Oximetry 96 95 04/13/18 04:00 04/13/18 08:00 04/13/18 09:31 Temperature 97.4 F L 97.6 F Pulse Rate 76 67 Respiratory Rate 18 20 Blood Pressure 153/91 H 148/78 H Pulse Oximetry 95 95 95 04/13/18 12:00 Temperature 97.7 F Pulse Rate 83 Respiratory Rate 20 Blood Pressure 128/78 Pulse Oximetry 95 Intake & Output 04/12/18 04/13/18 04/13/18 18:59 06:59 18:59 Intake Total 2850 / 2850 1920 / 1920 Output Total 4 / 4 Balance 2846 / 2846 1920 / 1920 Weight 100.6 kg Intake: IV 1450 / 1450 1550 / 1550 NS Inj 1,000 ML @ 145 mls/hr IV 1450 / 1450 1550 / 1550 .CONT .Q6H54M [facility] Rx#:[id number] Oral 1400 / 1400 370 / 370 Output: Stool 4 / 4 Other: # Voids 7 3 Date of Last Bowel Movement 04/07/18 04/12/18 04/13/18 # Bowel Movements 4 <Otf Copeland - Last Filed: 04/13/18 14:08> Results - Labs CBC & Chem 7: 04/13/18 04:59 04/13/18 04:59 Laboratory Results - last 24 hr 04/12/18 04/12/18 04/13/18 04:19 04:19 04:59 WBC 12.2 H RBC 4.41 L Hgb 13.8 Hct 39.2 MCV 89.1 MCH 31.4 MCHC 35.3 RDW 15.7 Plt Count 293 MPV 9.4 Sodium Potassium Chloride Carbon Dioxide Anion Gap BUN Creatinine Estimated GFR Random Glucose Hemoglobin A1c 6.8 H Calcium Total Bilirubin AST ALT Alkaline Phosphatase Total Protein Albumin Triglycerides 168 H Cholesterol 525 H LDL Cholesterol, Calc 468 H HDL Cholesterol 23.4 L Cholesterol/HDL Ratio 22.43 04/13/18 04:59 WBC RBC Hgb Hct MCV MCH MCHC RDW Plt Count MPV Sodium 136 Potassium 4.1 Chloride 106 Carbon Dioxide 20.7 L Anion Gap 9 BUN 21 H Creatinine 1.23 Estimated GFR 58 L Random Glucose 126 H Hemoglobin A1c Calcium 8.4 L Total Bilirubin 9.9 H AST 634 H ALT 1230 H Alkaline Phosphatase 685 H Total Protein 6.6 Albumin 3.0 L Triglycerides Cholesterol LDL Cholesterol, Calc HDL Cholesterol Cholesterol/HDL Ratio <Shira Andrews - Last Filed: 04/13/18 10:45> - Labs CBC & Chem 7: 04/13/18 04:59 04/13/18 04:59 Laboratory Results - last 24 hr 04/12/18 04/12/18 04/13/18 04:19 04:19 04:59 WBC 12.2 H RBC 4.41 L Hgb 13.8 Hct 39.2 MCV 89.1 MCH 31.4 MCHC 35.3 RDW 15.7 Plt Count 293 MPV 9.4 Sodium Potassium Chloride Carbon Dioxide Anion Gap BUN Creatinine Estimated GFR Random Glucose Hemoglobin A1c 6.8 H Calcium Total Bilirubin AST ALT Alkaline Phosphatase Total Protein Albumin Triglycerides 168 H Cholesterol 525 H LDL Cholesterol, Calc 468 H HDL Cholesterol 23.4 L Cholesterol/HDL Ratio 22.43 TSH Stl C.difficile DNA Amp St C. diff Tox Epid 027 04/13/18 04/13/18 04/13/18 04:59 04:59 10:30 WBC RBC Hgb Hct MCV MCH MCHC RDW Plt Count MPV Sodium 136 Potassium 4.1 Chloride 106 Carbon Dioxide 20.7 L Anion Gap 9 BUN 21 H Creatinine 1.23 Estimated GFR 58 L Random Glucose 126 H Hemoglobin A1c Calcium 8.4 L Total Bilirubin 9.9 H AST 634 H ALT 1230 H Alkaline Phosphatase 685 H Total Protein 6.6 Albumin 3.0 L Triglycerides Cholesterol LDL Cholesterol, Calc HDL Cholesterol Cholesterol/HDL Ratio TSH 2.030 Stl C.difficile DNA Amp Negative St C. diff Tox Epid 027 Negative <Otf Copeland - Last Filed: 04/13/18 14:08> Assessment and Plan (1) Biliary obstruction Status: Acute Code(s): K83.1 - Obstruction of bile duct (2) Hyperbilirubinemia Status: Acute Code(s): E80.6 - Other disorders of bilirubin metabolism (3) Transaminitis Status: Acute Code(s): R74.0 - Nonspecific elevation of levels of transaminase and lactic acid dehydrogenase [LDH] - Plan Patient seen earlier today. This patient is a 72-year-old male with past medical history significant for asthma, GERD, diabetes and BPH. Surgical history significant for shoulder history, back surgery, tonsillectomy and wrist surgery. Patient presented to [facility] with report of 10-day history of right upper quadrant sharp pain that radiated to epigastric area with nausea. Patient also endorses poor appetite. Upon arrival, patient was noted to have elevated transaminases. Patient reports subjective fevers denies chills. Our service has been consulted to evaluate patient for possible biliary obstruction. Transaminitis Elevated alk phos without evidence of biliary obstruction per MRCP-- Hepatic steatosis Possible hemochromatosis versus drug induced hepatitis, was on Augmentin prior to hospital visit 04/09/2018 HIDA scan:. Suspected poor hepatic function with not only slow uptake of radiotracer from the blood stream but no activity identified in the common bile duct or small bowel. No active disease in the gallbladder which is markedly decompressed. I reviewed the recent CT scan without evidence of biliary dilatation, pancreatic mass, or any other cause for common bile duct obstruction. 04/08/2018 gallbladder ultrasound:. Poorly visualized gallbladder. HIDA scan may help if cholecystitis is suspected. 04/08/2018 MRCP: Mild hepatosplenomegaly. Fatty liver. Several tiny subcentimeter hepatic cysts. No biliary ductal dilatation. Degenerative changes and scoliosis of thoracolumbar spine. WBC 12.2 hemoglobin 13.8 LFTs remain high, worsening. Total bilirubin 9.9 AST 634 ALT 1230 alk phos 685 Hepatitis panel nonreactive So far work up revealed high iron saturation and high Fe, Hfe pending liver bx pending - Acute onset of diarrhea, rise in wbc- will order stool studies - Itching- will add cholestyramine which might help with diarrhea as well Plan -Cardiac diet -Stool studies - Add Cholestyramine -Await rest of immunology -Await CMV, HSV -HFE hemochromatosis workup pending -Avoid hepatotoxins -Await liver bx -Monitor labs - Infectious disease consult to rule out atypical hepatitis -Supportive care -Further recommendations to follow This patient has been seen by myself and Dr. Copeland and this note is written on his behalf <Shira Andrews - Last Filed: 04/13/18 10:45> (1) Biliary obstruction Status: Acute Code(s): K83.1 - Obstruction of bile duct (2) Hyperbilirubinemia Status: Acute Code(s): E80.6 - Other disorders of bilirubin metabolism (3) Transaminitis Status: Acute Code(s): R74.0 - Nonspecific elevation of levels of transaminase and lactic acid dehydrogenase [LDH] - Attending Attestation I have seen and examined the patient and reviewed the relevant portions of the chart and discussed the patient's current complaints, results and findings with the EXCEPTIONAL STUDENT EDUCATION AIDE. We have reviewed the therapeutic plan for the patient. I agree with the above assessment and recommendations as documented above. Information the patient was recently on Augmentin. The Augmentin could have caused hepatotoxicity resulting in this type of jaundice with elevation liver enzymes. I expect his jaundice to persist for another week to 10 days. In the interim, full serology and viral profile is pending. <Otf Copeland - Last Filed: 04/13/18 14:08>
--- NOTE | 2018-04-13 11:22 | P.CONID ---
History of Present Illness Service: Infectious disease Consult date: 04/13/18 Requesting Physician: Sergo Laird Reason for Consult: Evaluate patient with hepatitis, unclear etiology Primary Care Provider: Caesar Faria History of Present Illness: Patient seen and examined. Records reviewed. Patient is a 72 yo M presented to the hospital for evaluation of some abdominal discomfort, nausea and vomiting. He saw his primary MD about 8 days ago for his asthma attack. He was give 5 medications, including, prednisone, augmentin , cough medicine and he thinks an allergy medicine. His asthma got better, but since he tooks the medications he started having abdominal discomfort, nausea and vomiting. He stopped taking the meds except for the augmentin and he continued to have symptoms. He has had some beers which is not unusual for him. He noted his stools to be very light in color. He had ssome subjective fevers. He has had poor appetie. Denies any sore throat or swollen glands. has not been around sick children. Only new meds are the ones he got for his asthma recently. Patient stated he had jaundice maybe 20 years ago and had work-up which came back negatoive. His LFT got better, so he did not have liver biopsy. Denies HIV risk factor. His hepatitis serology came back negative. Imaging studies no etiology found. he has not been febrile. His LFT are worsening. Still with abdominal discomfort. had diarrhea yesterday, a little better today, semiformed. Has cough , difficult to bring up phlegm. Some discomfort on R chest when he coughs. CMV and EBV done and pending. WBC normal. Gi evaluating patient for etiology of his hepatitis Infectious Disease has been consulted to evaluate for other infectious etiology of hepatitis. Review of Systems Constitutional: Reports anorexia, Reports chills, Reports fever(s), Reports lack of energy, Reports night sweats Eyes: Denies discharge, Denies dry eyes Ears, Nose, Mouth, and Throat: Denies dental pain, Denies difficulty swallowing , Denies ear pain, Denies nasal discharge, Denies nasal obstruction, Denies sore throat, Denies throat swelling Cardiovascular: Reports chest pain, Denies foot swelling, Denies leg swelling, Denies shortness of breath Respiratory: Reports cough, Reports pain on inspiration, Reports pain with cough , Denies coughing up blood Gastrointestinal: Reports abdominal pain, Reports change in stools, Reports loose stools, Reports nausea, Reports vomiting, Denies difficulty swallowing, Denies pain with swallowing Genitourinary: Denies difficulty urinating, Denies painful urination Musculoskeletal: Denies joint pain, Denies joint swelling Skin/Breast: Reports yellowing of the skin, Denies rash, Denies sores Neurologic: Denies dizziness PMFSH - History History Provided By: Patient, Family Member - Medical History Medical History: Medical History (Last Reviewed 04/08/18 @ 15:13 by Ranjit Coleman MD) Diabetes GERD (gastroesophageal reflux disease) GERD (gastroesophageal reflux disease) Pneumonia Prostate enlargement - Surgical History Surgical History: Surgical History (Last Reviewed 04/08/18 @ 15:13 by Ranjit Coleman MD) H/O shoulder surgery History of back surgery Hx of tonsillectomy S/P wrist surgery - Tobacco History Second Hand Smoke Exposure: No Tobacco Use In Past 30 Days: No Smoking Status: Current every day smoker Tobacco Type: Cigarettes - Alcohol History How Often Do You Have a Drink Containing Alcohol: Unable to Obtain - Substance Use History Substance History: No History of Abuse - Travel History Recent Travel in the [place] Within the Last 8 Weeks: Yes Recent Travel Out of the Country Within the Last 8 Weeks: No - Immunization History Tetanus Immunization: <5 Years Hx Influenza Vaccine This Season: No Medications and Allergies Active Medications: Active Medications Al Hydroxide/Mg Hydroxide (Milk Of James Nieto) 30 ml PO Q12H PRN PRN Reason: Mild Constipation Bisacodyl (Dulcolax Supp) 10 mg RECTAL DAILY PRN PRN Reason: SEVERE CONSITIPATION Budesonide/Formoterol Fumarate (Symbicort 160/4.5 Mcg Inh) 2 puff INH BID [facility] Last Admin: 04/13/18 08:57 Dose: 2 puff Calcium Carbonate (Tums Chew) 500 mg CHEW BID [facility] Last Admin: 04/13/18 08:55 Dose: 500 mg Cholestyramine Resin (Questran 4 Gm Pkt) 4 gm PO BID [facility] Enoxaparin Sodium (Lovenox Inj) 40 mg SQ Q24H [facility] Last Admin: 04/12/18 17:56 Dose: 40 mg Hydroxyzine HCl (Atarax) 25 mg PO Q6H PRN PRN Reason: ITCHING Sodium Chloride (Ns Inj) 1,000 mls @ 145 mls/hr IV.CONT .Q6H54M [facility] Last Admin: 04/13/18 04:17 Dose: 145 mls/hr Lactulose (Lactulose Liq) 30 ml PO DAILY PRN PRN Reason: SEVERE CONSITIPATION Latanoprost (Xalatan 0.005% Opth Drops) 1 drop EACH EYE HS [facility] Last Admin: 04/12/18 20:53 Dose: 1 drop Loperamide HCl (Imodium) 2 mg PO Q4H PRN PRN Reason: DIARRHEA Mineral Oil/Petrolatum/Phenylephrin (Preparation H Oint) 1 applicatio RECTAL Q6H PRN PRN Reason: HEMORRHOIDS Montelukast Sodium (Singulair) 10 mg PO DAILY@1800 [facility] Last Admin: 04/12/18 17:56 Dose: 10 mg Morphine Sulfate (Morphine Inj) 4 mg IV.PUSH Q3H PRN PRN Reason: BREAKTHROUGH PAIN Naloxone HCl (Narcan Inj) 0.4 mg IV.PUSH UNSCH PRN PRN Reason: SEE LABEL COMMENTS Pantoprazole Sodium (Protonix) 40 mg PO DAILY [facility] Last Admin: 04/13/18 08:55 Dose: 40 mg Prednisone (Deltasone) 20 mg PO BID [facility] Last Admin: 04/13/18 08:55 Dose: 20 mg Senna/Docusate Sodium (Марина-Colace) 1 tab PO BID [facility] Last Admin: 04/13/18 08:56 Dose: Not Given Sennosides (Senokot) 17.2 mg PO Q12H PRN PRN Reason: Moderate Constipation Sodium Chloride (Ns Flush) 2 ml IV.FLUSH BID [facility] Last Admin: 04/13/18 08:56 Dose: Not Given Sodium Chloride (Ns Flush) 2 ml IV.FLUSH PRN PRN PRN Reason: FLUSH AFTER USING IV ACCESS Tamsulosin HCl (Flomax) 0.4 mg PO DAILY [facility] Last Admin: 04/13/18 08:55 Dose: 0.4 mg Tramadol HCl (Ultram) 50 mg PO Q4H PRN PRN Reason: PAIN SCALE 3 TO 5 Tramadol HCl (Ultram) 100 mg PO Q4H PRN PRN Reason: PAIN SCALE 6 TO 10 Allergies Allergy/AdvReac Type Severity Reaction Status Date / Time No Known Allergies Allergy Verified 04/08/18 10:44 Home Medications Medication Instructions Recorded Confirmed Type albuterol sulfate 2 puff INHALATION Q4-6H PRN 04/08/18 04/08/18 History ipratropium-albuterol 3 ml INHALATION QID PRN 04/08/18 04/08/18 History montelukast 10 mg PO QPM 04/08/18 04/08/18 History omeprazole 40 mg PO DAILY 04/08/18 04/08/18 History tamsulosin 0.4 mg PO DAILY 04/08/18 04/08/18 History Exam Vital signs: Vital Signs 04/12/18 11:35 04/12/18 15:00 04/12/18 15:35 Temperature 97.4 F L 98.0 F Pulse Rate 96 H 94 H 92 H Respiratory Rate 20 14 20 Blood Pressure 139/80 136/81 Pulse Oximetry 94 L 93 L 04/12/18 20:00 04/12/18 20:02 04/13/18 00:00 Temperature 97.8 F 98.1 F Pulse Rate 84 71 76 Respiratory Rate 18 18 20 Blood Pressure 143/77 H 173/81 H Pulse Oximetry 96 96 95 04/13/18 02:03 04/13/18 04:00 04/13/18 08:00 Temperature 97.4 F L 97.6 F Pulse Rate 71 76 67 Respiratory Rate 18 20 Blood Pressure 165/80 H 153/91 H 148/78 H Pulse Oximetry 95 95 04/13/18 09:31 Temperature Pulse Rate Respiratory Rate Blood Pressure Pulse Oximetry 95 Intake & Output 04/12/18 04/13/18 04/13/18 18:59 06:59 18:59 Intake Total 2850 / 2850 1920 / 1920 Output Total / Balance 2846 / 2846 1920 / 1920 Weight 100.6 kg Intake: IV 1450 / 1450 1550 / 1550 NS Inj 1,000 ML @ 145 mls/hr IV 1450 / 1450 1550 / 1550 .CONT .Q6H54M [facility] Rx#:[id number] Oral 1400 / 1400 370 / 370 Output: Stool 4 / 4 Other: # Voids 7 3 Date of Last Bowel Movement 04/07/18 04/12/18 04/13/18 # Bowel Movements 4 Narrative: Physical examination GENERAL: Patient is a well-nourished, well-developed male, awake and alert, not in respiratory distress. SKIN: Cool and dry. No generalized rash, no ecchymoses and no evidence of embolic lesions. has jaundice HEAD: Atraumatic. Normocephalic. No temporal wasting, or tenderness. EYES: Ehrenberg conjunctiva. No petechia or hemorrhage. Pupils equal, round and reactive to light. Extraocular movements full and intact. Has scleral icterus. No injection or drainage. EARS, NOSE AND THROAT: Nose without bleeding or purulent nasal discharge. No sinus tenderness. Mucous membranes pink and moist. No oral lesions noted. No exudate. No oral thrush. NECK: Trachea midline. Supple and not tender, no meningeal signs. No lymphadenopathy CARDIOVASCULAR: Regular rate and rhythm. No murmurs, rubs or gallops heard RESPIRATORY: Clear to auscultation. Breath sounds equal bilaterally. No rales , wheezing or rhonchi ABDOMEN: Soft, globular, mild tenderness in epigastric region, mildly distended. Bowel sounds present and normoactive. No guarding. No rebound. No organomegaly. EXTREMITIES: No clubbing, cyanosis, or edema. No joint effusion, has good ROM. No calf tenderness. Well perfused and warm. NEUROLOGICAL: Awake and alert. Cranial nerves grossly intact. Motor grossly within normal limits. PSYCHIATRIC: Normal affect, calm and cooperative. LINE: No evidence of infection Results - Labs CBC & Chem 7: 04/13/18 04:59 04/13/18 04:59 Labs: Laboratory Results - last 24 hr 04/12/18 04/12/18 04/13/18 04:19 04:19 04:59 WBC 12.2 H RBC 4.41 L Hgb 13.8 Hct 39.2 MCV 89.1 MCH 31.4 MCHC 35.3 RDW 15.7 Plt Count 293 MPV 9.4 Sodium Potassium Chloride Carbon Dioxide Anion Gap BUN Creatinine Estimated GFR Random Glucose Hemoglobin A1c 6.8 H Calcium Total Bilirubin AST ALT Alkaline Phosphatase Total Protein Albumin Triglycerides 168 H Cholesterol 525 H LDL Cholesterol, Calc 468 H HDL Cholesterol 23.4 L Cholesterol/HDL Ratio 22.43 TSH 04/13/18 04/13/18 04:59 04:59 WBC RBC Hgb Hct MCV MCH MCHC RDW Plt Count MPV Sodium 136 Potassium 4.1 Chloride 106 Carbon Dioxide 20.7 L Anion Gap 9 BUN 21 H Creatinine 1.23 Estimated GFR 58 L Random Glucose 126 H Hemoglobin A1c Calcium 8.4 L Total Bilirubin 9.9 H AST 634 H ALT 1230 H Alkaline Phosphatase 685 H Total Protein 6.6 Albumin 3.0 L Triglycerides Cholesterol LDL Cholesterol, Calc HDL Cholesterol Cholesterol/HDL Ratio TSH 2.030 Assessment and Plan - Plan Impression Abnormal LFT, progresssing, etiology? - viral hepatitis serologies are negative - these are 3 most common viral etiologies for severe hepatitis - ?autoimmune - ?dry induced Hx jaundice when he was in his 50s, work-up negative then, resolved Hx asthma Recommendation Await liver biopsy He had CMV and EBV serologies ordered, results pending - could cause elevated LFT, but has not seen to this extent HIV to complete work-up Monitor progress I will follow with you Thank you for this consultation Explained plan to patient and
[2018-04-13] MEDS: Montelukast 10 MG Tablet PO SCH (18:06)
[2018-04-13] MEDS: Enoxaparin Inj 40 MG/0.4 ML Syringe SQ SCH (18:06)
[2018-04-13] MEDS: Latanoprost 0.005% Opth Drops 2.5 ML Bottle EACH EYE SCH (21:07)
[2018-04-14 05:19] LABS: Hematocrit 37.9 % (39.0-51.0); Mean Corpuscular HGB Conc 34.4 % (32.0-36.0); Mean Corpuscular Hemoglobin 30.7 pg (27.0-34.0); Mean Corpuscular Volume 89.1 fL (80.0-100.0); Mean Platelet Volume 9.1 fL (7.0-11.0); Platelet Count 298 th/mm3 (150-450); Red Blood Count 4.25 mil/mm3 (4.50-5.90); Red Cell Distribution Width 15.6 % (11.6-17.2); White Blood Count 12.4 th/mm3 (4.0-11.0)
[2018-04-14 05:35] LABS: Albumin 2.8 g/dL (3.4-5.0); Anion Gap 8 meq/L (5-15); Aspartate Aminotransferase 304 U/L (15-37); Blood Urea Nitrogen 27 mg/dL (7-18); Calcium 8.7 mg/dL (8.5-10.1); Carbon Dioxide 21.7 meq/L (21.0-32.0); Chloride 102 meq/L (98-107); Glomerular Filtration Rate 60 mL/min (>89); Glucose,Random 196 mg/dL (74-106); Potassium 4.4 meq/L (3.5-5.1); Sodium 132 meq/L (136-145)
[2018-04-14 05:57] LABS: Alanine Aminotransferase 1030 U/L (12-78); Alkaline Phosphatase 606 U/L (45-117); Total Protein 6.3 g/dL (6.4-8.2)
[2018-04-14] MEDS: Senna/Docusate Sodium 8.6/50 MG Tablet PO SCH (08:11)
[2018-04-14] MEDS: Budesonide-Formoterol 160/4.5 MCG 6 GM Inhaler INH SCH (08:12)
[2018-04-14] MEDS: predniSONE 20 MG Tablet PO SCH (08:12)
[2018-04-14 09:45] VITALS: RESP 18; TEMP 97.4
--- NOTE | 2018-04-14 10:00 | P.PNFP ---
Subjective Interval history: Patient was seen and evaluated this morning. He feels much better than yesterday. Pain and itching have completely resolved. He denies shortness of breath, chest pain, nausea, vomiting, diarrhea and constipation. Patient recalled taking Augmentin x8 days prior to admission. He stopped the course of antibiotics early due to severe abdominal pain, increased frequency in stools and dark urine. GI has discussed with patient that Augmentin can cause liver injury. All questions were answered. <Effie Martini - 04/14/18 14:13> Results - Labs Result diagrams: 04/14/18 04:49 04/14/18 04:49 <Ranjit Coleman - 04/14/18 19:35> Abnormal lab results 04/14/18 04/14/18 Range/Units 04:49 04:49 WBC 12.4 H (4.0-11.0) th/mm3 RBC 4.25 L (4.50-5.90) mil/mm3 Hct 37.9 L (39.0-51.0) % Sodium 132 L (136-145) meq/L BUN 27 H (7-18) mg/dL Estimated GFR 60 L (>89) mL/min Random Glucose 196 H (74-106) mg/dL Total Bilirubin 6.1 H (0.2-1.0) mg/dL Direct Bilirubin 4.7 H (0.0-0.2) mg/dL Indirect Bilirubin 1.4 H (0.0-0.8) mg/dL AST 304 H (15-37) U/L ALT 1030 H (12-78) U/L Alkaline Phosphatase 606 H (45-117) U/L Total Protein 6.3 L (6.4-8.2) g/dL Albumin 2.8 L (3.4-5.0) g/dL Short CBC 04/14/18 Range/Units 04:49 WBC 12.4 H (4.0-11.0) th/mm3 Hgb 13.0 (13.0-17.0) gm/dL Hct 37.9 L (39.0-51.0) % Plt Count 298 (150-450) th/mm3 BMP 04/14/18 04:49 Sodium 132 L Potassium 4.4 Chloride 102 Carbon Dioxide 21.7 BUN 27 H Creatinine 1.20 Calcium 8.7 Liver Function 04/14/18 Range/Units 04:49 Total Bilirubin 6.1 H (0.2-1.0) mg/dL Direct Bilirubin 4.7 H (0.0-0.2) mg/dL AST 304 H (15-37) U/L ALT 1030 H (12-78) U/L Alkaline Phosphatase 606 H (45-117) U/L Albumin 2.8 L (3.4-5.0) g/dL <Ranjit Coleman - 04/14/18 19:35> Abnormal lab results 04/14/18 04/14/18 Range/Units 04:49 04:49 WBC 12.4 H (4.0-11.0) th/mm3 RBC 4.25 L (4.50-5.90) mil/mm3 Hct 37.9 L (39.0-51.0) % Sodium 132 L (136-145) meq/L BUN 27 H (7-18) mg/dL Estimated GFR 60 L (>89) mL/min Random Glucose 196 H (74-106) mg/dL Total Bilirubin 6.1 H (0.2-1.0) mg/dL Direct Bilirubin 4.7 H (0.0-0.2) mg/dL Indirect Bilirubin 1.4 H (0.0-0.8) mg/dL AST 304 H (15-37) U/L ALT 1030 H (12-78) U/L Alkaline Phosphatase 606 H (45-117) U/L Total Protein 6.3 L (6.4-8.2) g/dL Albumin 2.8 L (3.4-5.0) g/dL Short CBC 04/14/18 Range/Units 04:49 WBC 12.4 H (4.0-11.0) th/mm3 Hgb 13.0 (13.0-17.0) gm/dL Hct 37.9 L (39.0-51.0) % Plt Count 298 (150-450) th/mm3 BMP 04/14/18 04:49 Sodium 132 L Potassium 4.4 Chloride 102 Carbon Dioxide 21.7 BUN 27 H Creatinine 1.20 Calcium 8.7 Liver Function 04/14/18 Range/Units 04:49 Total Bilirubin 6.1 H (0.2-1.0) mg/dL Direct Bilirubin 4.7 H (0.0-0.2) mg/dL AST 304 H (15-37) U/L ALT 1030 H (12-78) U/L Alkaline Phosphatase 606 H (45-117) U/L Albumin 2.8 L (3.4-5.0) g/dL <Labell Effie Chisholm - 04/14/18 09:59> Physical Exam Vital signs: Vital Signs 04/13/18 20:00 04/13/18 20:37 04/14/18 00:00 Temperature 97.5 F L 97.9 F Pulse Rate 66 62 Respiratory Rate 17 17 Blood Pressure 139/75 96/54 L Pulse Oximetry 95 97 93 L 04/14/18 08:00 04/14/18 12:00 Temperature 97.4 F L 97.4 F L Pulse Rate 58 L 93 H Respiratory Rate 18 18 Blood Pressure 137/68 143/87 H Pulse Oximetry 94 L 96 Intake & Output 04/14/18 04/14/18 04/15/18 06:59 18:59 06:59 Intake Total 900 / 900 Balance 900 / 900 Weight 101.1 kg Intake: Oral 900 / 900 Other: # Voids 5 Date of Last Bowel Movement 04/13/18 <Ranjit Coleman - 04/14/18 19:35> Vital Signs 04/13/18 12:00 04/13/18 16:00 04/13/18 20:00 Temperature 97.7 F 97.7 F 97.5 F L Pulse Rate 83 86 66 Respiratory Rate 20 20 17 Blood Pressure 128/78 135/79 139/75 Pulse Oximetry 95 96 95 04/13/18 20:37 04/14/18 00:00 04/14/18 08:00 Temperature 97.9 F 97.4 F L Pulse Rate 62 58 L Respiratory Rate 17 18 Blood Pressure 96/54 L 137/68 Pulse Oximetry 97 93 L 94 L Intake & Output 04/13/18 04/14/18 04/14/18 18:59 06:59 18:59 Intake Total 960 / 960 900 / 900 Balance 960 / 960 900 / 900 Weight 101.1 kg Intake: Oral 960 / 960 900 / 900 Other: # Voids 4 5 Date of Last Bowel Movement 03/02/19 03/02/19 # Bowel Movements 2 <Labell R2Effie - 04/14/18 09:59> Narrative: GENERAL: Well-appearing 74-year-old male, sitting up in chair , in no acute distress. SKIN: Warm and dry. HEAD: Atraumatic. Normocephalic. CARDIOVASCULAR: Regular rate and rhythm. No murmur appreciated. RESPIRATORY: No accessory muscle use. Clear to auscultation. Breath sounds equal bilaterally. GASTROINTESTINAL: Abdomen soft, nontender to palpation of the abdomen, nondistended. MUSCULOSKELETAL: No obvious deformities. No clubbing. No cyanosis. No edema. NEUROLOGICAL: Awake and alert. No obvious cranial nerve deficits. PSYCHIATRIC: Appropriate mood and affect; insight and judgment normal. <Effie Martini - 04/14/18 14:13> Assessment and Plan - Assessment (1) Hyperbilirubinemia Code(s): E80.6 - Other disorders of bilirubin metabolism Status: Acute (2) Transaminitis Code(s): R74.0 - Nonspecific elevation of levels of transaminase and lactic acid dehydrogenase [LDH] Status: Acute (3) GERD (gastroesophageal reflux disease) Code(s): K21.9 - Gastro-esophageal reflux disease without esophagitis Status: Acute (4) Asthma Code(s): J45.909 - Unspecified asthma, uncomplicated Status: Acute (5) BPH (benign prostatic hyperplasia) Code(s): N40.0 - Benign prostatic hyperplasia without lower urinary tract symptoms Status: Acute (6) Hemorrhoids Code(s): K64.9 - Unspecified hemorrhoids Status: Acute (7) Nutrition, metabolism, and development symptoms Code(s): R63.8 - Other symptoms and signs concerning food and fluid intake Status: Acute (8) DVT prophylaxis Status: Acute <Ranjit Coleman Jasbir - 04/14/18 19:35> (1) Hyperbilirubinemia Code(s): E80.6 - Other disorders of bilirubin metabolism Status: Acute Plan: Possible Augmentin-induced hepatotoxicity. Total Bilirubin 6.1; downtrending. * Direct Bilirubin 4.7. * Indirect Bilirubin 1.4. AST/ALT/ALK phos elevated but improved from yesterday. Hepatitis panel non-reactive. HIV non-reactive. CMV, EBV and HSV pending. JESSI negative. Anti-Smooth Muscle Ab negative. Additional lab studies pending. Initial stool studies negative. Repeat stool studies pending. Liver biopsy pending. Right upper quadrant ultrasound: 1. Poorly visualized gallbladder. HIDA scan may help if cholecystitis is suspected. HIDA scan: Suspected poor hepatic function with not only slow uptake of radiotracer from the blood stream but no activity identified in the common bile duct or small bowel. No active disease in the gallbladder which is markedly decompressed. ERCP: 1. Mild hepatosplenomegaly. 2. Fatty liver. 3. Several tiny subcentimeter hepatic cysts. 4. No biliary ductal dilatation. 5. Degenerative changes and scoliosis of thoracolumbar spine. GI consulted; patient may be discharged from their standpoint, follow-up in one week; signing off 04/14/18. (2) Transaminitis Code(s): R74.0 - Nonspecific elevation of levels of transaminase and lactic acid dehydrogenase [LDH] Status: Acute Plan: See plan above. (3) GERD (gastroesophageal reflux disease) Code(s): K21.9 - Gastro-esophageal reflux disease without esophagitis Status: Acute Plan: Patient with history of GERD. Continue home medication. TUMS PO BID. (4) Asthma Code(s): J45.909 - Unspecified asthma, uncomplicated Status: Acute Plan: Patient with history of asthma. Continue to alternate albuterol nebs and duo nebs. Continue home medication. (5) BPH (benign prostatic hyperplasia) Code(s): N40.0 - Benign prostatic hyperplasia without lower urinary tract symptoms Status: Acute Plan: Patient with history of BPH. Continue home medication. (6) Hemorrhoids Code(s): K64.9 - Unspecified hemorrhoids Status: Acute Plan: Patient with history of hemorrhoids. Preparation H topically to rectum q6hr PRN. (7) Nutrition, metabolism, and development symptoms Code(s): R63.8 - Other symptoms and signs concerning food and fluid intake Status: Acute Plan: Fluid: Tolerating PO. Diet: Regular diet. Electrolytes: Monitor and replete as necessary. (8) DVT prophylaxis Status: Acute Plan: Lovenox 40mg SQ q24hr. <Labell Effie Chisholm - 04/14/18 13:53> - Attending Attestation ok to be discharged from GI standpoint, they believe it is augmentin induced liver tox. labs finally downtrending. obviously needs close follow up from PCP and GI will still follow up results of liver biopsy and contact patient <Ranjit Coleman - 04/14/18 19:34>
--- NOTE | 2018-04-14 11:15 | P.PNGI ---
Subjective Interval history: Patient is doing great today No more Diarrhea or abdominal pain. Going home soon <Shira Andrews - Last Filed: 04/14/18 11:34> Physical Exam Vital signs: Vital Signs 04/13/18 12:00 04/13/18 16:00 04/13/18 20:00 Temperature 97.7 F 97.7 F 97.5 F L Pulse Rate 83 86 66 Respiratory Rate 20 20 17 Blood Pressure 128/78 135/79 139/75 Pulse Oximetry 95 96 95 04/13/18 20:37 04/14/18 00:00 04/14/18 08:00 Temperature 97.9 F 97.4 F L Pulse Rate 62 58 L Respiratory Rate 17 18 Blood Pressure 96/54 L 137/68 Pulse Oximetry 97 93 L 94 L Intake & Output 04/13/18 04/14/18 04/14/18 18:59 06:59 18:59 Intake Total 960 / 960 900 / 900 Balance 960 / 960 900 / 900 Weight 101.1 kg Intake: Oral 960 / 960 900 / 900 Other: # Voids 4 5 Date of Last Bowel Movement 04/13/18 04/13/18 # Bowel Movements 2 <Otf Copeland - Last Filed: 04/14/18 11:16> Vital signs: Vital Signs 04/13/18 12:00 04/13/18 16:00 04/13/18 20:00 Temperature 97.7 F 97.7 F 97.5 F L Pulse Rate 83 86 66 Respiratory Rate 20 20 17 Blood Pressure 128/78 135/79 139/75 Pulse Oximetry 95 96 95 04/13/18 20:37 04/14/18 00:00 04/14/18 08:00 Temperature 97.9 F 97.4 F L Pulse Rate 62 58 L Respiratory Rate 17 18 Blood Pressure 96/54 L 137/68 Pulse Oximetry 97 93 L 94 L Intake & Output 04/13/18 04/14/18 04/14/18 18:59 06:59 18:59 Intake Total 960 / 960 900 / 900 Balance 960 / 960 900 / 900 Weight 101.1 kg Intake: Oral 960 / 960 900 / 900 Other: # Voids 4 5 Date of Last Bowel Movement 04/13/18 04/13/18 # Bowel Movements 2 Narrative: GENERAL: Well-appearing 74-year-old male, sitting up in chair , in no acute distress. SKIN: Warm and dry. HEAD: Atraumatic. Normocephalic. EYES: EOMI. + scleral icterus. No injection or drainage. CARDIOVASCULAR: Regular rate and rhythm. No murmur appreciated. RESPIRATORY: No accessory muscle use. Clear to auscultation. Breath sounds equal bilaterally. GASTROINTESTINAL: Abdomen soft, nontender to palpation of the abdomen, nondistended. MUSCULOSKELETAL: No obvious deformities. No clubbing. No cyanosis. No edema. NEUROLOGICAL: Awake and alert. No obvious cranial nerve deficits. PSYCHIATRIC: Appropriate mood and affect; insight and judgment normal. <Shira Andrews - Last Filed: 04/14/18 11:34> Results - Labs CBC & Chem 7: 04/14/18 04:49 04/14/18 04:49 Laboratory Results - last 24 hr 04/09/18 04/13/18 04/14/18 07:00 10:30 04:49 WBC RBC Hgb Hct MCV MCH MCHC RDW Plt Count MPV Sodium 132 L Potassium 4.4 Chloride 102 Carbon Dioxide 21.7 Anion Gap 8 BUN 27 H Creatinine 1.20 Estimated GFR 60 L Random Glucose 196 H Calcium 8.7 Total Bilirubin 6.1 H Direct Bilirubin 4.7 H Indirect Bilirubin 1.4 H AST 304 H ALT 1030 H Alkaline Phosphatase 606 H Total Protein 6.3 L Albumin 2.8 L Stl C.difficile DNA Amp Negative St C. diff Tox Epid 027 Negative Mitochondria M2 IgG Ab Less than 20.0 HIV 1&2 Ab/P24 Ag 4thGn 04/14/18 04/14/18 04:49 04:49 WBC 12.4 H RBC 4.25 L Hgb 13.0 Hct 37.9 L MCV 89.1 MCH 30.7 MCHC 34.4 RDW 15.6 Plt Count 298 MPV 9.1 Sodium Potassium Chloride Carbon Dioxide Anion Gap BUN Creatinine Estimated GFR Random Glucose Calcium Total Bilirubin Direct Bilirubin Indirect Bilirubin AST ALT Alkaline Phosphatase Total Protein Albumin Stl C.difficile DNA Amp St C. diff Tox Epid 027 Mitochondria M2 IgG Ab HIV 1&2 Ab/P24 Ag 4thGn Nonreactive Microbiology 04/13/18 10:30 Stool Enteric Pathogens (PCR) - Final No enteric pathogens detected by PCR (No Salmonella sp., Shigella sp., Campylobacter sp., Yersinia enterocolitica, Vibrio sp., Norovirus, or EHEC (Shiga Toxin 1 or Shiga Toxin 2) detected. <Otf Copeland - Last Filed: 04/14/18 11:16> - Labs CBC & Chem 7: 04/14/18 04:49 04/14/18 04:49 Laboratory Results - last 24 hr 04/09/18 04/13/18 04/14/18 07:00 10:30 04:49 WBC RBC Hgb Hct MCV MCH MCHC RDW Plt Count MPV Sodium 132 L Potassium 4.4 Chloride 102 Carbon Dioxide 21.7 Anion Gap 8 BUN 27 H Creatinine 1.20 Estimated GFR 60 L Random Glucose 196 H Calcium 8.7 Total Bilirubin 6.1 H Direct Bilirubin 4.7 H Indirect Bilirubin 1.4 H AST 304 H ALT 1030 H Alkaline Phosphatase 606 H Total Protein 6.3 L Albumin 2.8 L Stl C.difficile DNA Amp Negative St C. diff Tox Epid 027 Negative Mitochondria M2 IgG Ab Less than 20.0 HIV 1&2 Ab/P24 Ag 4thGn 04/14/18 04/14/18 04:49 04:49 WBC 12.4 H RBC 4.25 L Hgb 13.0 Hct 37.9 L MCV 89.1 MCH 30.7 MCHC 34.4 RDW 15.6 Plt Count 298 MPV 9.1 Sodium Potassium Chloride Carbon Dioxide Anion Gap BUN Creatinine Estimated GFR Random Glucose Calcium Total Bilirubin Direct Bilirubin Indirect Bilirubin AST ALT Alkaline Phosphatase Total Protein Albumin Stl C.difficile DNA Amp St C. diff Tox Epid 027 Mitochondria M2 IgG Ab HIV 1&2 Ab/P24 Ag 4thGn Nonreactive Microbiology 04/13/18 10:30 Stool Enteric Pathogens (PCR) - Final No enteric pathogens detected by PCR (No Salmonella sp., Shigella sp., Campylobacter sp., Yersinia enterocolitica, Vibrio sp., Norovirus, or EHEC (Shiga Toxin 1 or Shiga Toxin 2) detected. <Shira Andrews - Last Filed: 04/14/18 11:34> Assessment and Plan (1) Biliary obstruction Status: Acute Code(s): K83.1 - Obstruction of bile duct (2) Hyperbilirubinemia Status: Acute Code(s): E80.6 - Other disorders of bilirubin metabolism (3) Transaminitis Status: Acute Code(s): R74.0 - Nonspecific elevation of levels of transaminase and lactic acid dehydrogenase [LDH] - Attending Attestation I have seen and examined the patient and reviewed the relevant portions of the chart and discussed the patient's current complaints, results and findings with the VALIDATION CONSULTANT. We have reviewed the therapeutic plan for the patient. I agree with the above assessment and recommendations as documented above. The patient suffered from Augmentin-induced drug injury to the liver. His liver profile has now started to improve. He is ready for discharge. Have him follow-up in our office in 1-2 weeks to review results of liver biopsy performed. We will recheck his liver profile at that time. We will sign off of the case at this time <Otf Copeland - Last Filed: 04/14/18 11:16> (1) Biliary obstruction Status: Acute Code(s): K83.1 - Obstruction of bile duct (2) Hyperbilirubinemia Status: Acute Code(s): E80.6 - Other disorders of bilirubin metabolism (3) Transaminitis Status: Acute Code(s): R74.0 - Nonspecific elevation of levels of transaminase and lactic acid dehydrogenase [LDH] - Plan Patient seen earlier today. This patient is a 72-year-old male with past medical history significant for asthma, GERD, diabetes and BPH. Surgical history significant for shoulder history, back surgery, tonsillectomy and wrist surgery. Patient presented to [facility] with report of 10-day history of right upper quadrant sharp pain that radiated to epigastric area with nausea. Patient also endorses poor appetite. Upon arrival, patient was noted to have elevated transaminases. Patient reports subjective fevers denies chills. Our service has been consulted to evaluate patient for possible biliary obstruction. Transaminitis Elevated alk phos without evidence of biliary obstruction per MRCP-- Hepatic steatosis Possible hemochromatosis versus drug induced hepatitis, was on Augmentin prior to hospital visit 04/09/2018 HIDA scan:. Suspected poor hepatic function with not only slow uptake of radiotracer from the blood stream but no activity identified in the common bile duct or small bowel. No active disease in the gallbladder which is markedly decompressed. I reviewed the recent CT scan without evidence of biliary dilatation, pancreatic mass, or any other cause for common bile duct obstruction. 04/08/2018 gallbladder ultrasound:. Poorly visualized gallbladder. HIDA scan may help if cholecystitis is suspected. 04/08/2018 MRCP: Mild hepatosplenomegaly. Fatty liver. Several tiny subcentimeter hepatic cysts. No biliary ductal dilatation. Degenerative changes and scoliosis of thoracolumbar spine LFTs and Total bilirubin with marked improvement today Hepatitis panel nonreactive So far work up revealed high iron saturation and high Fe, Hfe pending liver bx pending - Acute onset of diarrhea, rise in wbc- Negative stool studies, no more diarrhea - Itching- Resolved, not very keen to taking cholestyramine, will switch to PrN Plan -Cardiac diet - Cholestyramine PRN -Await rest of immunology -Await CMV, HSV -HFE hemochromatosis workup pending - S/p ID consult -Avoid hepatotoxins -Await liver bx -Monitor labs - Can go home form GI stand point - F/u with GI upon discharge -Gi will sign off This patient has been seen by myself and Dr. Copeland and this note is written on his behalf <Shira Andrews - Last Filed: 04/14/18 11:34>
[2018-04-14 12:56] VITALS: BP 143/87; PULSE 93; O2SAT 96
[2018-04-16 16:07] LABS: Specimen HFE WB Whole Blood
== END 2018-04-14 15:36 | disposition home or self-care (01) | DRG 442 ==
LOC: NEPD 09:46 → NEDA 15:07 → N07 16:50
PROVIDERS: ADMIT Family Medicine; ATTEND Family Medicine
CPT/HCPCS: 47000; 71010; 71045; 74177; 74181; 76360; 76377; 76705; 77012; 78226; 80053; 80061; 80074; 80076; 81001; 81256; 82103; 82105; 82247; 82248; 82378; 82390; 82728; 82977; 83010; 83036; 83520; 83540; 83550; 83605; 83615; 83690; 83735; 84443; 84484; 85025; 85027; 85044; 85610; 85730; 86021; 86038; 86255; 86256; 86301; 87328; 87329; 87389; 87493; 87496; 87497; 87506; 87529; 87799; 88307; 88313; 90761; 90774; 90775; 90784; 93005; 94640; 94664; 94665; 96361; 96374; 96375; 99152; 99285; A9513; A9537; C1097; C8952; J1650; J2250; J2270; J2405; J2930; J3010; J7030; J7506; J7512; Q9967